=== PATIENT | female | born 1970 | race Caucasian/White ===

== ENCOUNTER 2023-03-24 13:01 | Outpatient (OUT) | payer BC, SELFPAY | END 2023-03-24 13:02 | disposition home or self-care (01) | PROVIDERS: Visit Provider Urology | DX: Z01.818 Encounter for other preprocedural examination (principal); N20.1 Calculus of ureter ==

== ENCOUNTER 2023-04-01 08:38 | Day surgery (SDC) | payer BC, SELFPAY ==
[2023-03-24 13:57] VITALS: BP 121/73; PULSE 84; RESP 20; TEMP 36.3; O2SAT 97; BMI 30.2
[2023-04-01] VITALS (7 sets, daily range): BP systolic 103–168; BP diastolic 74–106; PULSE 77–102; RESP 14–22; TEMP 36.3; O2SAT 96–99; BMI 29.7
[2023-04-01] MEDS: LACTATED RINGER'S SOLUTION 1,000 ML 50 ML IV (09:00)
[2023-04-01] MEDS: CIPROFLOXACIN IN 5 % DEXTROSE 400 MG/200 ML PIGGYBACK 200 MG IV (09:59)
--- NOTE | 2023-04-01 11:38 | P.URON_ITS ---
Urology Surgery Operative Note Operative Note Procedure Date: 04/01/23 Time Out Performed: yes Pre-op Diagnosis: right ureteral calculi, large Post-op Diagnosis: same as pre-op Procedures performed: #1. Cystoscopy. #2. Right rigid ureteral dilation. #3. Right ureteroscopy. #4. holmium laser lithotripsy of very large right ureteral stone burden. #5. Stone basket extraction of ureteral fragments. #6. Right ureteral stent change to 6 Citizen Of [place]. Anesthesia: GETA Primary Surgeon: Basil Caputo Complications: none Estimated blood loss (mL): 5 Findings: extremeely large right ureteral stone burden; greater than 3 cm Specimens: right ureteral stone fragments Drains: 6 Frrench variable length right ureteral stent Indications for Procedures: this lady has 2 large right ureteral stones. One of them is 2 cm and the other is 1.4 cm. She was stented several weeks ago. She now presents for definitive ureteroscopic laser lithotripsy and possible stent change. She has signed an informed consent after all the risks were explained. Detailed description of Procedure: The patient was brought to the operating room and placed on the operating room table in the supine position. SCDs were placed on the lower extremities and turned on and functioning during the entire case. Timeout was done by all parties in the room. We all agreed upon the patient's identification and the planned procedures for this patient. Genn. anesthesia was then administered. The patient was then repositioned into the modified dorsal lithotomy position. All pressure points were satisfactorily padded. Genitalia were sterilely prepped and draped in usual fashion.I started by passing a 22 Citizen Of [place] Olympus cystoscope per urethra and into the bladder. The stent was identified. A flexible grasping forceps was passed and the stent and was grasped and brought out the urethral meatus. I then slid a Glidewire through the stent up into the kidney and remove the old stent. An 04/19 ureteral access sheath was then used to dilate the distal ureter. The stylette and wire were then removed. The tip of the sheath was at the L5. I then passed a flexible ureteroscope through the sheath and into the ureter and got up to the 1st of the 2 large stones. I passed a 272 ? holmium laser fiber through the scope and made contact with the stone. I then did laser lithotripsy at [place] and then 12 W continuously with the dusting mode. I lasered for over a solid our. I went through the 2 large ureteral stones.there was copious amounts of laser dust and sand and gravel. The ureter was extremely dilated in this region. I used a 0 tip nitinol basket and engaged numerous pieces and extracted them out and these were sent for stone analysis. I then did pyeloscopy to tiera a few of the larger pieces up into the kidney and lasered them up there. Once all the stone was dusted the scope was removed. A wire was passed up the sheath into the kidney and the sheath was removed. The cystoscope was backloaded over the wire and passed into the bladder. I then slid a new 6 Citizen Of [place] variable length ureteral stent over the wire up into the kidney. The wire was removed and there were good curls in the kidney and in the bladder. The bladder was drained of its contents. Scope was then removed. The anesthetic was then reversed. She was then transferred to a [facility] bed and wheeled to PACU in stable condition.
[2023-04-01] MEDS: SOLIFENACIN SUCCINATE 10 MG TABLET PO (12:06)
--- NOTE | 2023-04-01 12:24 | PC.NURSE ---
Up to bathroom and voids pink clear urine without difficulty
[2023-04-08 21:08] LABS: CaHPO4 (Brushite) 70 % (.); Calcium Oxalate Monohydrate 20 % (.); Calcium phosphate (hydroxyl) 10 % (.); Size 5x5 mm (.)
== END 2023-04-01 12:40 | disposition home or self-care (01) ==
PROVIDERS: Visit Provider Urology
PROC: (CPT 52356; principal; 2023-04-01 10:00)
DX: N20.1 Calculus of ureter (principal); I10 Essential (primary) hypertension; Z87.442 Personal history of urinary calculi; Z90.710 Acquired absence of both cervix and uterus; F17.210 Nicotine dependence, cigarettes, uncomplicated
CPT/HCPCS: 52356; 76000; 82365; 99999; C1874; J2704

== ENCOUNTER 2023-04-30 08:35 | Outpatient (OUT) | payer BC, SELFPAY ==
[2023-04-30 09:30] LABS: Basophils Percent Auto 0.8 % (0.2-2.0); Eosinophils Absolute Auto 0.1 10^3/uL (0.0-0.7); Eosinophils Percent Auto 2.1 % (0.9-7.0); Hematocrit 33.2 % (36.0-48.0); Hemoglobin 11.5 g/dL (12.0-16.0); Immature Granulocytes Abs Auto 0.01 10^3/uL (0.00-0.03); Immature Granulocytes Pct Auto 0.2 % (0.0-0.5); Lymphocytes Absolute Auto 1.5 10^3/uL (1.2-3.8); Lymphocytes Percent Auto 29.2 % (20.5-60.0); Mean Corpuscular HGB Conc 34.6 g/dL (29.9-35.2); Mean Corpuscular Volume 95.1 fL (81.0-99.0); Mean Platelet Volume 9.5 fL (9.5-13.5); Monocytes Absolute Auto 0.4 10^3/uL (0.3-0.8); Monocytes Percent Auto 7.2 % (1.7-12.0); Neutrophils Absolute Auto 3.2 10^3/uL (1.4-6.5); Neutrophils Percent Auto 60.5 % (43.0-75.0); Platelet Count 298 10^3/uL (150-450); Red Blood Count 3.49 10^6/uL (4.20-5.40); Red Cell Distribution Width 12.7 % (11.0-15.0); White Blood Count 5.3 10^3/uL (4.0-11.0)
[2023-04-30 09:37] LABS: Anion Gap 11.7; BUN Creatinine Ratio 27.5; Calcium 8.7 mg/dL (8.5-10.1); Carbon Dioxide 27.7 mmol/L (21.0-32.0); Chloride 105 mmol/L (98-107); Estimated GFR (African America >60 (>=60); Estimated GFR (Non-African Ame >60 (>=60); Glucose 100 mg/dL (74-106); Potassium 3.4 mmol/L (3.5-5.1); Sodium 141 mmol/L (136-145)
[2023-04-30 09:42] LABS: INR 0.97; Partial Thromboplastin Time 26.5 sec (22.3-36.2); Prothrombin Time 10.3 sec (9.0-11.6)
== END 2023-04-30 08:36 | disposition home or self-care (01) ==
LOC: PST 08:36
PROVIDERS: Visit Provider Urology
DX: Z01.812 Encounter for preprocedural laboratory examination (principal); N20.1 Calculus of ureter; R31.9 Hematuria, unspecified; E78.5 Hyperlipidemia, unspecified
CPT/HCPCS: 80048; 85025; 85610; 85730

== ENCOUNTER 2023-05-03 09:37 | Day surgery (SDC) | payer BC, SELFPAY ==
[2023-04-30 09:20] VITALS: BP 154/98; PULSE 82; RESP 18; TEMP 36.3; O2SAT 98; BMI 28.7
[2023-05-03] VITALS (9 sets, daily range): BP systolic 156–185; BP diastolic 83–102; PULSE 89–112; RESP 12–22; TEMP 36.1–36.2; O2SAT 94–100; BMI 29.4
--- NOTE | 2023-05-03 | FL_ITS ---
[place] [id number] Patient Name: TIFFANIE PETERSEN MRN: [id number] date: 1970 Sex: F Assigned Patient [facility]: [facility] Current Patient Location: Accession/Order Number: [id number] Exam Date: 05/03/2023 13:13 Report Date: 05/04/2023 08:13 At the request of: HASMUKH OVALLE Procedure: FL fluoroscopy <1hr NON-READ EXAM: FL fluoroscopy <1hr NON-READ HISTORY: RIGHT KIDNEY STONE TECHNIQUE: FINDINGS: Please see Operative Report. Electronically authenticated by: RADIOLOGIST NO Date: 05/04/2023 08:13
[2023-05-03] MEDS: LACTATED RINGER'S SOLUTION 1,000 ML 50 ML IV ×2 (10:14→13:54)
[2023-05-03] MEDS: CIPROFLOXACIN IN 5 % DEXTROSE 400 MG/200 ML PIGGYBACK 200 MG IV (12:51)
--- NOTE | 2023-05-03 14:55 | PM.URSON ---
Urology Surgery Operative Note Operative Note Procedure Date: 05/03/23 Time Out Performed: yes Pre-op Diagnosis: right ureteral Steinstrasse Post-op Diagnosis: same as pre-op Procedures performed: #1. Cystoscopy. #2. Right stent change to 6 [place] variable length. #3. Right ureteroscopy. #4. Laser lithotripsy of multiple ureteral stone fragments. #5. Stone basket extraction. Anesthesia: General-LMA Primary Surgeon: Basil Caputo Complications: none Estimated blood loss (mL): 5 Findings: multiple stone fragments within the right ureter; some of these impacted. Specimens: right ureteral calculi fragments Indications for Procedures: this lady had 2 large stones in her right ureter. One was 14 mm the other was 20 mm. She underwent laser lithotripsy and stent placement several weeks agoo. She developed Steinstrasse from the copious fragments. She now presents for repeat ureteroscopic laser lithotripsy and stent change.she has signed an informed consent for these procedures after risks were explained. Some of these include bleeding, infection, anesthesia, ureteral stricture development and stone recurreence to name a few. Detailed description of Procedure: The patient was brought to the operating room and placed on the operating room table in the supine position. SCDs were placed on the lower extremities and turned on and functioning during the entire case. Timeout was done by all parties in the room. We all agreed upon the patient's identification and the planned procedures for this patient. Genn. anesthesia was then administered. The patient was then repositioned into the modified dorsal lithotomy position. All pressure points were satisfactorily padded. Genitalia were sterilely prepped and draped in usual fashion.I started by passing a 22 [place] Olympus cystoscope per urethra and into the bladder. The old stent was identified and grasped with a flexible grasper. The end was brought out the urethral meatus. I then slid a Glidewire through the stent up into the kidney and remove the old stent. I then passed a semirigid ureteroscope adjacent to the wire up the right ureter and got to the 1st stone fragments. I used a 272 ? holmium laser fiber and passed it through the scope and made contact with the stones. I initially began doing laser lithotripsy at 7 W continuous but switched to 9 W with the dusting mode. I slowly steadily went through all of the stone pieces all the way up to the L45 area. Some of these were tightly impacted. I was able to get all of the stone fragmented and removed. After the laser lithotripsy was done I then used a 0 tip nitinol basket and engaged pieces and extracted them down and out. I went up-and-down the ureter numerous times extracting pieces until the ureter was entirely free of stone. I then backloaded the cystoscope over the wire and passed it back into the bladder. I then slid a new 6 [place] variable length stent over the wire up into the kidney. The wire was removed and there were good curls in the kidney and in the bladder. I then used the Freepathick evacuator to get all stone pieces out from the base of the bladder. These were sent for stone analysis. The bladder was drained of its contents and the scope was then removed. She was then [facility] and wheeled to PACU in stable condition.
--- NOTE | 2023-05-03 15:22 | PC.NURSE ---
Has urge to void; placed on bedpan
--- NOTE | 2023-05-03 15:25 | PC.NURSE ---
Removed from bedpan and voided pink clear urine without clots
--- NOTE | 2023-05-03 15:50 | PC.NURSE ---
Feeling slightly nauseated; no emesis; up to bathroom and voids without difficulty
--- NOTE | 2023-05-03 15:57 | PC.NURSE ---
Has pain on top of head; given caffeinated tea
[2023-05-03] MEDS: PROMETHAZINE HCL 25 MG/ML VIAL 12.5 MG IV (16:13)
[2023-05-03] MEDS: ACETAMINOPHEN 325 MG TABLET 650 MG PO (16:30)
--- NOTE | 2023-05-03 16:31 | PC.NURSE ---
PAIN MEDS GIVEN AT THIS TIME FOR HEADACHE
--- NOTE | 2023-05-03 16:35 | PC.NURSE ---
Medicated with Phenergan IV as ordered for c/o nausea; no emesis
--- NOTE | 2023-05-03 16:54 | PC.NURSE ---
PPATIENT STATES SHE FEELS BETTER AFTER HAVING CRACKERS IN HER BELLY WHICH IS WHY SHE HAS HEADACHE. PATIENT REQUESTED TO GO HOME AT THIS TIME.
[2023-05-10 20:07] LABS: CaHPO4 (Brushite) 50 % (.); Calcium Oxalate Monohydrate 40 % (.); Calcium phosphate (hydroxyl) 10 % (.); Size 6x4 mm (.)
== END 2023-05-03 16:40 | disposition home or self-care (01) ==
PROVIDERS: Visit Provider Urology
PROC: (CPT 918; principal; 2023-05-03 11:10)
DX: N20.1 Calculus of ureter (principal); R31.9 Hematuria, unspecified; E78.5 Hyperlipidemia, unspecified; F32.A Depression, unspecified; I10 Essential (primary) hypertension; E11.9 Type 2 diabetes mellitus without complications; Z90.710 Acquired absence of both cervix and uterus; F17.210 Nicotine dependence, cigarettes, uncomplicated
CPT/HCPCS: 52356; 36415; 76000; 82365; 99999; J2704

== ENCOUNTER 2023-09-16 14:03 | Outpatient (OUT) | payer BC, SELFPAY ==
--- NOTE | 2023-09-16 14:31 | ECG_ITS ---
[facility] Test Date: 2023-09-16 Pat Name: TIFFANIE PETERSEN Department: Room: - Gender: Female [employer] Mer[employer]: : 1970 Requested By: HASMUKH OVALLE Order Number: [id number] Reading MD: JAIME HARRISON Measurements Intervals [place] Rate: 81 P: 31 FL: 185 QRS: 28 QRSD: 93 T: 31 QT: 369 QTc: 428 Interpretive Statements SINUS RHYTHM No previous ECG available for comparison Electronically Signed On 09-16-2023 23:09:30 EDT by JAIME HARRISON
--- NOTE | 2023-09-16 15:00 | P.GSHP_ITS ---
History of Present Illness History of Present Illness Chief complaint: left kidney stone Narrative: Patient presents for preadmission testing. Patient reports a long history of kidney stones with multiple procedures in the past. She states she has a known left-sided kidney stone but is not having any symptoms at this time. Review of Systems ROS Narrative REVIEW OF SYSTEMS: Negative except as stated in HPI, ten or more systems reviewed. Constitutional: No fever , chills, weakness ENT: No sore throat or epistaxis Cardiovascular: No edema, chest pain, palpitations, or activity intolerance Respiratory: No shortness of breath, cough, or wheezing Musculoskeletal: No joint pain or swelling Gastrointestinal: No abdominal pain, constipation, diarrhea, or vomiting Genitourinary: No dysuria or hematuria Neurological: No numbness, tingling, weakness, or headache Psychiatric: No mood changes PFSH PFS Medical History (Updated 09/16/23 @ 14:49 by Danii Rowland NP) Postoperative nausea and vomiting ?R11.2 - Nausea with vomiting, unspecified (ICD-10) ?Z98.890 - Other specified postprocedural states (ICD-10) Anemia ?D64.9 - Anemia, unspecified (ICD-10) Depression ?F32.A - Depression, unspecified (ICD-10) Anxiety ?F41.9 - Anxiety disorder, unspecified (ICD-10) Migraine ?G43.909 - Migraine, unspecified, not intractable, without status migrainosus (ICD-10) GERD (gastroesophageal reflux disease) ?K21.9 - Gastro-esophageal reflux disease without esophagitis (ICD-10) High cholesterol ?E78.00 - Pure hypercholesterolemia, unspecified (ICD-10) S/P extracorporeal shock wave therapy (2018) ?Z98.890 - Other specified postprocedural states (ICD-10) Right flank pain ?R10.9 - Unspecified abdominal pain (ICD-10) Kidney stones ?N20.0 - Calculus of kidney (ICD-10) Hypertension ?I10 - Essential (primary) hypertension (ICD-10) Surgical History (Updated 09/16/23 @ 14:36 by Danii Rowland NP) H/O cystoscopy (05/03/23) ?Z98.890 - Other specified postprocedural states (ICD-10) H/O cystoscopy (04/01/23) ?Z98.890 - Other specified postprocedural states (ICD-10) H/O lithotripsy (03/08/23) ?Z98.890 - Other specified postprocedural states (ICD-10) H/O wisdom tooth extraction ?K08.409 - Partial loss of teeth, unspecified cause, unspecified class (ICD- 10) H/O foot surgery ?Z98.890 - Other specified postprocedural states (ICD-10) H/O knee surgery ?Z98.890 - Other specified postprocedural states (ICD-10) H/O: hysterectomy ?Z90.710 - Acquired absence of both cervix and uterus (ICD-10) Family History (Updated 03/24/23 @ 13:52 by Mary Washington RN) Other Family history of cancer Family history of diabetes mellitus Family history of hypertension Social History (Updated 09/16/23 @ 14:46 by Danii Rowland NP) Within the past year, how often did you have a drink containing alcohol: never Within the past year, how often did you have six or more drinks on one occasion: never Score interpretation: A score less than 3 is consistent with normal alcohol consumption. 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 Known occupational exposures/hazards: No Highest level of school completed/degree received: GED or equivalent Are you now , , , , never or living with a partner: In a typical week, how many times do you talk on the telephone with family, friends, or neighbors: 3 or more times per week How often do you get together with friends or relatives: 3 or more times per week How often do you attend zoroastrianism or mandaeism services: never Gender Identity: female Meds Home Medications and Allergies Home Medications ?Medication ?Instructions ?Recorded ?Confirmed ?Type alendronate 35 mg tablet 35 mg PO .weekly 03/24/23 09/16/23 History atenolol 50 mg tablet 50 mg PO QPM 03/24/23 09/16/23 History atorvastatin 20 mg tablet 20 mg PO QDAY 03/24/23 09/16/23 History cyclobenzaprine 10 mg tablet 10 mg PO BID 03/24/23 09/16/23 History losartan 50 mg tablet 50 mg PO DAILY 03/24/23 09/16/23 History meloxicam 7.5 mg tablet 7.5 mg PO DAILY 03/24/23 09/16/23 History sertraline 25 mg tablet 25 mg PO DAILY 03/24/23 09/16/23 History trazodone 50 mg tablet 50 mg PO QPM PRN insomnia 03/24/23 09/16/23 History buspirone 10 mg tablet 10 mg PO TID ANXIETY 05/03/23 09/16/23 History albuterol sulfate 90 mcg/actuation 2 inh inhalation Q4H PRN shortness 09/16/23 09/16/23 History aerosol inhaler of breath or wheezing cholecalciferol (vitamin D3) 25 25 mcg PO DAILY 09/16/23 09/16/23 History mcg (1,000 unit) capsule omeprazole 20 mg capsule,delayed 20 mg PO DAILY 09/16/23 09/16/23 History release vitamins B1 B6 B12 tablet tab 09/16/23 History Allergies Allergy/AdvReac Type Severity Reaction Status Date / Time Penicillins AdvReac Mild Unknown Verified 09/16/23 14:41 vancomycin AdvReac Mild hallucinate Verified 09/16/23 14:41 Exam Narrative Exam Narrative: Constitutional: Awake, alert, comfortable, well-appearing, nontoxic, interactive, vital signs as charted Head: Normocephalic, atraumatic Eyes: Conjunctiva and lids normal to inspection, pupils normal ENT: Tympanic membranes pearly jones, nonerythematous, noninjected, naris patent, posterior oropharynx clear, oral mucosa moist Neck: Supple, normal appearance, normal range of motion, no meningeal signs, no lymphadenopathy Respiratory: No respiratory distress, breath sounds clear Cardiovascular: Regular rate and rhythm, strong and regular heart tones Abdomen: Nontender, normal bowel sounds, soft, no CVA tenderness Musculoskeletal: Normal gait, no swelling or edema Skin: No rashes or induration, no lesions, only visible skin inspected Neuro: No neurological deficits, normal sensation Psychiatric: Oriented ?3, normal affect Assessment and Plan Assessment and Plan (1) Kidney stones: Plan Left ESWL scheduled with Dr. Caputo 09/30/2023.
[2023-09-16 15:16] LABS: Anion Gap 11.6; BUN Creatinine Ratio 30.4; Calcium 9.3 mg/dL (8.5-10.1); Carbon Dioxide 30.1 mmol/L (21.0-32.0); Chloride 105 mmol/L (98-107); Estimated GFR (African America >60 (>=60); Estimated GFR (Non-African Ame >60 (>=60); Glucose 89 mg/dL (74-106); Potassium 3.7 mmol/L (3.5-5.1); Sodium 143 mmol/L (136-145)
[2023-09-16 15:19] LABS: Basophils Percent Auto 0.5 % (0.2-2.0); Eosinophils Absolute Auto 0.1 10^3/uL (0.0-0.7); Eosinophils Percent Auto 1.1 % (0.9-7.0); Hematocrit 35.7 % (36.0-48.0); Hemoglobin 11.9 g/dL (12.0-16.0); Immature Granulocytes Abs Auto 0.04 10^3/uL (0.00-0.03); Immature Granulocytes Pct Auto 0.6 % (0.0-0.5); Lymphocytes Absolute Auto 1.9 10^3/uL (1.2-3.8); Lymphocytes Percent Auto 30.6 % (20.5-60.0); Mean Corpuscular HGB Conc 33.3 g/dL (29.9-35.2); Mean Corpuscular Hemoglobin 31.6 pg (26.7-34.0); Mean Corpuscular Volume 94.9 fL (81.0-99.0); Mean Platelet Volume 9.4 fL (9.5-13.5); Monocytes Absolute Auto 0.5 10^3/uL (0.3-0.8); Monocytes Percent Auto 8.2 % (1.7-12.0); Neutrophils Absolute Auto 3.8 10^3/uL (1.4-6.5); Platelet Count 284 10^3/uL (150-450); Red Blood Count 3.76 10^6/uL (4.20-5.40); Red Cell Distribution Width 13.2 % (11.0-15.0); White Blood Count 6.4 10^3/uL (4.0-11.0)
[2023-09-16 15:29] LABS: INR 0.94; Partial Thromboplastin Time 25.6 sec (22.3-36.2)
== END 2023-09-16 14:04 | disposition home or self-care (01) ==
LOC: PST 14:04
PROVIDERS: Visit Provider Urology
DX: Z01.810 Encounter for preprocedural cardiovascular examination (principal); Z01.812 Encounter for preprocedural laboratory examination; Z01.818 Encounter for other preprocedural examination; N20.0 Calculus of kidney
CPT/HCPCS: 80048; 85025; 85610; 85730; 93005; G0463

== ENCOUNTER 2023-09-30 06:33 | Day surgery (SDC) | payer BC, SELFPAY ==
[2023-09-16 14:57] VITALS: BP 139/91; PULSE 86; TEMP 36.3; O2SAT 96; BMI 29.6
[2023-09-30] VITALS (12 sets, daily range): BP systolic 112–146; BP diastolic 66–90; PULSE 68–84; TEMP 36.2–36.3; O2SAT 96–98; BMI 29.6
--- OUTSIDE RECORDS SUMMARY | 2023-09-30 06:36 | XMS_ITS | CCD ---
Author Organization [facility] Care Team Providers [employer] Professor Name Role Phone AMBURN, PHILLIP Unavailable Unavailable SHALA, ALEJO Huerta Unavailable Unavailable AMBURN, FELICITY PHILLIP Admitting Unavailable AMBURN, FELICITY PHILLIP Attending Unavailable AMBURN, FELICITY PHILLIP Primary Care Unavailable AMBURN, FELICITY PHILLIP Consulting Unavailable PHYSICIAN, DEFAULT Admitting Unavailable PHYSICIAN, DEFAULT Attending Unavailable SAI JARQUIN Primary Care Unavaila ble PHYSICIAN, DEFAULT Admitting Unavailable PHYSICIAN, DEFAULT Attending Unavailable SAI JARQUIN Primary Care Unavaila ble PHYSICIAN, DEFAULT Admitting Unavailable PHYSICIAN, DEFAULT Attending Unavailable SAI JARQUIN Primary Care Unavaila ble Gabriella Rojas Primary Care Physician [phone] Dr. Gabriella Rojas Primary Care Unavailable DO Manny Neff Emergency Provider MD Basil Caputo Other Provider MD Gabriella Rojas Primary Care Provider [phone] CheryDO Nelson Attending Provider VINNY Catalan Emergency Provider MD Basil Caputo Attending Provider [phone] DO Manny Neff Emergency Provider [phone] MD Basil Caputo Other Provider [phone] MD Gabriella Rojas Primary Care Provider [phone] BuchananDO Nelson Attending Provider [phone] VINNY Catalan Emergency Provider MD Basil Caputo Attending Provider [phone] PAYTON NOEL Attending Unavailab MD Gabriella Alex Primary Care Provider [phone] MD Basil Caputo Attending Provider MD Gabriella Rojas Primary Care Provider [phone] MD Basil Caputo Attending Provider [phone] DO Everardo Edwards Emergency Provider Unarii MD Tye Martinez Admit Provider MD Tye Gracia Attending Provider MD Ramon Isaac Attending Provider [phone] MD Adonay Lugo Other Provider Basil Caputo Attending Unavailable Caputo, Basil Admitting Unavailable Orjas, Gabriella Primary Care Unavailable Caputo, Basil Admitting Unavailable Caputo, Basil Attending Unavailable Rojas, Gabriella Primary Care Unavailable Caputo, Basil Admitting Unavailable Caputo, Basil Attending Unavailable Rojas, Gabriella Primary Care Unavailable Tye Gracia Admitting Unavailable Adonay Lugo Consulting Unavailable Ramon Isaac Attending Unavailable Rojas, Gabriella Primary Care Unavailable Rojas, Gabriella Primary Care Unavailable Giancarlo Catalan Admitting Unavailable Giancarlo Catalan Attending Unavailable Rojas, Gabriella Primary Care Unavailable Chery, Nelson T Admitting Unavailable Chery, Nelson T Attending Unavailable Caputo, Basil Consulting Unavailable YAMILE, Basil R Attending Unavailable Adonay LUGO Referring Unavailable Adonay LUGO Attending Unavailable YAMILE, Basil R Attending Unavailable CAPUTO, Basil R Attending Unavailable CAPUTO, Basil R Referring Unavailable CAPUTO, Basil R Attending Unavailable CAPUTO, Basil R Attending Unavailable CAPUTO, Basil R Attending Unavailable Allergies Allergy Classification Reported Allergen(s) Allergy Type Date of Onset Reaction(s) Facility (5 sources) Penicillin; Translations: [penicillin] Drug Allergy Unknown (qualifier value) [facility] (12 sources) Vancomycin; Translations: [vancomycin] Drug Allergy 3 Itching, Hives [facility] (8 sources) Penicillins; Translations: [Penicillins] Allergy to substance 3 Unknown Reaction [facility] (1 source) Vancomycin Drug Allergy 4 [facility] Repository Medications Current Medications Medication Drug Class(es) Dates Sig (Normalized) Sig (Original) acetaminophen 1000 mg oral tablet (4 sources) Start: 04-01-2017 take 1000 mg by mouth every six hours as needed for pain Tylenol 1,000 mg, Oral, q6hr, PRN as needed for pain Start Date: 04/01/17 Status: Ordered acetaminophen 325 mg / HYDROcodone bitartrate 5 mg oral tablet (4 sources) Opioid Agonist Start: 08-29-2020 [place] 325 mg-5 mg oral tablet 1 tab(s), Oral, q6hr as needed for pain, 12 tab(s), Refill(s) 0, [facility]/pharmacy #[id number], 157, cm, 08/28/20 19:59:00 EDT, Height/Length Dosing, 72, kg, 08/28/20 19:59:00 EDT, Weight Dosing Start Date: 08/29/20 Status: Ordered [id number] 200 actuat albuterol 0.09 mg/actuat metered dose inhaler (2 sources) beta2-Adrenergic Agonist Start: 09-21-2023 take 1 puff(s) by inhalation every four hours Albuterol Sulfate Active 2 PUFF INHALATION Every 4 hours September 21, 2023 12:00am 120 actuat albuterol 0.1 mg/actuat / ipratropium bromide 0.02 mg/actuat inhalation spray (4 sources) Anticholinergic, beta2-Adrenergic Agonist Start: 03-25-2017 take 1 puff(s) by inhalation four times daily Combivent Respimat 20 mcg-100 mcg 1 puff(s), Inhalation, QID Shortness of breath or wheezing, 4 gram, Refill(s) 0 Start Date: 03/25/17 Status: Ordered alendronic acid 35 mg oral tablet (7 sources) Bisphosphonate Start: 03-08-2023 take 35 mg by mouth every week Alendronate Active 35 MG PO every week March 08, 2023 12:00am atenolol 50 mg oral tablet (11 sources) beta-Adrenergic Kwame Start: 03-08-2023 take 50 mg by mouth once daily in the evening Atenolol Active 50 MG PO Every evening March 08, 2023 12:00am Start: 04-01-2017 take 100 mg by mouth at bedtim e atenolol 100 mg, Oral, Bedtime, High blood pressure Start Date: 04/01/17 Status: Ordered atorvastatin 20 mg oral tablet (7 sources) HMG-CoA Reductase Inhibitor Start: 03-08-2023 take 20 mg by mouth once daily in the morning Atorvastatin Active 20 MG PO Every morning March 08, 2023 12:00am ciprofloxacin 500 mg oral tablet (1 source) Quinolone Antimicrobial Start: 09-21-2023 take 1 tablet by mouth every two hours Ciprofloxacin Hcl (Cipro) 500 mg tablet Active 500 MG PO Q12H September 21, 2023 12:00am administer dose at least 2 hrs before/6 hrs after dairy products, calcium, zinc, and/or iron-containing products cyclobenzaprine hydrochloride 10 mg oral tablet (11 sources) Muscle Relaxant Start: 03-25-2017 take 10 mg by mouth twice daily Cyclobenzaprine Active 10 MG PO Twice daily March 08, 2023 12:00am losartan potassium 50 mg oral tablet (11 sources) Angiotensin 2 Receptor Kwame Start: 10-19-2013 take 50 mg by mouth once daily Losartan Active 50 MG PO Daily March 08, 2023 12:00am meloxicam 7.5 mg oral tablet (7 sources) Nonsteroidal Anti-inflammatory Drug Start: 03-08-2023 take 7.5 mg by mouth once daily Meloxicam Active 7.5 MG PO Daily March 08, 2023 12:00am Multi Vitamins oral tablet (4 sources) Start: 03-25-2017 Multi Vitamins oral tablet 1 tab(s), Oral, Daily, 30 tab(s), Refill(s) 0, Prophylaxis Start Date: 03/25/17 Status: Ordered naproxen 500 mg oral tablet (4 sources) Nonsteroidal Anti-inflammatory Drug Start: 11-10-2018 take 1 tablet by mouth twice daily at mealtime Naprosyn 500 mg Tab 500 mg = 1 tab(s), Oral, BID, with food, # 60 tab(s), Refills(s) 0 Start Date: 11/10/18 Status: Ordered omeprazole 20 mg oral tablet (4 sources) Proton Pump Inhibitor Start: 03-25-2017 Omeprazole 20 mg Cap - DR 20 mg, Oral, Daily, Refills(s) 0, Control of stomach acid Start Date: 03/25/17 Status: Ordered Start: 03-25-2017 Omeprazole 20 mg Cap - DR 20 mg, Oral, Daily, Refills(s) 0, Control of stomach acid Start Date: 03/25/17 Status: Ordered potassium bicarbonate 25 meq effervescent oral tablet (2 sources) Start: 09-21-2023 Potassium Bicarb-Citric Acid (Effer-K) 25 mEq tablet, effervescent Active 25 MEQ PO Twice daily September 21, 2023 12:00am promethazine hydrochloride 25 mg oral tablet (4 sources) Phenothiazine Start: 11-10-2018 take 1 tablet by mouth every six hours as needed for nausea promethazine 25 mg Tab 25 mg = 1 tab(s), Oral, q6hr, PRN for nausea/vomiting/He adache, No driving or use at work, # 10 tab(s), Refills(s) 0 Start Date: 11/10/18 Status: Ordered sertraline 25 mg oral tablet (7 sources) Serotonin Reuptake Inhibitor Start: 03-08-2023 take 25 mg by mouth once daily Sertraline Active 25 MG PO Daily March 08, 2023 12:00am solifenacin succinate 10 mg oral tablet (7 sources) Cholinergic Muscarinic Antagonist Start: 03-08-2023 take 1 tablet by mouth once daily Solifenacin (Vesicare) 10 mg tablet Active 10 MG PO Daily March 08, 2023 12:00am traZODone hydrochloride 50 mg oral tablet (7 sources) Serotonin Reuptake Inhibitor Start: 03-08-2023 take 50 mg by mouth once daily at bedtime Trazodone Active 50 MG PO Daily at bedtime March 08, 2023 12:00am Completed/Discontinued Medications Medication Drug Class(es) Dates Sig (Normalized) Sig (Original) acetaminophen 325 mg / oxyCODONE hydrochloride 5 mg oral tablet (6 sources) Opioid Agonist Start: 03-29-2023 End: 09-21-2023 take 1 tablet by mouth every six hours Oxycodone-Acetamino phen (Percocet) 5-325 mg tablet Discontinued 1 TAB PO Q6H 10 March 29, 2023 September 21, 2023 2:40am Anxiety (7 sources) Start: 03-08-2023 End: 03-08-2023 Anxiety Discontinued March 07, 2023 11:00pm March 08, 2023 12:39pm Start: 03-08-2023 End: 03-08-2023 Anxiety Discontinued March 08, 2023 12:00am March 08, 2023 1:39pm doxycycline hyclate 100 mg oral capsule (7 sources) Tetracycline-class Drug Start: 03-08-2023 End: 09-21-2023 take 100 mg by mouth once daily Doxycycline Hyclate Discontinued 100 MG PO Daily March 08, 2023 12:00am September 21, 2023 2:40am K-Effervescent 25 mEq oral tablet, effervescent (1 source) Start: 08-25-2023 End: 08-19-2024 take 1 tablet by mouth twice daily K-Effervescent 25 mEq oral tablet, effervescent 25 mEq = 1 tab(s), Oral, BID, X 30 day(s), # 60 tab(s), Refills(s) 11, Pharmacy: [place] [id number] [facility], 158, cm, 08/25/23 15:35:00 EDT, Height/Length Dosing, 73, kg, 08/25/23 15:35:00 EDT, Weight Dosing Start Date: 08/25/23 Stop Date: 08/19/24 Status: Ordered Problems Active Problems Problem Classification Problem Date Documented Date Episodic/Chronic Calculus of urinary tract (20 sources) Kidney stone; Translations: [Calculus of kidney] Onset: 3 09-16-2015 Episodic Chronic obstructive pulmonary disease and bronchiectasis (1 source) Chronic obstructive pulmonary disease, unspecified; Translations: [COPD UNSPECIFIED] Onset: 9 Chronic Deficiency and other anemia (1 source) Anemia, unspecified; Translations: [ANEMIA UNSPECIFIED] Onset: 9 Episodic Diabetes mellitus without complication (9 sources) Type 2 diabetes mellitus without complications; Translations: [Diabetes mellitus] Onset: 9 08-18-2013 Chronic Disorders of lipid metabolism (3 sources) Hyperlipidemia, unspecified; Translations: [Hyperlipidemia] Onset: 9 03-30-2023 Chronic Esophageal disorders (1 source) Gastro-esophageal reflux disease without esophagitis; Translations: [GERD WITHOUT ESOPHAGITIS] Onset: 9 Chronic Essential hypertension (9 sources) Essential (primary) hypertension; Translations: [Hypertensive disorder] Onset: 9 11-16-2013 Chronic Genitourinary symptoms and ill-defined conditions (3 sources) Proteinuria, unspecified; Translations: [Abnormal urinary product] Onset: 9 Episodic Headache; including migraine (5 sources) Migraine, unspecified, not intractable, without status migrainosus; Translations: [Migraine] Onset: 9 11-10-2018 Chronic Mood disorders (2 sources) Depressive disorder 03-30-2023 Chronic Nonspecific chest pain (4 sources) Chest pain, unspecified; Translations: [CHEST PAIN UNSPECIFIED] Onset: 9 Episodic Nutritional deficiencies (5 sources) Vitamin D deficiency, unspecified; Translations: [Vitamin D deficiency] Onset: 9 11-10-2018 Chronic Osteoarthritis (4 sources) Arthritis 04-01-2017 Chronic Other diseases of kidney and ureters (1 source) Urinary tract obstruction; Translations: [Hydronephrosis with renal and ureteral calculous obstruction] Onset: 3 Episodic Other diseases of kidney and ureters (2 sources) Hydroureteronephrosis ; Translations: [Unspecified hydronephrosis] 09-21-2023 Episodic Other diseases of kidney and ureters (3 sources) Unspecified hydronephrosis; Translations: [Hydronephrosis] Onset: 4 09-21-2023 Episodic Other diseases of kidney and ureters (3 sources) Hydronephrosis with renal and ureteral calculous obstruction; Translations: [Hydronephrosis with urinary obstruction due to ureteral calculus] Onset: 4 09-21-2023 Episodic Other injuries and conditions due to external causes (3 sources) Foreign body in bladder; Translations: [Foreign body in bladder, initial encounter] Onset: 3 Episodic Other nutritional; endocrine; and metabolic disorders (4 sources) Body mass index 30+ - obesity 07-31-2020 Chronic Other nutritional; endocrine; and metabolic disorders (1 source) Body mass index (BMI) 27.0-27.9, adult; Translations: [BODY MASS INDEX BMI 27.0-27.9 ADULT] Onset: 9 Episodic Screening and history of mental health and substance abuse codes (4 sources) Tobacco use and exposure - finding 07-31-2020 Chronic Substance-related disorders (5 sources) Nicotine dependence, cigarettes, uncomplicated; Translations: [Smoker] Onset: 9 09-16-2015 Chronic Comment on above: Added secondary to d ocumentation in Social History. Unclassified (4 sources) Emphysema 08-18-2013 Unclassified (2 sources) Obstructive hydronephrosis 05-18-2023 Unclassified (1 source) Asymptomatic microscopic hematuria 08-25-2023 Unclassified (1 source) Urine finding 08-25-2023 Past or Other Problems Problem Classification Problem Date Documented Da te Episodic/Chronic Abdominal pain (12 sources) Flank pain; Translations: [Unspecified abdominal pain] Onset: 03-29-2023 03-08-2023 Episodic Other ear and sense organ disorders (1 source) Unspecified acute noninfective otitis externa, left ear; Translations: [Unspecified acute noninfective otitis externa, left ear] Onset: 01-13-2017 Episodic Results Test Name Value Interpretation Reference Range Facility Consultation Noteon 09-27-19 24 Consultation Note [id number]#[id number] Normal [facility] Operative Reporton Operative Report [id number]#[id number] Normal [facility] Formson 09-23-2023 Forms [id number]#[id number] Normal [facility] Insurance Correspondence Off iceon 09-23-2023 Insurance Correspondence Office [id number]#[id number] Normal [facility] Automated basophil %Ordered By: Tye Gracia on 09-22-2023 Basophils/100 WBC (Bld) 0.4 % Normal . [facility] Comment on above: Performed By: #### A ROXANE ERAZO #### [address] Automated basophil countOrde red By: Tye Gracia on 09-22-2023 Basophils (Bld) [#/Vol] 0.0 10*3/uL Normal 0.0-0.2 [facility] Comment on above: Result Comment: PERF ORMED BY: [place] [address] PATHOLOGIST REACH TRUCK OPERATOR NICHOLAS FLETCHER M.D. Performed By: #### A KACEY, CUU #### [address] Automated blood monocyte cou ntOrdered By: Tye Gracia on 09-22-2023 Monocytes (Bld) [#/Vol] 0.6 10*3/uL Normal 0.0-0.8 [facility] Comment on above: Performed By: #### A KACEY, CUU #### [address] Automated eosinophil %Ordere d By: Tye Gracia on 09-22-2023 Eosinophils/100 WBC (Bld) 0.9 % Normal . [facility] Comment on above: Performed By: #### A KACEY, CUU #### [address] Automated eosinophil countOr dered By: Tye Gracia on 09-22-2023 Eosinophils (Bld) [#/Vol] 0.1 10*3/uL Normal 0.0-0.45 [facility] Comment on above: Performed By: #### A KACEY, CUU #### [address] Automated monocyte %Ordered By: Tye Gracia on 09-22-2023 Monocytes/100 WBC (Bld) 8.9 % Normal . [facility] Comment on above: Performed By: #### A KACEY, CUU #### [address] Automated neutrophil %Ordere d By: Tye Gracia on 09-22-2023 Neutrophils/100 WBC (Bld) 66.8 % Normal . [facility] Comment on above: Performed By: #### A KACEY, CUU #### [address] Basic Metabolic Panelon 09-05 Creatinine Clr Calc Pharmacy 65.28 Normal [facility] Comment on above: Result Comment: PERF ORMED BY: [place] [address] PATHOLOGIST REACH TRUCK OPERATOR NICHOLAS FLETCHER M.D. Performed By: #### A KACEY, CUU #### [place] [address] [place] GFR/1.73 sq M.predicted MDRD (S/P/Bld) [Vol rate/Area] mL/min/{1.73_m2} Normal [facility] Comment on above: Performed By: #### A KACEY CUU #### [address] Calcium [Mass/volume] in Ser um or PlasmaOrdered By: Tye Gracia on 09-22-2023 Calcium [Mass/Vol] 9.3 mg/dL Normal 8.6-10.3 [facility] Comment on above: Performed By: #### A KACEY, CUU #### [address] Carbon dioxide, total [Moles /volume] in Serum or PlasmaOrdered By: Tye Gracia on 09-22-2023 CO2 [Moles/Vol] 25.2 mmol/L Normal 21.0-31.0 [facility] Comment on above: Performed By: #### A KACEY, CUU #### [place] [address] [place] Chloride [Moles/volume] in S amteo or PlasmaOrdered By: Tye Gracia on 09-22-2023 Chloride [Moles/Vol] 109 mmol/L High 98-107 [facility] Comment on above: Performed By: #### A KACEY, CUU #### [address] Complete Blood Count Auto Di ffon 09-22-2023 Mean Corpuscular HGB Conc 34.9 g/dL Normal 32.0-35.0 [facility] Comment on above: Performed By: #### A DDONUAPLUS, CUU #### [facility] [address] NRBC% 0.1 /100{WBC} Normal 0-0.5 [facility] Comment on above: Performed By: #### A JESSICAONUAKALA, CUU #### [facility] [address] [place] [address] [place] Creatinine [Mass/volume] in Serum or PlasmaOrdered By: Tye Gracia on 09-22-2023 Creatinine [Mass/Vol] 0.95 mg/dL Normal 0.60-1.20 [facility] Comment on above: Performed By: #### A KACEY, CUU #### [address] Erythrocyte distribution wid th [Ratio] by Automated countOrdered By: Tye Gracia on 09-22-2023 Erythrocyte distribution width (RBC) [Ratio] 13.9 % Normal 11.9-15.3 [facility] Comment on above: Performed By: #### A KACEY, CUU #### [place] [address] [place] Erythrocytes [#/volume] in B lood by Automated countOrdered By: Tye Gracia on 09-22-2023 RBC (Bld) [#/Vol] 3.46 10*6/uL Low 3.60-5.00 [facility] Comment on above: Performed By: #### A KACEY, CUU #### [place] [address] [place] Glucose [Mass/volume] in Ser um or PlasmaOrdered By: Tye Gracia on 09-22-2023 Glucose [Mass/Vol] 79 mg/dL Normal 70-100 [facility] Comment on above: ADA recommended refe rence rangeRandom Glucose Reference Range is dependent on time and content of last meal. Glucose of more than 200 mg/dL in a nonstressed, ambulatory subject supports the diagnosis of Diabetes Mellitus. Result Comment: [place] om Glucose Reference Range is dependent on time and content of last meal. Glucose of more than 200 mg/dL in a nonstressed, ambulatory subject supports the diagnosis of Diabetes Mellitus. ADA recommended reference range Performed By: #### A KACEY, CUU #### [address] Hematocrit [Volume Fraction] of Blood by Automated countOrdered By: Tye Gracia on 09-22-2023 Hematocrit (Bld) [Volume fraction] 32.2 % Low 34.0-46.4 [facility] Comment on above: Performed By: #### A KACEY, CUU #### [address] Hemoglobin [Mass/volume] in BloodOrdered By: Tye Gracia on 09-22-2023 Hemoglobin (Bld) [Mass/Vol] 11.2 g/dL Low 11.8-15.4 [facility] Comment on above: Performed By: #### A KACEY, CUU #### [address] Leukocytes [#/volume] correc janet for nucleated erythrocytes in Blood by Automated counOrdered By: Tye Gracia on 09-22-2023 WBC corrected for nucl RBC Auto (Bld) [#/Vol] 6.2 10*3/uL 3.8-11.6 [facility] Leukocytes [#/volume] in Blo od by Automated countOrdered By: Tye Gracia on 09-22-2023 WBC (Bld) [#/Vol] 6.2 10*3/uL Normal 3.8-11.6 [facility] Comment on above: Performed By: #### A KACEY, CUU #### [place] [address] [place] Lymphocytes [#/volume] in Bl ood by Automated countOrdered By: Tye Gracia on 09-22-2023 Lymphocytes (Bld) [#/Vol] 1.4 10*3/uL Normal 1.00-4.8 [facility] Comment on above: Performed By: #### A KACEY, CUU #### [address] Lymphocytes/100 leukocytes i n Blood by Automated countOrdered By: Tye Gracia on 09-22-2023 Lymphocytes/100 WBC (Bld) 23.0 % Normal . [facility] Comment on above: Performed By: #### A KACEY, CUU #### [address] MCH [Entitic mass] by Automa janet countOrdered By: Tye Gracia on 09-22-2023 MCH (RBC) [Entitic mass] 32.4 pg Normal 24.7-34.3 [facility] Comment on above: Performed By: #### A KACEY, CUU #### [address] MCHC Auto (RBC) [Mass/Vol]Or dered By: Tye Gracia on 09-22-2023 MCHC (RBC) [Mass/Vol] 34.9 g/dL 32.0-35.0 [facility] MCV [Entitic volume] by Auto mated countOrdered By: Tye Gracia on 09-22-2023 MCV (RBC) [Entitic vol] 93.1 fL Normal 80-100 [facility] Comment on above: Performed By: #### A KACEY, CUU #### [address] Neutrophils [#/volume] in Bl ood by Automated countOrdered By: Tye Gracia on 09-22-2023 Neutrophils (Bld) [#/Vol] 4.1 10*3/uL Normal 1.8-7.7 [facility] Comment on above: Performed By: #### A KACEY, CUU #### [address] No Panel InformationOrdered By: Tye Gracia on 09-22-2023 Estimated GFR (CKD-EPI) > 60.0 mL/Min [facility] Creatinine Clearance (Chem 65.28 [facility] Nucleated erythrocytes [Pres ence] in Blood by Automated countOrdered By: Tye Gracia on 09-22-2023 Nucleated RBC Auto Ql (Bld) 0.1 /100{WBC} 0-0.5 [facility] Platelet mean volume [Entiti c volume] in Blood by Automated countOrdered By: Tye Gracia on 09-22-2023 Platelet mean volume (Bld) [Entitic vol] 7.8 fL Normal 6.3-10.7 [facility] Comment on above: Performed By: #### A KACEY, CUU #### [facility] [address] [place] [address] [place] Platelets [#/volume] in Bloo d by Automated countOrdered By: Tye Gracia on 09-22-2023 Platelets (Bld) [#/Vol] 247 10*3/uL Normal 150-450 [facility] Comment on above: Performed By: #### A KACEY, CUU #### [facility] [address] [place] [address] [place] Potassium [Moles/volume] in Serum or PlasmaOrdered By: Tye Gracia on 09-22-2023 Potassium [Moles/Vol] 4.0 mmol/L Normal 3.5-5.1 [facility] Comment on above: Performed By: #### A KACEY, CUU #### [facility] [address] [place] [address] [place] RAD - MISCon 09-22-2023 RAD - MISC [id number] Normal [facility] Serum or plasma anion gap de terminationOrdered By: Tye Gracia on 09-22-2023 Anion gap [Moles/Vol] 10.8 mmol/L Normal 6.0-15.0 [facility] Comment on above: Performed By: #### A KACEY, CUU #### [facility] [address] [place] [address] [place] Sodium [Moles/volume] in Ser um or PlasmaOrdered By: Tye Gracia on 09-22-2023 Sodium [Moles/Vol] 141 mmol/L Normal 136-145 [facility] Comment on above: Performed By: #### A DDONUAPLUS, CUU #### [facility] [address] Urea nitrogen [Mass/volume] in Serum or PlasmaOrdered By: Tye Samia on 09-22-2023 Urea nitrogen [Mass/Vol] 26 mg/dL High 7-25 [facility] Comment on above: Performed By: #### A DDONUAPLUS, CUU #### [facility] [address] abdomen pelvis wo conon 0 09-21-2023 CT abdomen pelvis wo con [facility] Main [place] [address] [place] [address] CT Scan Report Signed Patient: Tiffanie Petersen MR#: [id number] 30 : 1970 Acct:[id number] Age/Sex: 53 / F ADM Date: 09/21/23 Loc: Room: 4Y9486-0 Type: ADM IN Attending Dr: Ramon Isaac MD Copies to: DO Ramon Rivera MD Ordering Provider: Everardo Edwards DO Date of Service: 09/21/23 CT/CT abdomen pelvis wo con: R side kidney stone CT ABDOMEN AND PELVIS WITHOUT CONTRAST COMPARISON: 03/29/2023 CLINICAL DATA: Right flank pain with nausea. History of kidney stones. Spiral images were obtained through the abdomen and pelvis without contrast. This CT exam was performed using one or more following dose reduction techniques: Automated exposure control, adjustment of the mA and/or kV according to patient size, or use of iterative reconstruction technique. Limited cuts through the lung bases still show a tiny pericardial effusion as well as scarring and/or atelectasis. Assessment the intra-abdominal organs is slightly limited by the absence of contrast. There is fatty infiltration of the liver with focal sparing near the gallbladder fossa. The gallbladder is not well-distended and no obvious calcified gallstones are noted. The spleen, pancreas and adrenal glands show no acute findings. There is right perinephric fibrofatty stranding. There are tiny stones at the lower pole of the right kidney. There are larger stones on the left measuring up to approximately a centimeter in size. There is no left hydronephrosis, hydroureter or ureteral stones. On the right, there is severe right hydronephrosis and hydroureter secondary to a mid to distal ureteral stone measuring 7 mm in size. There is mild atherosclerotic plaque involving the aorta and iliac arteries. There are small retrocrural, retroperitoneal and mesenteric lymph nodes. No ascites is identified. The small bowel loops at the left upper quadrant are mildly distended. No point of obstruction is identified. The remaining small bowel loops are normal caliber. There is stool within the right colon. The left colon is not as well distended with some segments of apparent wall thickening. Minor degenerative changes are seen at the spine. Images through the pelvis show normal caliber small bowel loops. No appendiceal inflammation is seen. There is minimal distal colonic stool. No diverticular disease is noted. The uterus is surgically absent. No urinary bladder abnormalities are seen. There is no ascites. There are benign inguinal lymph nodes with fatty fay. CT/CT abdomen pelvis wo con IMPRESSION: CONTINUED TINY PERICARDIAL EFFUSION. FATTY LIVER WITH FOCAL SPARING. BILATERAL NEPHROLITHIASIS. SEVERE RIGHT HYDRONEPHROSIS SECONDARY TO A MID TO DISTAL URETERAL STONE. NONSPECIFIC, MILDLY DISTENDED LEFT UPPER QUADRANT SMALL BOWEL. Impression dictated by: Maritza Peter M.D.09/21/2023 9:25 AM Dictation Location: [place] [address] Transcribed By: [facility] 09/21/23924 Dictated By: Maritza Peter MD 09/21/23 0915 Signed By: 09/21/23924 Normal [facility] Dipstick and Microscopicon 0 09-21-2023 Appearance (U) Clear Normal Clear [facility] Comment on above: Order Comment: Name Collection Type:: Clean-Voided Midstream Performed By: #### A ROXANE ERAZO #### [facility] [address] Bacteria,Urine None Seen Normal None Seen [facility] Comment on above: Order Comment: Name Collection Type:: Clean-Voided Midstream Performed By: #### A NANCY ERAZOU #### [place] [address] [place] Bilirubin,Urine Negative Normal Negative [facility] Comment on above: Order Comment: Name Collection Type:: Clean-Voided Midstream Performed By: #### A DDONUAPLUS, CUU #### [address] Color (U) Yellow Normal Yellow [facility] Comment on above: Order Comment: Name Collection Type:: Clean-Voided Midstream Performed By: #### A DDONUAPLUS, CUU #### [place] [address] [place] Glucose Ql (U) Normal Normal Normal [facility] Comment on above: Order Comment: Name Collection Type:: Clean-Voided Midstream Performed By: #### A DDONUAPLUS, CUU #### [place] [address] [place] Hyaline Casts,Urine 0-8 Normal 0-8 [facility] Comment on above: Order Comment: Name Collection Type:: Clean-Voided Midstream Result Comment: PERF ORMED BY: [place] [address] PATHOLOGIST REACH TRUCK OPERATOR NICHOLAS FLETCHER M.D. Performed By: #### A DDONUAPLUS, CUU #### [address] Ketones Ql (U) Negative Normal Negative [facility] Comment on above: Order Comment: Name Collection Type:: Clean-Voided Midstream Performed By: #### A DDONUAPLUS, CUU #### [place] [address] [place] Leukocyte esterase Test strip Ql (U) Negative Normal Negative [facility] Comment on above: Order Comment: Name Collection Type:: Clean-Voided Midstream Performed By: #### A DDONUAPLUS, CUU #### [place] [address] [place] Nitrite,Urine Negative Normal Negative [facility] Comment on above: Order Comment: Name Collection Type:: Clean-Voided Midstream Performed By: #### A DDONUAPLUS, CUU #### [address] Occult Blood,Urine 3+ High Negative [facility] Comment on above: Order Comment: Name Collection Type:: Clean-Voided Midstream Result Comment: PERF ORMED BY: [place] [address] PATHOLOGIST REACH TRUCK OPERATOR NICHOLAS FLETCHER M.D. Performed By: #### A DDONUAPLUS, CUU #### [address] pH (U) 7.0 [pH] Normal 5.0-9.0 [facility] Comment on above: Order Comment: Name Collection Type:: Clean-Voided Midstream Performed By: #### A DDONUAPLUS, CUU #### [address] Protein,Urine Trace High Negative [facility] Comment on above: Order Comment: Name Collection Type:: Clean-Voided Midstream Performed By: #### A DDONUAPLUS, CUU #### [address] RBC,Urine 50-100 High 0-4 [facility] Comment on above: Order Comment: Name Collection Type:: Clean-Voided Midstream Performed By: #### A DDONUAPLUS, CUU #### [address] Specificy [place],Urine 1.015 Normal 1.001-1.03 0 [facility] Comment on above: Order Comment: Name Collection Type:: Clean-Voided Midstream Performed By: #### A DDONUAPLUS, CUU #### [address] Squamous Epithelial Cell,Urine None Seen Normal 0-2 [facility] Comment on above: Order Comment: Name Collection Type:: Clean-Voided Midstream Performed By: #### A DDONUAPLUS, CUU #### [address] [place] [address] [place] Urobilinogen,Urine Normal Normal Normal [facility] Comment on above: Order Comment: Name Collection Type:: Clean-Voided Midstream Performed By: #### A DDONUAPLUS, CUU #### [facility] [address] [place] [address] [place] WBC LM.HPF (Urine sed) [#/Area] 0 /[HPF] Normal 0-4 [facility] Comment on above: Order Comment: Name Collection Type:: Clean-Voided Midstream Performed By: #### A DDONUAPLUS, CUU #### [facility] [address] [place] [address] ECG 12 lead ECGon 09-21-2023 ECG 12 [place] [address] Electrocardiograph Report Signed Patient: Tiffanie Petersen MR#: [id number] 30 : 1970 Acct:[id number] Age/Sex: 53 / F ADM Date: 09/21/23 Loc: Room: [address] [place] [address] Type: ADM IN Attending Dr: Ramon Isaac MD Ordering Provider: GAMAL ZULUAGA DO Date of Service: 09/21/23 ECG/ECG 12 lead ECG: pre-op Copies to: Test Reason : Blood Pressure : / mmHG Vent. Rate : 086 BPM Atrial Rate : 086 BPM P-R Int : 182 ms QRS Dur : 082 ms QT Int : 392 ms P-R-T Axes : 047 056 054 degrees QTc Int : 469 ms Normal sinus rhythm Normal ECG When compared with ECG of 08-MAR-2023 12:59, QT has lengthened Confirmed by Jorge Bingham ([id number]) on 09/21/2023 1:50:05 PM Referred By: Electronically Signed By:Jorge Bingham Transcribed By: MUS Signed By Jorge Bingham MD 09/21/23 1350 Normal [facility] [place] urethrocystogram retroon 09-21-2023 [place] urethrocystogram retro [facility] [address] Fluoroscopy Report Signed Patient: Tiffanie Petersen MR#: [id number] 30 : 1970 Acct:[id number] Age/Sex: 53 / F ADM Date: 09/21/23 Loc: 4N Room: 4U9810-0 Type: ADM IN Attending Dr: Ramon Isaac MD Copies to: MD Ramon Gordon MD Ordering Provider: Adonay Lugo MD Date of Service: 09/21/23 FL/FL urethrocystogram retro: RETROGRADE Intraoperative study. Reason for exam: Right-sided stent Findings: 9 images were obtained intraoperatively. Cumulative Air Kerma in mGy: 3 mGy FL/FL urethrocystogram retro Impression: Intraoperative study. Impression dictated by: Lázaro Murry Jr., D.OEthan09/21/2023 7:30 PM Dictation Location: [place] [address] Transcribed By: [facility] 09/21/231929 Dictated By: Lázaro Murry Jr, DO 09/21/231929 Signed By: 09/21/231929 Normal [facility] Automated erythrocytes count in urine sediment (number/area)Ordered By: PROVIDER TEMP on 09-20-2023 RBC Auto (Urine sed) [#/Area] 50-100 [HPF] 0-4 [facility] Automated leukocytes count i n urine sediment (number/area)Ordered By: PROVIDER TEMP on 09-20-2023 WBC Auto (Urine sed) [#/Area] 0-1 [HPF] 0-4 [facility] Basic Metabolic Panelon 09-05 Anion gap [Moles/Vol] 9.6 mmol/L Normal 6.0-15.0 [facility] Comment on above: Performed By: #### B MP, CBC ####[facility] [id number] Calcium [Mass/Vol] 9.6 mg/dL Normal 8.6-10.3 [facility] Comment on above: Performed By: #### B MP, CBC ####[facility] Jfc[address] Chloride [Moles/Vol] 106 mmol/L Normal 98-107 [facility] Comment on above: Performed By: #### B MP, CBC ####[address] CO2 [Moles/Vol] 26.1 mmol/L Normal 21.0-31.0 [facility] Comment on above: Performed By: #### B MP, CBC ####[address] Creatinine [Mass/Vol] 0.99 mg/dL Normal 0.60-1.20 [facility] Comment on above: Performed By: #### B MP, CBC ####[address] Creatinine Clr Calc Pharmacy 64.32 Normal [facility] Comment on above: Result Comment: PERF ORMED BY: [place] [address] PATHOLOGIST REACH TRUCK OPERATOR NICHOLAS FLETCHER M.D. Performed By: #### B MP, CBC ####[address] GFR/1.73 sq M.predicted MDRD (S/P/Bld) [Vol rate/Area] mL/min/{1.73_m2} Normal [facility] Comment on above: Performed By: #### B MP, CBC ####[address] Glucose [Mass/Vol] 134 mg/dL High 70-100 [facility] Comment on above: Result Comment: [place] Glucose Reference Range is dependent on time and content of last meal. Glucose of more than 200 mg/dL in a nonstressed, ambulatory subject supports the diagnosis of Diabetes Mellitus. ADA recommended reference range Performed By: #### B MP, CBC ####[address] Potassium [Moles/Vol] 3.7 mmol/L Normal 3.5-5.1 [facility] Comment on above: Performed By: #### B MP, CBC ####[facility] [id number] [place] [id number] [facility] Sodium [Moles/Vol] 138 mmol/L Normal 136-145 [facility] Comment on above: Performed By: #### B MP, CBC ####[facility] [id number] [place] [id number] [facility] Urea nitrogen [Mass/Vol] 25 mg/dL Normal 7-25 [facility] Comment on above: Performed By: #### B MP, CBC ####[facility] [id number] [place] [id number] [facility] Basophils Auto (Bld) [#/Vol] Ordered By: PROVIDER TEMP on 09-20-2023 Basophils (Bld) [#/Vol] 0.0 10*3/uL 0.0-0.2 [facility] Basophils/100 WBC Auto (Bld) Ordered By: PROVIDER TEMP on 09-20-2023 Basophils/100 WBC (Bld) 0.3 % . [facility] Bilirubin Test strip Ql (U)O rdered By: PROVIDER TEMP on 09-20-2023 Bilirubin Ql (U) Negative Negative [facility] Calcium [Mass/volume] in Ser um or PlasmaOrdered By: PROVIDER TEMP on 09-20-2023 Calcium [Mass/Vol] 9.6 mg/dL 8.6-10.3 [facility] Carbon dioxide, total [Moles /volume] in Serum or PlasmaOrdered By: PROVIDER TEMP on 09-20-2023 CO2 [Moles/Vol] 26.1 mmol/L 21.0-31.0 [facility] Chloride [Moles/volume] in S mateo or PlasmaOrdered By: PROVIDER TEMP on 09-20-2023 Chloride [Moles/Vol] 106 mmol/L 98-107 [facility] Color Auto (U)Ordered By: [place] OVIDER TEMP on 09-20-2023 Color (U) Yellow Yellow [facility] Complete Blood Count Auto Di ffon 09-20-2023 Basophils (Bld) [#/Vol] 0.0 10*3/uL Normal 0.0-0.2 [facility] Comment on above: Result Comment: PERF ORMED BY: [facility] [address] [address] PATHOLOGIST REACH TRUCK OPERATOR NICHOLAS FLETCHER M.D. Performed By: #### B MP, CBC ####[address] Basophils/100 WBC (Bld) 0.3 % Normal . [facility] Comment on above: Performed By: #### B MP, CBC ####[address] Eosinophils (Bld) [#/Vol] 0.1 10*3/uL Normal 0.0-0.45 [facility] Comment on above: Performed By: #### B MP, CBC ####[address] Eosinophils/100 WBC (Bld) 1.2 % Normal . [facility] Comment on above: Performed By: #### B MP, CBC ####[address] Erythrocyte distribution width (RBC) [Ratio] 13.8 % Normal 11.9-15.3 [facility] Comment on above: Performed By: #### B MP, CBC ####[address] Hematocrit (Bld) [Volume fraction] 37.2 % Normal 34.0-46.4 [facility] Comment on above: Performed By: #### B MP, CBC ####[address] Hemoglobin (Bld) [Mass/Vol] 12.5 g/dL Normal 11.8-15.4 [facility] Comment on above: Performed By: #### B MP, CBC ####[address] Lymphocytes (Bld) [#/Vol] 1.6 10*3/uL Normal 1.00-4.8 [facility] Comment on above: Performed By: #### B MP, CBC ####[address] Lymphocytes/100 WBC (Bld) 20.7 % Normal . [facility] Comment on above: Performed By: #### B MP, CBC ####[address] MCH (RBC) [Entitic mass] 31.4 pg Normal 24.7-34.3 [facility] Comment on above: Performed By: #### B MP, CBC ####[address] MCV (RBC) [Entitic vol] 93.7 fL Normal 80-100 [facility] Comment on above: Performed By: #### B MP, CBC ####[address] Mean Corpuscular HGB Conc 33.6 g/dL Normal 32.0-35.0 [facility] Comment on above: Performed By: #### B MP, CBC ####[address] Monocytes (Bld) [#/Vol] 0.8 10*3/uL Normal 0.0-0.8 [facility] Comment on above: Performed By: #### B MP, CBC ####[address] Monocytes/100 WBC (Bld) 16.80 % Normal 0.00-20.00 [facility] Comment on above: Performed By: #### B MP, CBC ####[address] Monocytes/100 WBC (Bld) 10.1 % Normal . [facility] Comment on above: Performed By: #### B MP, CBC ####[address] Neutrophils (Bld) [#/Vol] 5.2 10*3/uL Normal 1.8-7.7 [facility] Comment on above: Performed By: #### B MP, CBC ####[address] Neutrophils/100 WBC (Bld) 67.7 % Normal . [facility] Comment on above: Performed By: #### B MP, CBC ####[address] NRBC% 0.0 /100{WBC} Normal 0-0.5 [facility] Comment on above: Performed By: #### B MP, CBC ####[address] Platelet mean volume (Bld) [Entitic vol] 7.4 fL Normal 6.3-10.7 [facility] Comment on above: Performed By: #### B MP, CBC ####[address] Platelets (Bld) [#/Vol] 297 10*3/uL Normal 150-450 [facility] Comment on above: Performed By: #### B MP, CBC ####[address] RBC (Bld) [#/Vol] 3.97 10*6/uL Normal 3.60-5.00 [facility] Comment on above: Performed By: #### B MP, CBC ####[address] WBC (Bld) [#/Vol] 7.6 10*3/uL Normal 3.8-11.6 [facility] Comment on above: Performed By: #### B MP, CBC ####[address] Creatinine [Mass/volume] in Serum or PlasmaOrdered By: PROVIDER TEMP on 09-20-2023 Creatinine [Mass/Vol] 0.99 mg/dL 0.60-1.20 [facility] ECG 12-Leadon 09-20-2023 ECG 12-Lead [id number] Normal [facility] Eosinophils Auto (Bld) [#/Vo l]Ordered By: PROVIDER TEMP on 09-20-2023 Eosinophils (Bld) [#/Vol] 0.1 10*3/uL 0.0-0.45 [facility] Eosinophils/100 WBC Auto (Bl d)Ordered By: PROVIDER TEMP on 09-20-2023 Eosinophils/100 WBC (Bld) 1.2 % . [facility] Erythrocyte distribution wid th Auto (RBC) [Ratio]Ordered By: PROVIDER TEMP on 09-20-2023 Erythrocyte distribution width (RBC) [Ratio] 13.8 % 11.9-15.3 [facility] Glucose [Mass/volume] in Ser um or PlasmaOrdered By: PROVIDER TEMP on 09-20-2023 Glucose [Mass/Vol] 134 mg/dL 70-100 [facility] Comment on above: ADA recommended refe rence rangeRandom Glucose Reference Range is dependent on time and content of last meal. Glucose of more than 200 mg/dL in a nonstressed, ambulatory subject supports the diagnosis of Diabetes Mellitus. Hematocrit Auto (Bld) [Volum e fraction]Ordered By: PROVIDER TEMP on 09-20-2023 Hematocrit (Bld) [Volume fraction] 37.2 % 34.0-46.4 [facility] Hemoglobin [Mass/volume] in BloodOrdered By: PROVIDER TEMP on 09-20-2023 Hemoglobin (Bld) [Mass/Vol] 12.5 g/dL 11.8-15.4 [facility] Ketones Auto test strip (U) [Mass/Vol]Ordered By: PROVIDER TEMP on 09-20-2023 Ketones (U) [Mass/Vol] Negative Negative [facility] Lab Reportson 09-20-2023 Lab Reports [id number] Normal [facility] Lab Reports [id number]#[id number] Normal [facility] Laboratory - UrinalysisOrder ed By: PROVIDER TEMP on 09-20-2023 Hyaline casts LM Ql (Urine sed) 0-8 [LPF] 0-8 [facility] Leukocytes [#/volume] correc janet for nucleated erythrocytes in Blood by Automated counOrdered By: PROVIDER TEMP on 09-20-2023 WBC corrected for nucl RBC Auto (Bld) [#/Vol] 7.6 10*3/uL 3.8-11.6 [facility] Lymphocytes Auto (Bld) [#/Vo l]Ordered By: PROVIDER TEMP on 09-20-2023 Lymphocytes (Bld) [#/Vol] 1.6 10*3/uL 1.00-4.8 [facility] Lymphocytes/100 WBC Auto (Bl d)Ordered By: PROVIDER TEMP on 09-20-2023 Lymphocytes/100 WBC (Bld) 20.7 % . [facility] MCH Auto (RBC) [Entitic mass ]Ordered By: PROVIDER TEMP on 09-20-2023 MCH (RBC) [Entitic mass] 31.4 pg 24.7-34.3 [facility] MCHC Auto (RBC) [Mass/Vol]Or dered By: PROVIDER TEMP on 09-20-2023 MCHC (RBC) [Mass/Vol] 33.6 g/dL 32.0-35.0 [facility] MCV Auto (RBC) [Entitic vol] Ordered By: PROVIDER TEMP on 09-20-2023 MCV (RBC) [Entitic vol] 93.7 fL 80-100 [facility] Monocyte distribution width [Entitic volume] in Blood by AutomatedOrdered By: PROVIDER TEMP on 09-20-2023 Monocyte distribution width Auto (Bld) [Entitic vol] 16.80 % 0.00-20.00 [facility] Monocytes Auto (Bld) [#/Vol] Ordered By: PROVIDER TEMP on 09-20-2023 Monocytes (Bld) [#/Vol] 0.8 10*3/uL 0.0-0.8 [facility] Monocytes/100 WBC Auto (Bld) Ordered By: PROVIDER TEMP on 09-20-2023 Monocytes/100 WBC (Bld) 10.1 % . [facility] Neutrophils Auto (Bld) [#/Vo l]Ordered By: PROVIDER TEMP on 09-20-2023 Neutrophils (Bld) [#/Vol] 5.2 10*3/uL 1.8-7.7 [facility] Neutrophils/100 WBC Auto (Bl d)Ordered By: PROVIDER TEMP on 09-20-2023 Neutrophils/100 WBC (Bld) 67.7 % . [facility] Nitrite Test strip Ql (U)Ord ered By: PROVIDER TEMP on 09-20-2023 Nitrite Ql (U) Negative Negative [facility] No Panel InformationOrdered By: PROVIDER TEMP on 09-20-2023 Estimated GFR (CKD-EPI) > 60.0 mL/Min [facility] Creatinine Clearance (Chem 64.32 [facility] Nucleated erythrocytes [Pres ence] in Blood by Automated countOrdered By: PROVIDER TEMP on 09-20-2023 Nucleated RBC Auto Ql (Bld) 0.0 /100{WBC} 0-0.5 [facility] Platelet mean volume Auto (B ld) [Entitic vol]Ordered By: PROVIDER TEMP on 09-20-2023 Platelet mean volume (Bld) [Entitic vol] 7.4 fL 6.3-10.7 [facility] Platelets Auto (Bld) [#/Vol] Ordered By: PROVIDER TEMP on 09-20-2023 Platelets (Bld) [#/Vol] 297 10*3/uL 150-450 [facility] Potassium [Moles/volume] in Serum or PlasmaOrdered By: PROVIDER TEMP on 09-20-2023 Potassium [Moles/Vol] 3.7 mmol/L 3.5-5.1 [facility] Protein Auto test strip (U) [Mass/Vol]Ordered By: PROVIDER TEMP on 09-20-2023 Protein (U) [Mass/Vol] Trace mg/dL Negative [facility] RBC Auto (Bld) [#/Vol]Ordere d By: PROVIDER TEMP on 09-20-2023 RBC (Bld) [#/Vol] 3.97 10*6/uL 3.60-5.00 [facility] Serum or plasma anion gap de terminationOrdered By: PROVIDER TEMP on 09-20-2023 Anion gap [Moles/Vol] 9.6 mmol/L 6.0-15.0 [facility] Sodium [Moles/volume] in Ser um or PlasmaOrdered By: PROVIDER TEMP on 09-20-2023 Sodium [Moles/Vol] 138 mmol/L 136-145 [facility] Specific gravity Auto test s trip (U) [Rel density]Ordered By: PROVIDER TEMP on 09-20-2023 Specific gravity (U) [Rel density] 1.015 1.001-1.03 0 [facility] Squamous epithelial cells de tection in urine sediment by light microscopyOrdered By: PROVIDER TEMP on 09-20-2023 Epithelial cells.squamous LM Ql (Urine sed) None seen [HPF] 0-2 [facility] Urea nitrogen [Mass/volume] in Serum or PlasmaOrdered By: PROVIDER TEMP on 09-20-2023 Urea nitrogen [Mass/Vol] 25 mg/dL 7-25 [facility] Urine bacteria detection by automated methodOrdered By: PROVIDER TEMP on 09-20-2023 Bacteria Auto Ql (U) None seen None Seen [facility] Urine clarity by refractomet ry automatedOrdered By: PROVIDER TEM on 09-20-2023 Clarity Refractometry automated (U) Clear Clear [facility] Urine glucose measurement by automated test strip (mass/volume)Ordered By: PROVIDER TEM on 09-20-2023 Glucose Auto test strip (U) [Mass/Vol] Normal mg/dL Normal [facility] Urine hemoglobin detection b y automated test stripOrdered By: PROVIDER TEMP on 09-20-2023 Hemoglobin Auto test strip Ql (U) 3+ Negative [facility] Urine leukocyte esterase det ection by automated test stripOrdered By: PROVIDER TEM on 09-20-2023 Leukocyte esterase Auto test strip Ql (U) Negative Negative [facility] Urobilinogen Auto test strip (U) [Mass/Vol]Ordered By: PROVIDER TEMP on 09-20-2023 Urobilinogen (U) [Mass/Vol] Normal mg/dL Normal [facility] WBC Auto (Bld) [#/Vol]Ordere d By: PROVIDER TEMP on 09-20-2023 WBC (Bld) [#/Vol] 7.6 10*3/uL 3.8-11.6 [facility] pH Auto test strip (U)Ordere d By: PROVIDER TEMP on 09-20-2023 pH (U) 7.0 [pH] 5.0-9.0 [facility] Insurance Correspondenceon 0 09-15-2023 Insurance Correspondence [id number] [facility] Consent for Procedure/Surger yon 09-01-2023 Consent for Procedure/Surgery [id number] Normal [facility] Provider Letteron 08-31-2023 Provider Letter (Inserted Image. Janeth ble to display) August 31, 2023 TIFFANIE TRINITY [address] [place] [address] : 1970 To Whom It May Concern, Please excuse above patient from work. Date of Illness: From: 09/30/23 To: 09/30/23 May Return to Work On: 10/01/23 Restrictions: None Comments: Patient is having a surgical procedure on 09/30/23 and presurgery testing on 09/16/23 @ 2:30pm at [facility]. Sincerely, [facility] [address] [place] [address] phone fax [facility] RAD - MISCon 08-27-2023 RAD - MIS [id number] [facility] Lab Reportson 08-26-2023 Lab Reports [id number] [facility] RAD - MISCon 08-26-2023 RAD - MISC [id number] [facility] Patient Educationon 08-25-19 Patient Education Nephrology Lithotripsy, Care After This sheet gives you information about how to care for yourself after your procedure. Your health care provider may also give you more specific instructions. If you have problems or questions, contact your health care provider. What can I expect after the procedure? After the procedure, it is common to have: ? Some blood in your urine. This should only last for a few days. ? Soreness in your back, sides, or upper abdomen for a few days. ? Blotches or bruises on the area where the shock wave entered the skin. ? Pain, discomfort, or nausea when pieces (fragments) of the kidney stone move through the tube that carries urine from the kidney to the bladder (ureter). Stone fragments may pass soon after the procedure, but they may continue to pass for up to 4?8 weeks. ? If you have severe pain or nausea, contact your health care provider. This may be caused by a large stone that was not broken up, and this may mean that you need more treatment. ? Some pain or discomfort during urination. ? Some pain or discomfort in the lower abdomen or (in men) at the base of the penis. Follow these instructions at home: Medicines ? Take lbsl-opy-vwnlpym and prescription medicines only as told by your health care provider. ? If you were prescribed an antibiotic medicine, take it as told by your health care provider. Do not stop taking the antibiotic even if you start to feel better. ? Ask your health care provider if the medicine prescribed to you requires you to avoid driving or using machinery. Eating and drinking ? Drink enough fluid to keep your urine pale yellow. This helps any remaining pieces of the stone to pass. It can also help prevent new stones from forming. ? Eat plenty of fresh fruits and vegetables. ? Follow instructions from your health care provider about eating or drinking restrictions. You may be instructed to: ? Reduce how much salt (sodium) you eat or drink. Check ingredients and nutrition facts on packaged foods and beverages to see how much sodium they contain. ? Reduce how much meat you eat. ? Eat the recommended amount of calcium for your age and gender. Ask your health care provider how much calcium you should have. General instructions ? Get plenty of rest. ? Return to your normal activities as told by your health care provider. Ask your health care provider what activities are safe for you. Most people can resume normal activities 1?2 days after the procedure. ? If you were given a sedative during the procedure, it can affect you for several hours. Do not drive or operate machinery until your health care provider says that it is safe. ? Your health care provider may direct you to lie in a certain position (postural drainage) and tap firmly (percuss) over your kidney area to help stone fragments pass. Follow instructions as told by your health care provider. ? If directed, strain all urine through the strainer that was provided by your health care provider. ? Keep all fragments for your health care provider to see. Any stones that are found may be sent to a medical lab for examination. The stone may be as small as a grain of salt. ? Keep all follow-up visits as told by your health care provider. This is important. Contact a health care provider if: ? You have a fever or chills. ? You have nausea that is severe or does not go away. ? You have any of these urinary symptoms: ? Blood in your urine for longer than your health care provider told you to expect. ? Urine that smells bad or unusual. ? Feeling a strong urge to urinate after emptying your bladder. ? Pain or burning with urination that does not go away. ? Urinating more often than usual and this does not go away. ? You have a stent and it comes out. Get help right away if: ? You have severe pain in your back, sides, or upper abdomen. ? You have any of these urinary symptoms: ? Severe pain while urinating. ? More blood in your urine or having blood in your urine when you did not before. ? Passing blood clots in your urine. ? Passing only a small amount of urine or being unable to pass any urine at all. ? You have severe nausea that leads to persistent vomiting. ? You faint. Summary ? After this procedure, it is common to have some pain, discomfort, or nausea when pieces (fragments) of the kidney stone move through the tube that carries urine from the kidney to the bladder (ureter). If this pain or nausea is severe, however, you should contact your health care provider. ? Return to your normal activities as told by your health care provider. Ask your health care provider what activities are safe for you. ? Drink enough fluid to keep your urine pale yellow. This helps any remaining pieces of the stone to pass, and it can help prevent new stones from forming. ? If directed, strain your urine and keep all fragments for your health care p (more content not included)... Normal [facility] Urology Office/Clinic Noteon 08-25-2023 Urology Office/Clinic Note Chief Complaint 3 month follow up HPI Staff 3 month follow up w/metabolic work up 06/03/23. KUB 08/23/23 Previous DX: kidney stone, urethral stone w/hydronephrosis Dysuria: denies pain or burning Incomplete bladder emptying: denies Hematuria: denies visible blood, UA shows LARGE Frequency: denies Urgency: denies Nocturia: sometimes maybe once a night Stream: denies hesitancy, denies weak stream Leaking: denies Post void dripping: denies Wearing pads/ Depends: denies Urge incontinence: denies Stress incontinence: denies Incontinence without Sensory Awareness: denies Abdominal pain: denies Flank pain: denies Sexual complaints: denies History of Present Illness Tests reviewed: reviewed UA, metabolic workup, KUB I have reviewed the previous health record information and history for this patient from Dr. Caputo. I have reviewed and verified the staff HPI to be accurate for this encounter. There have been no associated fever, chills, flank pain, or blood in the urine. Denies any urinary infections since last encounter. Review of Systems PHQ Score Initial Depression Screen Score: 0 SCORE ROS - Provider Constitutional: denies weight loss, denies hot flashes. Eyes: denies eye problems. Gastrointestinal: denies nausea, denies vomiting. Cardiovascular: denies chest pain or angina. Integumentary: no dryness Musculoskeletal: denies musculoskeletal symptoms. ENMT: denies otolaryngeal symptoms. Respiratory: no shortness of breath. Heme/Lymph: denies easy bleeding tendency, denies easy bruising tendency. Psychiatric: no confusion, no anxiety. Genitourinary: See HPI. Physical Exam Vitals & Measurements T: 36.2 ?C(Temporal Artery) HR: 94(Peripheral) RR: 18 BP: 140/80 HT: 62 in HT: 158 cm WT: 73 kg WT: 160.6 lb BMI: 29.24 General Appearance: alert , no acute distress, well nourished, well developed female. Genitourinary: bladder nonpalpable, no flank pain. Assessment/Plan 1. Kidney stones (N20.0: Calculus of kidney) S/p R ESWL by Dr. Lugo 03/25/17. S/p cysto, R UD, R URS, laser litho of very large R ureteral stone burden, basket extraction, R ureteral stent change by Dr. Caputo 04/01/23. Stone analysis - 70% CaHPO4, 20% CaOx mono, 10% CaOx di. S/p cysto, R stent change, R URS, laser litho of multiple ureteral stone fragments, basket extraction by Dr. Caputo 05/03/23. Stone analysis - 50% CaHPO4, 40% CaOx mono, 10% Ca Phos Hydroxyl. KUB 08/23/23 - Redemonstration of bilateral stones. L side measuring 6 mm and 8 mm. R side up to 5 mm. Reviewed KUB with pt. Discussed surgical intervention options including ESWL if visible on x-ray (less invasive, lower stone free rate) and ureteroscopy/laser litho with possible stent placement (more invasive, higher stone free rate). Risks and benefits of each discussed. Pt prefers ESWL option. Recommended pt to increase fluid intake to ten to twelve 16 oz bottles a day, preferably water, clear pop, and sugar free lemonade. -Increase fluid intake. -Will schedule L ESWL. The procedure risks, benefits, details and treatment alternatives have been discussed with the patient. These include blood in the urine, infection, bleeding around the kidney, kidney bruising, inability to break up the stone, need for blood transfusion, blockage from stone fragments, and need for additional procedures, among others. Full informed consent has been obtained. Will order General anesthesia. 2. Asymptomatic microscopic hematuria (R31.21: Asymptomatic microscopic hematuria) UA shows large blood, neg for infection. No gross hematuria. 3. Hypocitraturia (R82.991: Hypocitraturia) Metabolic workup 06/02/23 - Volume 850 cc L. U24 citric acid 162 L. Reviewed metabolic workup with pt. -Start Effer-K 25 mEq bid. SEs discussed. Rx sent to [facility] in [place]. -Electrolyte panel in three months after starting Effer-K. Follow-up With When Contact Information YAMILE CLARKE, Basil Claros, URL [facility] [address], [place] [address]- Additional Instructions: schedule L ESWL Patient Education Lithotripsy, Care After Lithotripsy I, Cecilia Ambriz, personally scribed for Dr. Caputo on 08/25/2023 16:36:09. . Documentation recorded by the scribe, Cecilia Ambriz, accurately reflects the services(s) I performed and decisions made by me. Authenticated by Dr. Caputo on 08/25/2023 16:40:05. Problem List/Past Medical History Ongoing Asymptomatic microscopic hematuria BMI 30.0-30.9,adult Depression Diabetes mellitus Emphysema Foreign body in bladder Hyperlipidemia Hypertension Hypocitraturia Kidney stones Smoker Tobacco use Ureteral stone with hydronephrosis Historical HTN (hypertension) Kidney stones Migraine NIDDM Vitamin D deficiency Procedure/Surgical History Cystoscopic removal of ureteric stent (05/18/2023), Cystoscopic insertion of ureteric stent (03/08/2023), Cystoscopic urete (more content not included)... Normal [facility] Comment on above: Result Comment: Elec tronically Signed By: Basil CAPUTO MD\.br\Date and Time Signed: 08/25/23 16:40 EDT\.br\Electronically Co-Signed By: Cecilia Ambriz\.br\Date and Time Co-Signed: 08/25/23 16:36 EDT XR KUBon 08-23-2023 XR KUB [facility] [address] XRay Report Signed Patient: Tiffanie Petersen MR#: [id number] 30 : 1970 Acct:[id number] Age/Sex: 53 / F ADM Date: 08/23/23 Loc: XD Room: Type: [facility] Attending Dr: Basil Caputo MD Copies to: Basil Caputo MD Ordering Provider: Basil Caputo MD Date of Service: 08/23/23 XR/XR KUB: KIDNEY STONES XR KUB 08/23/2023 3:55 PM SIGNS AND SYMPTOMS: Follow-up right renal stone PROTOCOL: Frontal radiographs of the abdomen and pelvis COMPARISON: 04/06/2023 FINDINGS: The bony ring of the pelvis is intact. There are left-sided renal stones measuring 6 and 8 mm respectively. There has been interval removal of the right-sided ureteral stent. Stones and stone fragments in the mid right ureter have resolved there are additional right-sided renal stones measuring up to 5 mm in greatest dimension. Vascular calcifications are present in the pelvis. XR/XR KUB IMPRESSION: Redemonstration of bilateral renal stones, as above. Interval removal of the right ureteral stent with resolution of right ureteral stones. Impression dictated by: Gomez Alarcon M.D.08/23/2023 4:52 PM Dictation Location: [place] [address] Transcribed By: [facility] 08/23/231651 Dictated By: Gomez Alarcon II, MD 08/23/23 1649 Signed By: 08/23/23 165 Normal [facility] Lab Reportson 06-25-2023 Lab Reports [id number] Normal [facility] Lab Reportson 06-04-2023 Lab Reports [id number] Normal [facility] Lab Reports [id number] Normal [facility] Blood Urea Nitrogenon 2022 Urea nitrogen [Mass/Vol] 24 mg/dL Normal 7-25 [facility] Comment on above: Performed By: #### L YTES, CA, PTH, BUN, CREAT, URIC ####[facility] [address] [place] [address] [facility] Calciumon 06-03-2023 Calcium [Mass/Vol] 9.9 mg/dL Normal 8.6-10.3 [facility] Comment on above: Performed By: #### L YTES, CA, PTH, BUN, CREAT, URIC ####[facility] [place] [address] [facility] Calcium [Mass/volume] in Ser um or PlasmaOrdered By: Basil Caputo on 06-03-2023 Calcium [Mass/Vol] 9.9 mg/dL 8.6-10.3 [facility] Carbon dioxide, total [Moles /volume] in Serum or PlasmaOrdered By: Basil Caputo on 06-03-2023 CO2 [Moles/Vol] 30.2 mmol/L 21.0-31.0 [facility] Chloride [Moles/volume] in S mateo or PlasmaOrdered By: Basil Caputo on 06-03-2023 Chloride [Moles/Vol] 107 mmol/L 98-107 [facility] Creatinineon 06-03-2023 Creatinine [Mass/Vol] 0.84 mg/dL Normal 0.60-1.20 [facility] Comment on above: Performed By: #### L YTES, CA, PTH, BUN, CREAT, URIC ####[place] [id number] [facility] GFR/1.73 sq M.predicted MDRD (S/P/Bld) [Vol rate/Area] mL/min/{1.73_m2} Normal [facility] Comment on above: Performed By: #### L YTES, CA, PTH, BUN, CREAT, URIC ####[place] [id number] [facility] Creatinine [Mass/volume] in Serum or PlasmaOrdered By: Basil Caputo on 06-03-2023 Creatinine [Mass/Vol] 0.84 mg/dL 0.60-1.20 [facility] Electrolyteson 06-03-2023 Anion gap [Moles/Vol] 9.1 mmol/L Normal 6.0-15.0 [facility] Comment on above: Performed By: #### L YTES, CA, PTH, BUN, CREAT, URIC ####[place] [id number] [facility] Chloride [Moles/Vol] 107 mmol/L Normal 98-107 [facility] Comment on above: Performed By: #### L YTES, CA, PTH, BUN, CREAT, URIC ####[place] [id number] [facility] CO2 [Moles/Vol] 30.2 mmol/L Normal 21.0-31.0 [facility] Comment on above: Performed By: #### L YTES, CA, PTH, BUN, CREAT, URIC ####[place] [id number] [place] Potassium [Moles/Vol] 4.3 mmol/L Normal 3.5-5.1 [facility] Comment on above: Performed By: #### L YTES, CA, PTH, BUN, CREAT, URIC ####[place] [address] [place] [id number] [facility] Sodium [Moles/Vol] 142 mmol/L Normal 136-145 [facility] Comment on above: Performed By: #### L YTES, CA, PTH, BUN, CREAT, URIC ####[place] [address] [place] [id number] [facility] No Panel InformationOrdered By: Basil Caputo on 06-03-2023 Estimated GFR (CKD-EPI) > 60.0 mL/Min [facility] Creatinine Clearance (Chem N/A [facility] Parathyrin.intact [Mass/volu me] in Serum or PlasmaOrdered By: Basil Caputo on 06-03-2023 Parathyrin.intact [Mass/Vol] 54.5 pg/mL [facility] Parathyroid Hormone Intacton 06-03-2023 Parathyroid Hormone Intact 54.5 pg/mL Normal [facility] Comment on above: Result Comment: PERF ORMED BY: [facility] [address] [place] [id number] PATHOLOGIST REACH TRUCK OPERATOR NICHOLAS FLETCHER M.D. Performed By: #### L YTES, CA, PTH, BUN, CREAT, URIC ####[place] [id number] [facility] Potassium [Moles/volume] in Serum or PlasmaOrdered By: Basil Caputo on 06-03-2023 Potassium [Moles/Vol] 4.3 mmol/L 3.5-5.1 [facility] Serum or plasma anion gap de terminationOrdered By: Basil Caputo on 06-03-2023 Anion gap [Moles/Vol] 9.1 mmol/L 6.0-15.0 [facility] Sodium [Moles/volume] in Ser um or PlasmaOrdered By: Basil Caputo on 06-03-2023 Sodium [Moles/Vol] 142 mmol/L 136-145 [facility] Urate [Mass/volume] in Serum or PlasmaOrdered By: Basil Caputo on 06-03-2023 Urate [Mass/Vol] 5.6 mg/dL 2.3-6.6 [facility] Urea nitrogen [Mass/volume] in Serum or PlasmaOrdered By: Basil Caputo on 06-03-2023 Urea nitrogen [Mass/Vol] 24 mg/dL 7-25 [facility] Uric Acidon 06-03-2023 Urate [Mass/Vol] 5.6 mg/dL Normal 2.3-6.6 [facility] Comment on above: Result Comment: PERF ORMED BY: [facility] [address] [place] [address] PATHOLOGIST REACH TRUCK OPERATOR NICHOLAS FLETCHER M.D. Performed By: #### L YTES, CA, PTH, BUN, CREAT, URIC ####[facility] 24 Hr Urine Uric Acidon 05-08 Uric Acid, 24 Hr Urine 251.6 Normal 173.7 -902. 1 [facility] Comment on above: Order Comment: URINE VOLUME (MILLILTERS): 850 Result Comment: Perf ormed at: - [facility] [id number] Blade Aligner: Hoang Jasso PhD, Phone: [phone] Performed By: #### A DDONUAPLUS, CUU #### [address] Urine Uric Acid 29.6 mg/dL Normal Not Estab. [facility] Comment on above: Order Comment: URINE VOLUME (MILLILTERS): 850 Performed By: #### A DDONUAPLUS, CUU #### [address] 24 hour urine sodium measure ment (moles/time)Ordered By: Basil Caputo on 06-02-2023 Sodium (24H U) [Moles/Time] 148 mmol/24 40-220 [facility] 24 hour urine uric acid sharath urement (mass/time)Ordered By: Basil Caputo on 06-02-2023 Urate (24H U) [Mass/Time] 251.6 mg/24 hr 173.7-902. 1 [facility] Comment on above: Performed at: [facility] [address] [id number] Director: Hoang Jasso PhD, Phone: [phone] CT biopsyOrdered By: Basil Caputo on 06-02-2023 CT biopsy 24 Hours [facility] Calcium [Mass/time] in 24 ho ur UrineOrdered By: Basil Caputo on 06-02-2023 Calcium (24H U) [Mass/Time] 166 mg/24 hr 0-320 [facility] Calcium [Mass/volume] in 24 hour UrineOrdered By: Basil Caputo on 06-02-2023 Calcium (24H U) [Mass/Vol] 19.5 mg/dL Not Estab. [facility] Calcium, 24Hr Urineon 2022 Calcium, Urine 19.5 mg/dL Normal Not Estab. [facility] Comment on above: Order Comment: URINE VOLUME (MILLILTERS): 850 Performed By: #### A DDONUAPLUS, CUU #### [facility] [address] [place] [id number] [place] Calcium, Urine 24 Hr 166 Normal 0-320 [facility] Comment on above: Order Comment: URINE VOLUME (MILLILTERS): 850 Performed By: #### A DDONUAPLUS, CUU #### [facility] [address] [place] [id number] [place] Citric Acid, Urine, 24 Houro n 06-02-2023 Citric Acid, Urine 190 mg/L Normal Undefined [facility] Comment on above: Order Comment: URINE VOLUME (MILLILTERS): 850 Result Comment: This test was developed and its performance characteristics determined by [facility]. It has not been cleared or approved by the Food and Drug Administration. Performed By: #### A DDONUAPLUS, CUU #### [facility] [address] [place] [id number] [place] Citric Acid, Urine, 24HR 162 Low 320-1240 [facility] Comment on above: Order Comment: URINE VOLUME (MILLILTERS): 850 Result Comment: Perf ormed at: - [facility] [address] [id number] Blade Aligner: Snow Angelo MD, Phone: [phone] PERFORMED BY: [place] [id number] PATHOLOGIST REACH TRUCK OPERATOR NICHOLAS FLETCHER M.D. Performed By: #### A DDONUAPLUS, CUU #### [place] [id number] [facility] Kellen Time and Vol 24 hr uron 06-02-2023 Total Volume, Urine 850 Normal [facility] Comment on above: Order Comment: 06/02 0600 06/03/23 06 URINE COLLECTION TIME (HRS): 24 URINE VOLUME (MILLILTERS): 850 Result Comment: PERF ORMED BY: [place] [address] PATHOLOGIST REACH TRUCK OPERATOR NICHOLAS FLETCHER M.D. Performed By: #### A DDLULÚUAPLUS, CUU #### [place] [id number] [facility] Urine Collection Time 24 Normal [facility] Comment on above: Order Comment: 06/02 0600 06/03/23 06 URINE COLLECTION TIME (HRS): 24 URINE VOLUME (MILLILTERS): 850 Performed By: #### A DDONUAPLUS, CUU #### [place] [id number] [facility] Creatinine [Mass/volume] in UrineOrdered By: Basil Caputo on 06-02-2023 Creatinine (U) [Mass/Vol] 87.00 mg/dL 11.00-20.0 0 [facility] Creatinine, 24 Hr Urineon Creatinine 24 Hour, Urine 0.73 g/24_hr Low 0.80-1.89 [facility] Comment on above: Order Comment: Name Collection Type:: Clean-Voided Midstream Performed By: #### A DDONUAPLUS, CUU #### [place] [id number] [facility] Creatinine, Urine 87.00 mg/dL High 11.00-20.0 0 [facility] Comment on above: Order Comment: Name Collection Type:: Clean-Voided Midstream Performed By: #### A KACEY, CUU #### [facility] [address] Magnesium [Mass/time] in 24 hour UrineOrdered By: Basil Caputo on 06-02-2023 Magnesium (24H U) [Mass/Time] 45.9 mg/24 hr 12.0-293.0 [facility] Magnesium [Mass/volume] in U rineOrdered By: Basil Caputo on 06-02-2023 Magnesium (U) [Mass/Vol] 5.4 mg/dL Not Estab. [facility] Magnesium, Urine 24Hron 05-08 Magnesium, 24Hr Urine 45.9 Normal 12.0-293.0 [facility] Comment on above: Order Comment: URINE VOLUME (MILLILTERS): 850 Performed By: #### A KACEY, CUU #### [facility] [address] Magnesium, Urine 5.4 mg/dL Normal Not Estab. [facility] Comment on above: Order Comment: URINE VOLUME (MILLILTERS): 850 Performed By: #### A KACEY, CUU #### [facility] [address] No Panel InformationOrdered By: Basil Caputo on 06-02-2023 Urine Citric Acid 190 mg/L Undefined [facility] Comment on above: This test was develo ped and its performance characteristicsdetermined by [facility]. It has not been cleared orapproved by the Food and Drug Administration. Urine Citric Acid 24 Hour 162 mg/24 hr 320-1240 [facility] Comment on above: Performed at: [address] [id number] Director: Snow Angelo MD, Phone: [phone] Urine Creatinine 24 Hour 0.73 g/24 hr 0.80-1.89 [facility] Oxalate [Mass/time] in 24 ho ur UrineOrdered By: Basil Caputo on 06-02-2023 Oxalate (24H U) [Mass/Time] See comment . [facility] Comment on above: Test not performed Oxalate [Mass/volume] in Uri neOrdered By: Basil Caputo on 06-02-2023 Oxalate (U) [Mass/Vol] See comment . [facility] Comment on above: Test not performed. Unable to perform test due to currentunavailability of reagents or discontinuation of test.Contacted Yuko Moore on 06/24/23. Oxalate, Quant, 24Hr Urineon 06-02-2023 Oxalates, Urine Normal . [facility] Comment on above: Order Comment: URINE VOLUME (MILLILTERS): 850 Result Comment: Test not performed. Unable to perform test due to current unavailability of reagents or discontinuation of test. Contacted Yuko Moore on 06/24/23. Performed By: #### A DDONUAPLUS, CUU #### [facility] [address] [id number] [place] Oxalates, Urine 24Hr Normal . [facility] Comment on above: Order Comment: URINE VOLUME (MILLILTERS): 850 Result Comment: Test not performed Performed By: #### A DDONUAPLUS, CUU #### [facility] [address] [place] [address] [place] Phosphate [Mass/time] in 24 hour UrineOrdered By: Basil Caputo on 06-02-2023 Phosphate (24H U) [Mass/Time] 593 mg/24 hr [id number] [facility] Phosphate [Mass/volume] in U rineOrdered By: Basil Caputo on 06-02-2023 Phosphate (U) [Mass/Vol] 69.8 mg/dL Not Estab. [facility] Phosphorus, 24Hr Urineon Phosphorous, Urine 69.8 mg/dL Normal Not Estab. [facility] Comment on above: Order Comment: URINE VOLUME (MILLILTERS): 850 Performed By: #### A DDONUAPLUS, CUU #### [facility] [address] [place] [address] [place] Phosphorus, Urine 24Hr 593 Normal [phone] [facility] Comment on above: Order Comment: URINE VOLUME (MILLILTERS): 850 Performed By: #### A DDONUAPLUS, CUU #### [facility] [id number] [facility] Sodium [Moles/volume] in Uri neOrdered By: Basil Caputo on 06-02-2023 Sodium (U) [Moles/Vol] 174.0 mmol/L Normal [facility] Comment on above: No reference range e stablished Order Comment: 06/02 0600 06/03/23 0600 URINE COLLECTION TIME (HRS): 24 URINE VOLUME (MILLILTERS): 850 Result Comment: No r eference range established Performed By: #### A DDONUAPLUS, CUU #### [facility] [address] [id number] [place] Sodium, 24 Hr Urineon 2022 Sodium 24 Hour Urine 148 Normal 40-220 [facility] Comment on above: Order Comment: 06/02 0600 06/03/23 0600 URINE COLLECTION TIME (HRS): 24 URINE VOLUME (MILLILTERS): 850 Performed By: #### A JESSICAONFLORESITAPLUS, CUU #### [facility] [id number] [facility] Urine uric acid measurement (mass/volume)Ordered By: Basil Caputo on 06-02-2023 Urate (U) [Mass/Vol] 29.6 mg/dL Not Estab. [facility] Urine volume measurementOrde red By: Basil Caputo on 06-02-2023 Specimen volume (U) 850 ml [facility] Consent for Procedure/Surger yon 05-19-2023 Consent for Procedure/Surgery [id number] Normal [facility] Ambulatory Visit Summaryon 1 07-19-2022 Ambulatory Visit Summary TRINITYTIFFANIE :1970 Visit Date:05/18/2023 Ambulatory Visit Instructions Your Diagnosis Ureteral stone with hydronephrosis Kidney stone Foreign body in bladder Your Care Team Attending Physician - YAMILE CLARKE, Basil Claros Primary Care Physician - Bob CLARKE, Gabriella Crawford This Is Your Medications List Contact prescribing physician if questions or concerns acetaminophen (Tylenol) acetaminophen-hydrocodone ([place] 325 mg-5 mg oral tablet) albuterol-ipratropium (Combivent Respimat 20 mcg-100 mcg) atenolol cyclobenzaprine losartan (Cozaar 50 mg Tab) multivitamin (Multi Vitamins oral tablet) naproxen (Naprosyn 500 mg Tab) omeprazole (Omeprazole 20 mg Cap - DR) promethazine (promethazine 25 mg Tab) Procedures Performed Cystoscopic removal of ureteric stent (05/18/2023), Cystoscopic insertion of ureteric stent (03/08/2023), Cystoscopic ureteric stent procedure (04/02/2017), ESWL of kidney (03/25/2017), Cysto, right RGP, right JJ ureteral stent placement under fluoroscopic guidance. (09/18/2015), Hysterectomy, left knee surgery. Discharge Vitals Heart Rate (Peripheral) 90 Blood Pressure 152/97 Height 158 cm Height 62 in Weight 73 kg Weight 160.6 lb BMI 29.24 What to do next Scheduled Follow-Up Appointments Wednesday 3:30 PM EDT With: YAMILE CLARKE, Basil Claros Where: [facility] Lab Reportson 05-18-2023 Lab Reports [id number] [facility] Patient Educationon 05-18-20 23 Patient Education Nephrology Dietary Guidelines to Help Prevent Kidney Stones Kidney stones are deposits of minerals and salts that form inside your kidneys. Your risk of developing kidney stones may be greater depending on your diet, your lifestyle, the medicines you take, and whether you have certain medical conditions. Most people can lower their risks of developing kidney stones by following these dietary guidelines. Your dietitian may give you more specific instructions depending on your overall health and the type of kidney stones you tend to develop. What are tips for following this plan? Reading food labels ? Choose foods with no salt added or low-salt labels. Limit your salt (sodium) intake to less than 1,500 mg a day. ? Choose foods with calcium for each meal and snack. Try to eat about 300 mg of calcium at each meal. Foods that contain 200?500 mg of calcium a serving include: ? 8 oz (237 mL) of milk, kjganvu-abkyvjtshwlt-zmpwe milk, and calcium-fortifiedfruit juice. Calcium-fortified means that calcium has been added to these drinks. ? 8 oz (237 mL) of kefir, yogurt, and soy yogurt. ? 4 oz (114 g) of tofu. ? 1 oz (28 g) of cheese. ? 1 cup (150 g) of dried figs. ? 1 cup (91 g) of cooked broccoli. ? One 3 oz (85 g) can of sardines or mackerel. Most people need 1,000?1,500 mg of calcium a day. Talk to your dietitian about how much calcium is recommended for you. Shopping ? Buy plenty of fresh fruits and vegetables. Most people do not need to avoid fruits and vegetables, even if these foods contain nutrients that may contribute to kidney stones. ? When shopping for convenience foods, choose: ? Whole pieces of fruit. ? Pre-made salads with dressing on the side. ? Low-fat fruit and yogurt smoothies. ? Avoid buying frozen meals or prepared deli foods. These can be high in sodium. ? Look for foods with live cultures, such as yogurt and kefir. ? Choose high-fiber grains, such as whole-wheat breads, oat bran, and wheat cereals. Cooking ? Do not add salt to food when cooking. Place a salt shaker on the table and allow each person to add their own salt to taste. ? Use vegetable protein, such as beans, textured vegetable protein (TVP), or tofu, instead of meat in pasta, casseroles, and soups. Meal planning ? Eat less salt, if told by your dietitian. To do this: ? Avoid eating processed or pre-made food. ? Avoid eating fast food. ? Eat less animal protein, including cheese, meat, poultry, or fish, if told by your dietitian. To do this: ? Limit the number of times you have meat, poultry, fish, or cheese each week. Eat a diet free of meat at least 2 days a week. ? Eat only one serving each day of meat, poultry, fish, or seafood. ? When you prepare animal proteins, cut pieces into small portion sizes. For most meat and fish, one serving is about the size of the palm of your hand. ? Eat at least five servings of fresh fruits and vegetables each day. To do this: ? Keep fruits and vegetables on hand for snacks. ? Eat one piece of fruit or a handful of berries with breakfast. ? Have a salad and fruit at lunch. ? Have two kinds of vegetables at dinner. ? You may be told to limit foods that are high in a substance called oxalate. These include: ? Spinach (cooked), rhubarb, beets, sweet potatoes, and Bah[place]ian chard. ? Peanuts. ? Potato chips, australian fries, and baked potatoes with skin on. ? Nuts and nut products. ? Chocolate. ? If you regularly take a diuretic medicine, make sure to eat at least 1 or 2 servings of fruits or vegetables that are high in potassium each day. These include: ? Avocado. ? Banana. ? [place], prune, carrot, or tomato juice. ? Baked potato. ? Cabbage. ? Beans and split peas. Lifestyle ? Drink enough fluid to keep your urine pale yellow. This is the most important thing you can do. Spread your fluid intake throughout the day. ? If you drink alcohol: ? Limit how much you have to: ? 0?1 drink a day for women who are not . ? 0?2 drinks a day for men. ? Know how much alcohol is in your drink. In the [place] one drink equals one 12 oz bottle of beer (355 mL), one 5 oz glass of wine (148 mL), or one 1? oz glass of hard liquor (44 mL). ? Lose weight if told by your health care provider. Work with your dietitian to find an eating plan and weight loss strategies that work best for you. General information ? Talk to your health care provider and dietitian about taking daily supplements. Depending on your health and the cause of your kidney stones, you may be told: ? Do not take high-dose supplements of vitamin C (1,000 mg a day or more). ? To take a calcium supplement. ? To take a daily probiotic supplement. ? To take other supplements such as magnesium, fish oil, or vitamin B6. ? Take dhmb-ein-lxuomjo and prescription medicines only as told by your health care provider. These include supplements. What foods sh (more content not included)... Normal [facility] Urology Office/Clinic Noteon 05-18-2023 Urology Office/Clinic Note HPI Staff Cysto Rt stent removal ABX TAKEN History of Present Illness Tests reviewed: none. I have reviewed the previous health record information and history for this patient from . I have reviewed and verified the staff HPI to be accurate for this encounter. There have been no associated fever, chills, flank pain, or blood in the urine. Denies any urinary infections since last encounter. Review of Systems PHQ Score Initial Depression Screen Score: 0 SCORE ROS - Provider Constitutional: denies weight loss, denies hot flashes. Eyes: denies eye problems. Gastrointestinal: denies nausea, denies vomiting. Cardiovascular: denies chest pain or angina. Integumentary: no dryness Musculoskeletal: denies musculoskeletal symptoms. ENMT: denies otolaryngeal symptoms. Respiratory: no shortness of breath. Heme/Lymph: denies easy bleeding tendency, denies easy bruising tendency. Psychiatric: no confusion, no anxiety. Genitourinary: See HPI. Physical Exam Vitals & Measurements HR: 90(Peripheral) BP: 152/97 HT: 62 in HT: 158 cm WT: 73 kg WT: 160.6 lb BMI: 29.24 General Appearance: alert , no acute distress, well nourished, well developed female. Procedure Operative Information Anesthesia Type: Local Procedure: Local Cystoscopy with Stent Removal Complications: None Surgical risks, benefits, details of the procedure have been explained to the patient. Full informed consent has been obtained. Intraoperative Information Prepped: Patient is placed in supine/frogleg position. The patient was prepped with the Betadine solution. Anesthesia: 2% Xylocaine Jelly per urethra. Procedure: Cystoscopy and right stent removal. The flexible Cystoscope was passed in retrograde fashion into the bladder without difficulty. The bladder was viewed in entirety and found to be without tumors or stones. Mild inflammation was seen surrounding the orifice with the stent seen protruding from it. The stent was then grasped and removed in its entirety. Specimens Removed: None Postoperative Information The patient tolerated the procedure well and was subsequently discharged home. Assessment/Plan 1. Ureteral stone with hydronephrosis (N13.2: Hydronephrosis with renal and ureteral calculous obstruction) [facility] ER 03/29/23 - c/o Rt flank pain and hematuria, CT 03/29/23 - Rt JJ stent in place, 2 large ureteral stones involving the mid Rt ureter, largest measuring 13mm associated with hydro and proximal hydroureter, some degree of migration of the calculi since prior study S/p Cysto/Rt Rigid Ureteral Dilation.Rt Ureteroscopy/Laser Litho/Stone Basket of Ureteral Fragments/Rt Ureteral Stent Exchange 04/01/23 S/p Cysto/Rt Stent Exchange/Rt Ureteroscopy/Laser Litho/Stone Basket Extraction 05/03/23 Pt had IO cysto/Rt stent removal today without complications. Follow up in 3 mos w/Metabolic Workup. All questions/concerns were discussed. Pt to call the office if she encounters any issues prior. Pt acknowledges understanding. -Will order Metabolic Workup 2. Kidney stone (N20.0: Calculus of kidney) CT 03/29/23 - Bilateral nephrolithiasis 3. Foreign body in bladder (T19.1XXA: Foreign body in bladder, initial encounter) -See #1 Follow-up With When Contact Information YAMILE CLARKE, TANNER Galloway In 3 months [facility] [address], [place] [address]- Additional Instructions: w/Metabolic Workup Patient Education Dietary Guidelines to Help Prevent Kidney Stones I, Amna Main , personally scribed for Dr. Caputo on 05/18/2023 16:33:39. . Documentation recorded by the scribe, Amna Main, accurately reflects the services(s) I performed and decisions made by me. Problem List/Past Medical History Ongoing BMI 30.0-30.9,adult Depression Diabetes mellitus Emphysema Foreign body in bladder Hyperlipidemia Hypertension Kidney stone Smoker Tobacco use Ureteral stone with hydronephrosis Historical HTN (hypertension) Kidney stones Migraine NIDDM Vitamin D deficiency Procedure/Surgical History Cystoscopic removal of ureteric stent (05/18/2023), Cystoscopic insertion of ureteric stent (03/08/2023), Cystoscopic ureteric stent procedure (04/02/2017), ESWL of kidney (03/25/2017), Cysto, right RGP, right JJ ureteral stent placement under fluoroscopic guidance. (09/18/2015), Hysterectomy, left knee surgery. Medications atenolol, 100 mg, Oral, Bedtime Combivent Respimat 20 mcg-100 mcg, 1 puff(s), Inhalation, QID, PRN Cozaar 50 mg Tab, 50 mg= 1 tab(s), Oral, Daily cyclobenzaprine, 10 mg, Oral, BID, PRN Multi Vitamins oral tablet, 1 tab(s), Oral, Daily Naprosyn 500 mg Tab, 500 mg= 1 tab(s), Oral, BID [place] 325 mg-5 mg oral tablet, 1 tab(s), Oral, q6hr, PRN Omeprazole 20 mg Cap - DR, 20 mg, Oral, Daily promethazine 25 mg Tab, 25 mg= 1 tab(s), Oral, q6hr, PRN Tylenol, 1000 mg, Oral, q6hr, PRN Allergies Vancocin (more content not included)... [facility] Comment on above: Result Comment: Elec tronically Signed By: YAMILE CLARKE, Basil Claros\.br\Date and Time Signed: 05/18/23 16:35 EST\.br\Electronically Co-Signed By: Amna Main\.br\Date and Time Co-Signed: 05/18/23 16:33 EST RAD - MISCon 05-14-2023 [facility] [place] [id number]#1.00TIFF [facility] Insurance Correspondenceon 1 07-14-2022 Insurance Correspondence [id number]#1.00TIFF [facility] Operative Reporton Operative Report [id number]#1.00TIFF [facility] Lab Reportson 05-03-2023 Lab Reports [id number]#1.00TIFF [facility] Consent for Procedure/Surger yon 04-23-2023 Consent for Procedure/Surgery [id number]#1.00TIFF [facility] Lab Reportson 04-13-2023 Lab Reports [id number]#1.00TIFF Normal [facility] RAD - MISCon 04-13-2023 RAD - MISC [id number]#1.00TIFF Normal [facility] XR KUBon 04-06-2023 XR KUB [facility] [address] XRay Report Signed Patient: Tiffanie Petersen MR#: [id number] [birth year] : 1970 Acct:[id number] Age/Sex: 52 / F ADM Date: 04/06/23 Loc: XD Room: Type: [facility] Attending Dr: Basil Caputo MD Copies to: Basil Caputo MD Ordering Provider: Basil Caputo MD Date of Service: 04/06/23 XR/XR KUB: KIDNEY STONES, S/P STENT PLACEMENT KUB: CLINICAL INFORMATION: Status post stent placement 04/01/2023 COMPARISON: CT abdomen and pelvis 03/29/2023 FINDINGS: Right-sided double-J ureteral stent is in place. The positioning of the ureteral calculi are grossly similar to the prior study at the level of the L4 vertebral body. Additional bilateral renal stones are seen. No bowel obstruction or free air. A phlebolith is seen within the pelvis. Osseous structures appear grossly intact. XR/XR KUB IMPRESSION: NO SIGNIFICANT CHANGE IN URETERAL STONE POSITION WHEN COMPARED TO THE PRIOR STUDY. Impression dictated by: Lázaro Murry Jr., D.OEthan04/06/2023 3:33 PM Dictation Location: [facility]14 Transcribed By: [facility] 04/06/231532 Dictated By: Lázaro Murry Jr, DO 04/06/231529 Signed By: 04/06/231532 Lliiya [facility] ED Note-Physicianon 04-02-20 ED Note-Physician [id number]#1.00TIFF Normal [facility] Operative Reporton 10-26-202 3 Operative Report [id number]#1.00TIFF Normal [facility] Activated partial thrombopla stin time (aPTT) in platelet poor plasma by coagulation aOrdered By: Giancarlo Catalan on 03-29-2023 aPTT Coag (PPP) [Time] 27.6 s 25.1-36.5 [facility] Comment on above: A hematocrit value g reater than 55% may lead to inaccurate results in coagulation testing. Patients having hematocrit values >55% require a special collection tube for coagulation studies. Please contact the laboratory at [phone] for redraw instructions. Alanine aminotransferase [En zymatic activity/volume] in Serum or PlasmaOrdered By: Giancarlo Catalan on 03-29-2023 ALT [Catalytic activity/Vol] 32 U/L 7-52 [facility] Albumin [Mass/volume] in Ser um or Plasma by Bromocresol green (BCG) dye binding methoOrdered By: Giancarlo Catalan on 03-29-2023 Albumin BCG dye [Mass/Vol] 4.1 g/dL 3.5-5.7 [facility] Alkaline phosphatase [Enzyma tic activity/volume] in Serum or PlasmaOrdered By: Giancarlo Catalan on 03-29-2023 ALP [Catalytic activity/Vol] 66 U/L 34-104 [facility] Aspartate aminotransferase [ Enzymatic activity/volume] in Serum or PlasmaOrdered By: Giancarlo Catalan on 03-29-2023 AST [Catalytic activity/Vol] 19 U/L 13-39 [facility] Automated epithelial cells c ount in urine sediment (number/area)Ordered By: Giancarlo Catalan on 03-29-2023 Epithelial cells Auto (Urine sed) [#/Area] 0-1 [HPF] 0-2 [facility] Automated erythrocytes count in urine sediment (number/area)Ordered By: Giancarlo Catalan on 03-29-2023 RBC Auto (Urine sed) [#/Area] Innumerable [HPF] 0-4 [facility] Automated leukocytes count i n urine sediment (number/area)Ordered By: Giancarlo Catalan on 03-29-2023 WBC Auto (Urine sed) [#/Area] 5-9 [HPF] 0-4 [facility] Basic Metabolic Panelon 10-2 Anion gap [Moles/Vol] 10.7 mmol/L Normal 6.0-15.0 Th e [facility] Comment on above: Performed By: #### A DDONUAPLUS, CUU #### [facility] [address] [id number] [place] Calcium [Mass/Vol] 9.4 mg/dL Normal 8.6-10.3 [facility] Comment on above: Performed By: #### A DDONUAPLUS, CUU #### [facility] [address] [id number] [place] Chloride [Moles/Vol] 106 mmol/L Normal 98-107 [facility] Comment on above: Performed By: #### A DDONUAPLUS, CUU #### [facility] [address] [id number] [place] CO2 [Moles/Vol] 27.0 mmol/L Normal 21.0-31.0 [facility] Comment on above: Performed By: #### A DDONUAPLUS, CUU #### [facility] [address] [id number] [place] Creatinine [Mass/Vol] 1.07 mg/dL Normal 0.60-1.20 [facility] Comment on above: Performed By: #### A DDONUAPLUS, CUU #### [facility] [address] [id number] [place] Creatinine Clr Calc Pharmacy 58.24 Normal [facility] Comment on above: Performed By: #### A DDONUAPLUS, CUU #### [facility] [address] [id number] [place] GFR/1.73 sq M.predicted MDRD (S/P/Bld) [Vol rate/Area] mL/min/{1.73_m2} Normal [facility] Comment on above: Performed By: #### A DDONUAPLUS, CUU #### [facility] [address] [id number] [place] Glucose [Mass/Vol] 88 mg/dL Normal 70-100 [facility] Comment on above: Result Comment: [facility] Glucose Reference Range is dependent on time and content of last meal. Glucose of more than 200 mg/dL in a nonstressed, ambulatory subject supports the diagnosis of Diabetes Mellitus. ADA recommended reference range Performed By: #### A DDONUAPLUS, CUU #### [facility] [address] Potassium [Moles/Vol] 3.7 mmol/L Normal 3.5-5.1 [facility] Comment on above: Performed By: #### A DDONUAPLUS, CUU #### [facility] [address] Sodium [Moles/Vol] 140 mmol/L Normal 136-145 [facility] Comment on above: Performed By: #### A DDONUAPLUS, CUU #### [facility] [address] Urea nitrogen [Mass/Vol] 28 mg/dL High 7-25 [facility] Comment on above: Performed By: #### A DDONUAPLUS, CUU #### [facility] [address] Basophils Auto (Bld) [#/Vol] Ordered By: Giancarlo Catalan on 03-29-2023 Basophils (Bld) [#/Vol] 0.0 10*3/uL 0.0-0.2 [facility] Basophils/100 WBC Auto (Bld) Ordered By: Giancarlo Catalan on 03-29-2023 Basophils/100 WBC (Bld) 0.5 % . [facility] Bilirubin Test strip Ql (U)O rdered By: Giancarlo Catalan on 03-29-2023 Bilirubin Ql (U) See comment Negative [facility] Comment on above: Unable to obtain acc urate result due to color interference. Bilirubin.direct [Mass/volum e] in Serum or PlasmaOrdered By: Giancarlo Catalan on 03-29-2023 Bilirubin.direct [Mass/Vol] 0.10 mg/dL 0.03-0.18 [facility] Bilirubin.total [Mass/volume ] in Serum or PlasmaOrdered By: Giancarlo Catalan on 10-23-2023 Bilirubin [Mass/Vol] 0.4 mg/dL 0.3-1.0 [facility] CT abdomen pelvis wo conon 1 CT abdomen pelvis wo con [facility] Main [place] [address] [place] [address] [address] Scan Report Signed Patient: Tiffanie Petersen MR#: [id number] [birth year] : 1970 Acct:[id number] Age/Sex: 52 / F ADM Date: 03/29/23 Loc: ER Room: Type: [facility] ER Attending Dr: Copies to: Giancarlo Catalan PA-C Ordering Provider: Giancarlo Catalan PA-C Date of Service: 03/29/23 CT/CT abdomen pelvis wo con: Right flank pain, recent stent placement, hematuri CT ABDOMEN AND PELVIS WITHOUT INTRAVENOUS CONTRAST: CLINICAL HISTORY: Right flank pain with recent stent placement. COMPARISON: CT abdomen and pelvis 03/08/2023 TECHNIQUE: Spiral images were obtained through the abdomen and pelvis without intravenous contrast. This CT exam was performed using one or more following dose reduction techniques: Automated exposure control, adjustment of the mA and/or kV according to patient size, or use of iterative reconstruction technique. FINDINGS: Lung Bases: [Dependent atelectatic changes.] Organs:Suboptimal evaluation due to lack of IV contrast. Hepatic steatosis. Gallbladder spleen pancreas and adrenal glands all appear unremarkable. Nonobstructing calculi are seen within the left kidney, largest measuring 5 mm. No hydronephrosis. No left ureteral calculus. Right-sided double-J ureteral stent is in place. There appears to be two large ureteral calculi seen involving the mid right ureter, largest measuring approximately 13 mm in greatest axial dimension with associated hydronephrosis and proximal hydroureter. Additional smaller nonobstructing calculi are seen involving the right kidney. Abdominal aorta appears normal in caliber.[ GI: Stomach is grossly unremarkable. Small bowel appears nondilated. Appendix is normal. No acute colonic abnormality.[ Pelvis:[Urinary bladder is grossly unremarkable. Uterus has been removed. No adnexal mass.] Peritoneum/Retroperitoneum: No free air, free fluid or lymphadenopathy.[ Abd wall/Bones:Abdominal wall demonstrates no acute findings. Osseous structures demonstrate degenerative change.[ CT/CT abdomen pelvis wo con IMPRESSION: Right-sided double-J ureteral stent is in place. There appears to be two large ureteral calculi seen involving the mid right ureter, largest measuring approximately 13 mm in greatest axial dimension with associated hydronephrosis and proximal hydroureter. There has been some degree of migration of the calculi since the prior study. Bilateral nephrolithiasis. Impression dictated by: Lázaro Murry Jr., D.O.03/29/2023 8:15 PM Dictation Location: [facility] Transcribed By: EVI 03/29/232014 Dictated By: Lázaro Murry Jr, DO 03/29/232006 Signed By: 03/29/232014 Normal [facility] Calcium [Mass/volume] in Ser um or PlasmaOrdered By: Giancarlo Catalan on 03-29-2023 Calcium [Mass/Vol] 9.4 mg/dL 8.6-10.3 [facility] Carbon dioxide, total [Moles /volume] in Serum or PlasmaOrdered By: Giancarlo Catalan on 03-29-2023 CO2 [Moles/Vol] 27.0 mmol/L 21.0-31.0 [facility] Chloride [Moles/volume] in S mateo or PlasmaOrdered By: Giancarlo Catalan on 03-29-2023 Chloride [Moles/Vol] 106 mmol/L 98-107 [facility] Color Auto (U)Ordered By: Merritt Catalan on 03-29-2023 Color (U) Red Yellow [facility] Complete Blood Count Auto Di ffon 03-29-2023 Basophils (Bld) [#/Vol] 0.0 10*3/uL Normal 0.0-0.2 [facility] Comment on above: Result Comment: PERF ORMED BY: [facility] [address] [place] [address] PATHOLOGIST REACH TRUCK OPERATOR NICHOLAS FLETCHER M.D. Performed By: #### P T, BMP, HEPATIC, LIPASE, CBC, PTT ####[facility] [id number] [place] [address] [facility] Basophils/100 WBC (Bld) 0.5 % Normal . [facility] Comment on above: Performed By: #### P T, BMP, HEPATIC, LIPASE, CBC, PTT ####[address] Eosinophils (Bld) [#/Vol] 0.2 10*3/uL Normal 0.0-0.45 [facility] Comment on above: Performed By: #### P T, BMP, HEPATIC, LIPASE, CBC, PTT ####[address] Eosinophils/100 WBC (Bld) 1.8 % Normal . [facility] Comment on above: Performed By: #### P T, BMP, HEPATIC, LIPASE, CBC, PTT ####[address] Erythrocyte distribution width (RBC) [Ratio] 13.4 % Normal 11.9-15.3 [facility] Comment on above: Performed By: #### P T, BMP, HEPATIC, LIPASE, CBC, PTT ####[address] Hematocrit (Bld) [Volume fraction] 34.4 % Normal 34.0-46.4 [facility] Comment on above: Performed By: #### P T, BMP, HEPATIC, LIPASE, CBC, PTT ####[address] Hemoglobin (Bld) [Mass/Vol] 11.9 g/dL Normal 11.8-15.4 [facility] Comment on above: Performed By: #### P T, BMP, HEPATIC, LIPASE, CBC, PTT ####[address] Lymphocytes (Bld) [#/Vol] 2.1 10*3/uL Normal 1.00-4.8 [facility] Comment on above: Performed By: #### P T, BMP, HEPATIC, LIPASE, CBC, PTT ####[address] Lymphocytes/100 WBC (Bld) 24.5 % Normal . [facility] Comment on above: Performed By: #### P T, BMP, HEPATIC, LIPASE, CBC, PTT ####[address] MCH (RBC) [Entitic mass] 32.4 pg Normal 24.7-34.3 [facility] Comment on above: Performed By: #### P T, BMP, HEPATIC, LIPASE, CBC, PTT ####[address] MCV (RBC) [Entitic vol] 93.9 fL Normal 80-100 [facility] Comment on above: Performed By: #### P T, BMP, HEPATIC, LIPASE, CBC, PTT ####[address] Mean Corpuscular HGB Conc 34.5 g/dL Normal 32.0-35.0 [facility] Comment on above: Performed By: #### P T, BMP, HEPATIC, LIPASE, CBC, PTT ####[address] Monocytes (Bld) [#/Vol] 0.8 10*3/uL Normal 0.0-0.8 [facility] Comment on above: Performed By: #### P T, BMP, HEPATIC, LIPASE, CBC, PTT ####[address] Monocytes/100 WBC (Bld) 18.12 % Normal 0.00-20.00 [facility] Comment on above: Performed By: #### P T, BMP, HEPATIC, LIPASE, CBC, PTT ####[address] Monocytes/100 WBC (Bld) 9.0 % Normal . [facility] Comment on above: Performed By: #### P T, BMP, HEPATIC, LIPASE, CBC, PTT ####[address] Neutrophils (Bld) [#/Vol] 5.6 10*3/uL Normal 1.8-7.7 [facility] Comment on above: Performed By: #### P T, BMP, HEPATIC, LIPASE, CBC, PTT ####[address] Neutrophils/100 WBC (Bld) 64.2 % Normal . [facility] Comment on above: Performed By: #### P T, BMP, HEPATIC, LIPASE, CBC, PTT ####[address] NRBC% 0.0 /100{WBC} Normal 0-0.5 [facility] Comment on above: Performed By: #### P T, BMP, HEPATIC, LIPASE, CBC, PTT ####[address] Platelet mean volume (Bld) [Entitic vol] 7.7 fL Normal 6.3-10.7 [facility] Comment on above: Performed By: #### P T, BMP, HEPATIC, LIPASE, CBC, PTT ####[address] Platelets (Bld) [#/Vol] 266 10*3/uL Normal 150-450 [facility] Comment on above: Performed By: #### P T, BMP, HEPATIC, LIPASE, CBC, PTT ####[address] RBC (Bld) [#/Vol] 3.66 10*6/uL Normal 3.60-5.00 [facility] Comment on above: Performed By: #### P T, BMP, HEPATIC, LIPASE, CBC, PTT ####[address] WBC (Bld) [#/Vol] 8.7 10*3/uL Normal 3.8-11.6 [facility] Comment on above: Performed By: #### P T, BMP, HEPATIC, LIPASE, CBC, PTT ####[address] Creatinine [Mass/volume] in Serum or PlasmaOrdered By: Giancarlo Catalan on 03-29-2023 Creatinine [Mass/Vol] 1.07 mg/dL 0.60-1.20 [facility] Dipstick and Microscopicon 1 0-23-2023 Appearance (U) Slightly Cloudy Critically abnormal Clear [facility] Comment on above: Order Comment: Name Collection Type:: Clean-Voided Midstream Performed By: #### A DDONUAPLUS, CUU #### [facility] [address] [place] [address] [place] Bacteria,Urine 1+ High None Seen [facility] Comment on above: Order Comment: Name Collection Type:: Clean-Voided Midstream Performed By: #### A DDONUAPLUS, CUU #### [place] [address] [place] Bilirubin,Urine Normal Negative [facility] Comment on above: Order Comment: Name Collection Type:: Clean-Voided Midstream Result Comment: Unab le to obtain accurate result due to color interference. Performed By: #### A DDONUAPLUS, CUU #### [place] [address] [place] Color (U) Red Critically abnormal Yellow [facility] Comment on above: Order Comment: Name Collection Type:: Clean-Voided Midstream Performed By: #### A DDONUAPLUS, CUU #### [place] [id number] [place] Glucose Ql (U) Normal Normal [facility] Comment on above: Order Comment: Name Collection Type:: Clean-Voided Midstream Result Comment: Unab le to obtain accurate result due to color interference. Performed By: #### A DDONUAPLUS, CUU #### [place] [id number] [place] Ketones Ql (U) Normal Negative [facility] Comment on above: Order Comment: Name Collection Type:: Clean-Voided Midstream Result Comment: Unab le to obtain accurate result due to color interference. Performed By: #### A DDONUAPLUS, CUU #### [place] [id number] [place] Leukocyte esterase Test strip Ql (U) Normal Negative [facility] Comment on above: Order Comment: Name Collection Type:: Clean-Voided Midstream Result Comment: Unab le to obtain accurate result due to color interference. Performed By: #### A DDONUAPLUS, CUU #### [place] [address] [place] Nitrite,Urine Normal Negative [facility] Comment on above: Order Comment: Name Collection Type:: Clean-Voided Midstream Result Comment: Unab le to obtain accurate result due to color interference. Performed By: #### A DDONUAPLUS, CUU #### [place] [address] [place] Occult Blood,Urine Normal Negative [facility] Comment on above: Order Comment: Name Collection Type:: Clean-Voided Midstream Result Comment: Unab le to obtain accurate result due to color interference. Performed By: #### A DDONUAPLUS, CUU #### [address] Othe Crystals,Urine Sulfa Critically abnormal [facility] Comment on above: Order Comment: Name Collection Type:: Clean-Voided Midstream Result Comment: RARE Performed By: #### A DDONUAPLUS, CUU #### [place] [address] [place] pH,Urine Normal 5.0-9.0 [facility] Comment on above: Order Comment: Name Collection Type:: Clean-Voided Midstream Result Comment: Unab le to obtain accurate result due to color interference. Performed By: #### A DDONUAPLUS, CUU #### [place] [address] [place] Protein,Urine Normal Negative [facility] Comment on above: Order Comment: Name Collection Type:: Clean-Voided Midstream Result Comment: Unab le to obtain accurate result due to color interference. Performed By: #### A DDONUAPLUS, CUU #### [place] [address] [place] RBC,Urine Innumerable High 0-4 [facility] Comment on above: Order Comment: Name Collection Type:: Clean-Voided Midstream Performed By: #### A DDONUAPLUS, CUU #### [address] Specificy [place],Urine 1.021 Normal 1.001-1.03 0 [facility] Comment on above: Order Comment: Name Collection Type:: Clean-Voided Midstream Result Comment: Rech ecked by refractometer Performed By: #### A DDONUAPLUS, CUU #### [address] Squamous Epithelial Cell,Urine 0-1 Normal 0-2 [facility] Comment on above: Order Comment: Name Collection Type:: Clean-Voided Midstream Performed By: #### A DDONUAPLUS, CUU #### [address] Urobilinogen,Urine Normal Normal [facility] Comment on above: Order Comment: Name Collection Type:: Clean-Voided Midstream Result Comment: Unab le to obtain accurate result due to color interference. Performed By: #### A DDONUAPLUS, CUU #### [address] WBC,Urine 5-9 High 0-4 [facility] Comment on above: Order Comment: Name Collection Type:: Clean-Voided Midstream Performed By: #### A DDONUAPLUS, CUU #### [address] Yeast,Urine 1+ Critically abnormal None Seen [facility] Comment on above: Order Comment: Name Collection Type:: Clean-Voided Midstream Result Comment: PERF ORMED BY: [place] [address] PATHOLOGIST REACH TRUCK OPERATOR NICHOLAS FLETCHER M.D. Performed By: #### A DDONUAPLUS, CUU #### [place] [address] [place] Eosinophils Auto (Bld) [#/Vo l]Ordered By: Giancarlo Catalan on 03-29-2023 Eosinophils (Bld) [#/Vol] 0.2 10*3/uL 0.0-0.45 [facility] Eosinophils/100 WBC Auto (Bl d)Ordered By: Giancarlo Catalan on 03-29-2023 Eosinophils/100 WBC (Bld) 1.8 % . [facility] Erythrocyte distribution wid th Auto (RBC) [Ratio]Ordered By: Giancarlo Catalan on 03-29-2023 Erythrocyte distribution width (RBC) [Ratio] 13.4 % 11.9-15.3 [facility] Globulin Calc (S) [Mass/Vol] Ordered By: Giancarlo Catalan on 03-29-2023 Globulin (S) [Mass/Vol] 2.9 g/dL [facility] Glucose [Mass/volume] in Ser um or PlasmaOrdered By: Giancarlo Catalan on 03-29-2023 Glucose [Mass/Vol] 88 mg/dL 70-100 [facility] Comment on above: ADA recommended refe rence rangeRandom Glucose Reference Range is dependent on time and content of last meal. Glucose of more than 200 mg/dL in a nonstressed, ambulatory subject supports the diagnosis of Diabetes Mellitus. Hematocrit Auto (Bld) [Volum e fraction]Ordered By: Giancarlo Catalan on 03-29-2023 Hematocrit (Bld) [Volume fraction] 34.4 % 34.0-46.4 [facility] Hemoglobin [Mass/volume] in BloodOrdered By: Giancarlo Catalan on 03-29-2023 Hemoglobin (Bld) [Mass/Vol] 11.9 g/dL 11.8-15.4 [facility] Hepatic Panelon 03-29-2023 Albumin [Mass/Vol] 4.1 g/dL Normal 3.5-5.7 [facility] Comment on above: Performed By: #### P T, BMP, HEPATIC, LIPASE, CBC, PTT ####[facility] Albumin/Globulin [Mass ratio] 1.4 {ratio} Normal [facility] Comment on above: Performed By: #### P T, BMP, HEPATIC, LIPASE, CBC, PTT ####[facility] [place] [id number] [facility] ALP [Catalytic activity/Vol] 66 U/L Normal 34-104 [facility] Comment on above: Performed By: #### P T, BMP, HEPATIC, LIPASE, CBC, PTT ####[place] [address] ALT [Catalytic activity/Vol] 32 U/L Normal 7-52 [facility] Comment on above: Performed By: #### P T, BMP, HEPATIC, LIPASE, CBC, PTT ####[address] AST [Catalytic activity/Vol] 19 U/L Normal 13-39 [facility] Comment on above: Performed By: #### P T, BMP, HEPATIC, LIPASE, CBC, PTT ####[address] Bilirubin [Mass/Vol] 0.4 mg/dL Normal 0.3-1.0 [facility] Comment on above: Performed By: #### P T, BMP, HEPATIC, LIPASE, CBC, PTT ####[address] Bilirubin,Indirect 0.3 mg/dL Normal [facility] Comment on above: Performed By: #### P T, BMP, HEPATIC, LIPASE, CBC, PTT ####[address] Bilirubin.indirect [Mass/Vol] 0.10 mg/dL Normal 0.03-0.18 [facility] Comment on above: Performed By: #### P T, BMP, HEPATIC, LIPASE, CBC, PTT ####[address] Globulin (S) [Mass/Vol] 2.9 g/dL Normal [facility] Comment on above: Performed By: #### P T, BMP, HEPATIC, LIPASE, CBC, PTT ####[address] Protein [Mass/Vol] 7.0 g/dL Normal 6.4-8.9 [facility] Comment on above: Performed By: #### P T, BMP, HEPATIC, LIPASE, CBC, PTT ####[place] [id number] [facility] INR in Platelet poor plasma by Coagulation assayOrdered By: Giancarlo Catalan on 03-29-2023 INR Coag (PPP) [Relative time] 1.1 {INR} [facility] Comment on above: INR Therapeutic Rang e A) Pre- and Peroperative OAT started two weeks before surgery. NOT HIP SURGERY: 1.5 - 2.5 HIP SURGERY: 2 - 3B) Primary and secondary prevention of venous THROMBOSIS: 2 - 3C) Active venous thrombosis, pulmonary embolismand prevention of recurrent venous thrombosis: 2 - 3D) Prevention of arterial thromboembolismincluding patients with mechanical heart valves: 3 - 4.5 Ketones Auto test strip (U) [Mass/Vol]Ordered By: Giancarlo Catalan on 03-29-2023 Ketones (U) [Mass/Vol] See comment Negative [facility] Comment on above: Unable to obtain acc urate result due to color interference. Leukocytes [#/volume] correc janet for nucleated erythrocytes in Blood by Automated counOrdered By: Giancarlo Catalan on 03-29-2023 WBC corrected for nucl RBC Auto (Bld) [#/Vol] 8.7 10*3/uL 3.8-11.6 [facility] Lipaseon 03-29-2023 Lipase [Catalytic activity/Vol] 15.0 U/L Normal 11.0-82.0 [facility] Comment on above: Result Comment: PERF ORMED BY: [place] [address] PATHOLOGIST REACH TRUCK OPERATOR NICHOLAS FLETCHER M.D. Performed By: #### A DDONUAKALA, CUU #### [address] Lipase [Enzymatic activity/v olume] in Serum or PlasmaOrdered By: Giancarlo Catalan on 03-29-2023 Lipase [Catalytic activity/Vol] 15.0 U/L 11.0-82.0 [facility] Lymphocytes Auto (Bld) [#/Vo l]Ordered By: Giancarlo Catalan on 03-29-2023 Lymphocytes (Bld) [#/Vol] 2.1 10*3/uL 1.00-4.8 [facility] Lymphocytes/100 WBC Auto (Bl d)Ordered By: Giancarlo Catalan on 03-29-2023 Lymphocytes/100 WBC (Bld) 24.5 % . [facility] MCH Auto (RBC) [Entitic mass ]Ordered By: Giancarlo Catalan on 03-29-2023 MCH (RBC) [Entitic mass] 32.4 pg 24.7-34.3 [facility] MCHC Auto (RBC) [Mass/Vol]Or dered By: Giancarlo Catalan on 03-29-2023 MCHC (RBC) [Mass/Vol] 34.5 g/dL 32.0-35.0 [facility] MCV Auto (RBC) [Entitic vol] Ordered By: Giancarlo Catalan on 03-29-2023 MCV (RBC) [Entitic vol] 93.9 fL 80-100 [facility] Monocyte distribution width [Entitic volume] in Blood by AutomatedOrdered By: Giancarlo Catalan on 03-29-2023 Monocyte distribution width Auto (Bld) [Entitic vol] 18.12 % 0.00-20.00 [facility] Monocytes Auto (Bld) [#/Vol] Ordered By: Giancarlo Catalan on 03-29-2023 Monocytes (Bld) [#/Vol] 0.8 10*3/uL 0.0-0.8 [facility] Monocytes/100 WBC Auto (Bld) Ordered By: Giancarlo Catalan on 03-29-2023 Monocytes/100 WBC (Bld) 9.0 % . [facility] Neutrophils Auto (Bld) [#/Vo l]Ordered By: Giancarlo Catalan on 03-29-2023 Neutrophils (Bld) [#/Vol] 5.6 10*3/uL 1.8-7.7 [facility] Neutrophils/100 WBC Auto (Bl d)Ordered By: Giancarlo Catalan on 03-29-2023 Neutrophils/100 WBC (Bld) 64.2 % . [facility] Nitrite Test strip Ql (U)Ord ered By: Giancarlo Catalan on 03-29-2023 Nitrite Ql (U) See comment Negative [facility] Comment on above: Unable to obtain acc urate result due to color interference. No Panel InformationOrdered By: Giancarlo Catalan on 03-29-2023 Estimated GFR (CKD-EPI) > 60.0 mL/Min [facility] Creatinine Clearance (Chem 58.24 [facility] Nucleated erythrocytes [Pres ence] in Blood by Automated countOrdered By: Giancarlo Catalan on 03-29-2023 Nucleated RBC Auto Ql (Bld) 0.0 /100{WBC} 0-0.5 [facility] Partial Thromboplastin Timeo n 03-29-2023 aPTT Coag (Bld) [Time] 27.6 s Normal 25.1-36.5 Th e [facility] Comment on above: Result Comment: A he matocrit value greater than 55% may lead to inaccurate results in coagulation testing. Patients having hematocrit values >55% require a special collection tube for coagulation studies. Please contact the laboratory at [phone] for redraw instructions. PERFORMED BY: [place] [address] PATHOLOGIST REACH TRUCK OPERATOR NICHOLAS FLETCHER M.D. Performed By: #### A DDJUAN, NANCYU #### [address] Platelet mean volume Auto (B ld) [Entitic vol]Ordered By: Giancarlo Catalan on 03-29-2023 Platelet mean volume (Bld) [Entitic vol] 7.7 fL 6.3-10.7 [facility] Platelets Auto (Bld) [#/Vol] Ordered By: Giancarlo Catalan on 03-29-2023 Platelets (Bld) [#/Vol] 266 10*3/uL 150-450 [facility] Potassium [Moles/volume] in Serum or PlasmaOrdered By: Giancarlo Catalan on 03-29-2023 Potassium [Moles/Vol] 3.7 mmol/L 3.5-5.1 [facility] Protein Auto test strip (U) [Mass/Vol]Ordered By: Giancarlo Catalan on 03-29-2023 Protein (U) [Mass/Vol] See comment Negative [facility] Comment on above: Unable to obtain acc urate result due to color interference. Protein [Mass/volume] in Ser um or PlasmaOrdered By: Giancarlo Catalan on 03-29-2023 Protein [Mass/Vol] 7.0 g/dL 6.4-8.9 [facility] Prothrombin Time INRon 03-29 INR Coag (PPP) [Relative time] 1.1 {INR} Normal [facility] Comment on above: Result Comment: INR Therapeutic Range A) Pre- and Peroperative OAT started two weeks before surgery. NOT HIP SURGERY: 1.5 - 2.5 HIP SURGERY: 2 - 3 B) Primary and secondary prevention of venous THROMBOSIS: 2 - 3 C) Active venous thrombosis, pulmonary embolism and prevention of recurrent venous thrombosis: 2 - 3 D) Prevention of arterial thromboembolism including patients with mechanical heart valves: 3 - 4.5 Performed By: #### A DDONUAPLUS, CUU #### [facility] [address] PT Coag (PPP) [Time] 12.9 s Normal 9.0-12.9 [facility] Comment on above: Result Comment: A he matocrit value greater than 55% may lead to inaccurate results in coagulation testing. Patients having hematocrit values >55% require a special collection tube for coagulation studies. Please contact the laboratory at [phone] for redraw instructions. Performed By: #### A DDONUAKALA, CUU #### [facility] [address] [place] [id number] [facility] Prothrombin time (PT)Ordered By: Giancarlo Catalan on 03-29-2023 PT Coag (PPP) [Time] 12.9 s 9.0-12.9 [facility] Comment on above: A hematocrit value g reater than 55% may lead to inaccurate results in coagulation testing. Patients having hematocrit values >55% require a special collection tube for coagulation studies. Please contact the laboratory at [phone] for redraw instructions. RBC Auto (Bld) [#/Vol]Ordere d By: Giancarlo Catalan on 03-29-2023 RBC (Bld) [#/Vol] 3.66 10*6/uL 3.60-5.00 [facility] Serum or plasma albumin/glob ulin mass ratioOrdered By: Giancarlo Catalan on 03-29-2023 Albumin/Globulin [Mass ratio] 1.4 {ratio} [facility] Serum or plasma anion gap de terminationOrdered By: Giancarlo Catalan on 03-29-2023 Anion gap [Moles/Vol] 10.7 mmol/L 6.0-15.0 [facility] Serum or plasma non-glucuron idated bilirubin measurement (mass/volume)Ordered By: Giancarlo Catalan on 03-29-2023 Bilirubin.indirect [Mass/Vol] 0.3 mg/dL [facility] Sodium [Moles/volume] in Ser um or PlasmaOrdered By: Giancarlo Catalan on 03-29-2023 Sodium [Moles/Vol] 140 mmol/L 136-145 [facility] Specific gravity Auto test s trip (U) [Rel density]Ordered By: Giancarlo Catalan on 03-29-2023 Specific gravity (U) [Rel density] 1.021 1.001-1.03 0 [facility] Comment on above: Rechecked by refract ometer Urea nitrogen [Mass/volume] in Serum or PlasmaOrdered By: Giancarlo Catalan on 03-29-2023 Urea nitrogen [Mass/Vol] 28 mg/dL 7-25 [facility] Urine Cultureon 03-29-2023 Bacteria identified Cx Nom (U) <9,000 colonies/ml mixed bacterial skin contaminants 2 Days PERFORMED BY: [place] [address] PATHOLOGIST REACH TRUCK OPERATOR NICHOLAS FLECTHER M.D. Normal [facility] Comment on above: Performed By: #### A DDJUAN, NANCYU #### [address] Urine bacteria detection by automated methodOrdered By: Giancarlo Catalan on 03-29-2023 Bacteria Auto Ql (U) 1+ None Seen [facility] Urine clarity by refractomet ry automatedOrdered By: Giancarlo Catalan on 03-29-2023 Clarity Refractometry automated (U) Slightly cloudy Clear [facility] Urine culture routineOrdered By: Giancarlo Catalan on 03-29-2023 Bacteria identified Cx Nom (U) 2 Days [facility] Bacteria identified Cx Nom (U) 2 Days [facility] Urine glucose measurement by automated test strip (mass/volume)Ordered By: Giancarlo Catalan on 03-29-2023 Glucose Auto test strip (U) [Mass/Vol] See comment Normal [facility] Comment on above: Unable to obtain acc urate result due to color interference. Urine hemoglobin detection b y automated test stripOrdered By: Giancarlo Catalan on 03-29-2023 Hemoglobin Auto test strip Ql (U) See comment Negative [facility] Comment on above: Unable to obtain acc urate result due to color interference. Urine leukocyte esterase det ection by automated test stripOrdered By: Giancarlo Catalan on 03-29-2023 Leukocyte esterase Auto test strip Ql (U) See comment Negative [facility] Comment on above: Unable to obtain acc urate result due to color interference. Urine sediment crystal ident ification by light microscopyOrdered By: Giancarlo Catalan on 03-29-2023 Crystals LM Nom (Urine sed) Sulfa [HPF] [facility] Comment on above: RARE Urobilinogen Auto test strip (U) [Mass/Vol]Ordered By: Giancarlo Catalan on 03-29-2023 Urobilinogen (U) [Mass/Vol] See comment Normal [facility] Comment on above: Unable to obtain acc urate result due to color interference. WBC Auto (Bld) [#/Vol]Ordere d By: Giancarlo Catalan on 03-29-2023 WBC (Bld) [#/Vol] 8.7 10*3/uL 3.8-11.6 [facility] Yeast detection in urine sed iment by light microscopyOrdered By: Giancarlo Catalan on 03-29-2023 Yeast LM Ql (Urine sed) 1+ [HPF] None Seen [facility] pH Auto test strip (U)Ordere d By: Giancarlo Catalan on 03-29-2023 pH (U) See comment 5.0-9.0 [facility] Comment on above: Unable to obtain acc urate result due to color interference. Insurance Correspondenceon Insurance Correspondence [id number]#[id number] Normal [facility] Lab Reportson 03-15-2023 Lab Reports [id number]#1.00TIFF Normal [facility] Operative Reporton Operative Report [id number]#[id number] Normal [facility] Physician Orderon 03-15-2023 Physician Order [id number]#[id number] Normal [facility] Consultation Noteon 03-09-20 Consultation Note [id number]#[id number]:127 Normal [facility] Insurance Correspondence Off iceon 03-09-2023 Insurance Correspondence Office [id number]#[id number]:127 Normal [facility] Alanine aminotransferase [En zymatic activity/volume] in Serum or PlasmaOrdered By: Basil Boudreaux on 03-08-2023 ALT [Catalytic activity/Vol] 35 U/L 7-52 [facility] Albumin [Mass/volume] in Ser um or Plasma by Bromocresol green (BCG) dye binding methoOrdered By: Basil Boudreaux on 03-08-2023 Albumin BCG dye [Mass/Vol] 4.6 g/dL 3.5-5.7 [facility] Alkaline phosphatase [Enzyma tic activity/volume] in Serum or PlasmaOrdered By: Basil Boudreaux on 03-08-2023 ALP [Catalytic activity/Vol] 82 U/L 34-104 [facility] Aspartate aminotransferase [ Enzymatic activity/volume] in Serum or PlasmaOrdered By: Basil Boudreaux on 03-08-2023 AST [Catalytic activity/Vol] 21 U/L 13-39 [facility] Automated erythrocytes count in urine sediment (number/area)Ordered By: Basil Boudreaux on 03-08-2023 RBC Auto (Urine sed) [#/Area] 10-19 [HPF] 0-4 [facility] Automated leukocytes count i n urine sediment (number/area)Ordered By: Basil Boudreaux on 03-08-2023 WBC Auto (Urine sed) [#/Area] 3-4 [HPF] 0-4 [facility] Basic Metabolic Panelon Anion gap [Moles/Vol] 10.9 mmol/L Normal 6.0-15.0 [facility] Comment on above: Performed By: #### H EPATIC, BMP, CBC, LIPASE #### [facility] [address] [place] [address] [place] Calcium [Mass/Vol] 9.7 mg/dL Normal 8.6-10.3 [facility] Comment on above: Performed By: #### H EPATIC, BMP, CBC, LIPASE #### [facility] [address] [place] [address] [place] Chloride [Moles/Vol] 105 mmol/L Normal 98-107 [facility] Comment on above: Performed By: #### H EPATIC, BMP, CBC, LIPASE #### [facility] [address] CO2 [Moles/Vol] 28.1 mmol/L Normal 21.0-31.0 [facility] Comment on above: Performed By: #### H EPATIC, BMP, CBC, LIPASE #### [facility] [address] [place] [address] [place] Creatinine [Mass/Vol] 1.09 mg/dL Normal 0.60-1.20 [facility] Comment on above: Performed By: #### H EPATIC, BMP, CBC, LIPASE #### [facility] [address] [place] [address] [place] Creatinine Clr Calc Pharmacy 59.36 Normal [facility] Comment on above: Performed By: #### H EPATIC, BMP, CBC, LIPASE #### [facility] [address] [place] [address] [place] GFR/1.73 sq M.predicted MDRD (S/P/Bld) [Vol rate/Area] mL/min/{1.73_m2} Normal [facility] Comment on above: Performed By: #### H EPATIC, BMP, CBC, LIPASE #### [facility] [address] [place] [address] [place] Glucose [Mass/Vol] 91 mg/dL Normal 70-100 [facility] Comment on above: Result Comment: [place] Glucose Reference Range is dependent on time and content of last meal. Glucose of more than 200 mg/dL in a nonstressed, ambulatory subject supports the diagnosis of Diabetes Mellitus. ADA recommended reference range Performed By: #### H EPATIC, BMP, CBC, LIPASE #### [facility] [address] Potassium [Moles/Vol] 4.0 mmol/L Normal 3.5-5.1 [facility] Comment on above: Performed By: #### H EPATIC, BMP, CBC, LIPASE #### [facility] [address] Sodium [Moles/Vol] 140 mmol/L Normal 136-145 [facility] Comment on above: Performed By: #### H EPATIC, BMP, CBC, LIPASE #### [facility] [address] Urea nitrogen [Mass/Vol] 23 mg/dL Normal 7-25 [facility] Comment on above: Performed By: #### H EPATIC, BMP, CBC, LIPASE #### [facility] [address] Basophils Auto (Bld) [#/Vol] Ordered By: Basil Boudreaux on 03-08-2023 Basophils (Bld) [#/Vol] 0.0 10*3/uL 0.0-0.2 [facility] Basophils/100 WBC Auto (Bld) Ordered By: Basil Boudreaux on 03-08-2023 Basophils/100 WBC (Bld) 0.3 % . [facility] Bilirubin Test strip Ql (U)O rdered By: Basil Boudreaux on 03-08-2023 Bilirubin Ql (U) Negative Negative [facility] Bilirubin.direct [Mass/volum e] in Serum or PlasmaOrdered By: Basil Boudreaux on 03-08-2023 Bilirubin.direct [Mass/Vol] 0.00 mg/dL 0.03-0.18 [facility] Comment on above: If the DBIL is less than 0.1, IBIL is not able to becalculated. Bilirubin.total [Mass/volume ] in Serum or PlasmaOrdered By: Basil Boudreaux on 03-08-2023 Bilirubin [Mass/Vol] 0.5 mg/dL 0.3-1.0 [facility] CT abdomen pelvis wo conon 1 CT abdomen pelvis wo con [facility] Main [place] [address] [place] [address] CT Scan Report Signed Patient: Tiffanie Petersen MR#: [id number] 30 : 1970 Acct:[id number] Age/Sex: 52 / F ADM Date: 03/08/23 Loc: ER Room: Type: PRE ER Attending Dr: Copies to: Manny Neff DO Ordering Provider: Manny Neff DO Date of Service: 03/08/23 CT/CT abdomen pelvis wo con: flank pain CT Abdomen and Pelvis withoutcontrast TECHNIQUE: Axial imaging with 2-D reconstruction. . The CT exam was performed using one or more the following dose reduction techniques: Automated exposure control, adjustment of the MA and/or Kv according to patient size, or use of the iterative reconstruction technique. COMPARISON: None History: RIGHT flank pain for 2 days. Nausea. History of kidney stones. LIMITATIONS: None LOWER THORAX small pericardial effusion. The basilar atelectasis. No pleural effusion. LIVER: Hepatic steatosis. Focal fatty sparing near the gallbladder fossa. GALLBLADDER: No gallbladder abnormality identified. BILE DUCTS: No dilatation SPLEEN: Unremarkable PANCREAS: Unremarkable ADRENAL GLANDS: Unremarkable KIDNEYS:Marked RIGHT hydronephrosis. 14 x 13 mm obstructing RIGHT mid renal calculus identified. 2.0 x 1.2 cm proximal RIGHT ureteral stone identified. Bilateral nephrolithiasis measures up to 4 mm. No LEFT obstructive uropathy. AORTA: No abdominal aortic aneurysm identified. RETROPERITONEUM: No significant retroperitoneal abnormalities identified. MESENTERY:Unremarkable SMALL BOWEL: The small bowel loops are nondistended. APPENDIX: The appendix is normal. COLON: Unremarkable URINARY BLADDER: Urinary bladder is unremarkable. REPRODUCTIVE SYSTEM: The uterus is absent. PNEUMOPERITONEUM: None PERITONEAL FLUID:None BONY STRUCTURES: Unremarkable ABDOMINAL WALL: Unremarkable CT/CT abdomen pelvis wo con IMPRESSION: A 14 x 13 mm obstructing RIGHT mid ureteral calculus with marked hydronephrosis. Additional proximal RIGHT ureteral stone measuring up to 2 cm. Bilateral nephrolithiasis measuring up to 4 mm. Impression dictated by: Alejo Cantor M.D.03/08/2023 8:00 AM Dictation Location: [place] [address] Transcribed By: [facility] 03/08/23 0800 Dictated By: Alejo Cantor S DO 03/08/23 0755 Signed By: 03/08/23 0800 Normal [facility] Calcium [Mass/volume] in Ser um or PlasmaOrdered By: Basil Boudreaux on 03-08-2023 Calcium [Mass/Vol] 9.7 mg/dL 8.6-10.3 [facility] Carbon dioxide, total [Moles /volume] in Serum or PlasmaOrdered By: Basil Boudreaux on 03-08-2023 CO2 [Moles/Vol] 28.1 mmol/L 21.0-31.0 [facility] Chloride [Moles/volume] in S mateo or PlasmaOrdered By: Basil Boudreaux on 03-08-2023 Chloride [Moles/Vol] 105 mmol/L 98-107 [facility] Color Auto (U)Ordered By: Jorge A Boudreaux on 03-08-2023 Color (U) Yellow Yellow [facility] Complete Blood Count Auto Di ffon 03-08-2023 Basophils (Bld) [#/Vol] 0.0 10*3/uL Normal 0.0-0.2 [facility] Comment on above: Result Comment: PERF ORMED BY: [place] [address] PATHOLOGIST REACH TRUCK OPERATOR NICHOLAS FLETCHER M.D. Performed By: #### H EPATIC, BMP, CBC, LIPASE #### [facility] [address] [place] [address] [place] Basophils/100 WBC (Bld) 0.3 % Normal . [facility] Comment on above: Performed By: #### H EPATIC, BMP, CBC, LIPASE #### [facility] [address] [place] [address] [place] Eosinophils (Bld) [#/Vol] 0.1 10*3/uL Normal 0.0-0.45 [facility] Comment on above: Performed By: #### H EPATIC, BMP, CBC, LIPASE #### [facility] [address] [place] [address] [place] Eosinophils/100 WBC (Bld) 0.8 % Normal . [facility] Comment on above: Performed By: #### H EPATIC, BMP, CBC, LIPASE #### [address] Erythrocyte distribution width (RBC) [Ratio] 13.3 % Normal 11.9-15.3 [facility] Comment on above: Performed By: #### H EPATIC, BMP, CBC, LIPASE #### [address] Hematocrit (Bld) [Volume fraction] 38.6 % Normal 34.0-46.4 [facility] Comment on above: Performed By: #### H EPATIC, BMP, CBC, LIPASE #### [address] Hemoglobin (Bld) [Mass/Vol] 13.4 g/dL Normal 11.8-15.4 [facility] Comment on above: Performed By: #### H EPATIC, BMP, CBC, LIPASE #### [address] Lymphocytes (Bld) [#/Vol] 1.3 10*3/uL Normal 1.00-4.8 [facility] Comment on above: Performed By: #### H EPATIC, BMP, CBC, LIPASE #### [address] Lymphocytes/100 WBC (Bld) 15.3 % Normal . [facility] Comment on above: Performed By: #### H EPATIC, BMP, CBC, LIPASE #### [address] MCH (RBC) [Entitic mass] 32.4 pg Normal 24.7-34.3 [facility] Comment on above: Performed By: #### H EPATIC, BMP, CBC, LIPASE #### [address] MCV (RBC) [Entitic vol] 93.4 fL Normal 80-100 [facility] Comment on above: Performed By: #### H EPATIC, BMP, CBC, LIPASE #### [address] Mean Corpuscular HGB Conc 34.7 g/dL Normal 32.0-35.0 [facility] Comment on above: Performed By: #### H EPATIC, BMP, CBC, LIPASE #### [address] Monocytes (Bld) [#/Vol] 0.7 10*3/uL Normal 0.0-0.8 [facility] Comment on above: Performed By: #### H EPATIC, BMP, CBC, LIPASE #### [address] Monocytes/100 WBC (Bld) 16.55 % Normal 0.00-20.00 [facility] Comment on above: Performed By: #### H EPATIC, BMP, CBC, LIPASE #### [address] Monocytes/100 WBC (Bld) 8.2 % Normal . [facility] Comment on above: Performed By: #### H EPATIC, BMP, CBC, LIPASE #### [address] Neutrophils (Bld) [#/Vol] 6.4 10*3/uL Normal 1.8-7.7 [facility] Comment on above: Performed By: #### H EPATIC, BMP, CBC, LIPASE #### [address] Neutrophils/100 WBC (Bld) 75.4 % Normal . [facility] Comment on above: Performed By: #### H EPATIC, BMP, CBC, LIPASE #### [address] NRBC% 0.0 /100{WBC} Normal 0-0.5 [facility] Comment on above: Performed By: #### H EPATIC, BMP, CBC, LIPASE #### [address] Platelet mean volume (Bld) [Entitic vol] 8.0 fL Normal 6.3-10.7 [facility] Comment on above: Performed By: #### H EPATIC, BMP, CBC, LIPASE #### [address] Platelets (Bld) [#/Vol] 285 10*3/uL Normal 150-450 [facility] Comment on above: Performed By: #### H EPATIC, BMP, CBC, LIPASE #### [address] RBC (Bld) [#/Vol] 4.13 10*6/uL Normal 3.60-5.00 [facility] Comment on above: Performed By: #### H EPATIC, BMP, CBC, LIPASE #### [address] WBC (Bld) [#/Vol] 8.4 10*3/uL Normal 3.8-11.6 [facility] Comment on above: Performed By: #### H EPATIC, BMP, CBC, LIPASE #### [address] Creatinine [Mass/volume] in Serum or PlasmaOrdered By: Basil Boudreaux on 03-08-2023 Creatinine [Mass/Vol] 1.09 mg/dL 0.60-1.20 [facility] Dipstick and Microscopicon 1 Appearance (U) Clear Normal Clear [facility] Comment on above: Order Comment: Name Collection Type:: Clean-Voided Midstream Performed By: #### A DDONUAPLUS UHCG #### [address] Bacteria,Urine None Seen Normal None Seen [facility] Comment on above: Order Comment: Name Collection Type:: Clean-Voided Midstream Performed By: #### A DDONUAPLUS UHCG #### [address] Bilirubin,Urine Negative Normal Negative [facility] Comment on above: Order Comment: Name Collection Type:: Clean-Voided Midstream Performed By: #### A DDONUAPLUS UHCG #### [place] [id number] [place] Color (U) Yellow Normal Yellow [facility] Comment on above: Order Comment: Name Collection Type:: Clean-Voided Midstream Performed By: #### A DDONUAPLUS, UHCG #### [address] Glucose Ql (U) Normal Normal Normal [facility] Comment on above: Order Comment: Name Collection Type:: Clean-Voided Midstream Performed By: #### A DDONUAPLUS, UHCG #### [place] [address] [place] Hyaline Casts,Urine 0-8 Normal 0-8 [facility] Comment on above: Order Comment: Name Collection Type:: Clean-Voided Midstream Performed By: #### A DDONUAPLUS, UHCG #### [address] Ketones Ql (U) Negative Normal Negative [facility] Comment on above: Order Comment: Name Collection Type:: Clean-Voided Midstream Performed By: #### A DDONUAPLUS, UHCG #### [address] Leukocyte esterase Test strip Ql (U) 1+ High Negative [facility] Comment on above: Order Comment: Name Collection Type:: Clean-Voided Midstream Performed By: #### A DDONUAPLUS, UHCG #### [place] [address] [place] Nitrite,Urine Negative Normal Negative [facility] Comment on above: Order Comment: Name Collection Type:: Clean-Voided Midstream Performed By: #### A DDONUAPLUS, UHCG #### [place] [address] [place] Occult Blood,Urine 2+ High Negative [facility] Comment on above: Order Comment: Name Collection Type:: Clean-Voided Midstream Performed By: #### A DDONUAPLUS, UHCG #### [place] [address] [place] pH (U) 7.5 [pH] Normal 5.0-9.0 [facility] Comment on above: Order Comment: Name Collection Type:: Clean-Voided Midstream Performed By: #### A DDONUAPLUS, UHCG #### [address] Protein,Urine Negative Normal Negative [facility] Comment on above: Order Comment: Name Collection Type:: Clean-Voided Midstream Performed By: #### A DDONUAPLUS, UHCG #### [address] RBC,Urine 10-19 High 0-4 [facility] Comment on above: Order Comment: Name Collection Type:: Clean-Voided Midstream Performed By: #### A DDONUAPLUS, UHCG #### [address] Specificy [place],Urine 1.011 Normal 1.001-1.03 0 [facility] Comment on above: Order Comment: Name Collection Type:: Clean-Voided Midstream Performed By: #### A DDONUAPLUS, UHCG #### [address] Squamous Epithelial Cell,Urine 0-1 Normal 0-2 [facility] Comment on above: Order Comment: Name Collection Type:: Clean-Voided Midstream Performed By: #### A DDONUAPLUS, UHCG #### [address] Urobilinogen,Urine Normal Normal Normal [facility] Comment on above: Order Comment: Name Collection Type:: Clean-Voided Midstream Performed By: #### A DDONUAPLUS, UHCG #### [address] WBC,Urine 3-4 Normal 0-4 [facility] Comment on above: Order Comment: Name Collection Type:: Clean-Voided Midstream Performed By: #### A DDONUAPLUS, UHCG #### [address] ECG 12 lead ECGon 03-08-2023 ECG 12 lead ECG [facility] [address] Electrocardiograph Report Signed Patient: Tiffanie Petersen MR#: [id number] 30 : 1970 Acct:[id number] Age/Sex: 52 / F ADM Date: 03/08/23 Loc: [place] Room: Type: [facility] Attending Dr: Basil Caputo MD Ordering Provider: Manny Neff DO Date of Service: 03/08/2307/30/1258 ECG/ECG 12 lead ECG: pain Copies to: Test Reason : Blood Pressure : 139/085 mmHG Vent. Rate : 079 BPM Atrial Rate : 079 BPM P-R Int : 182 ms QRS Dur : 086 ms QT Int : 346 ms P-R-T Axes : 051 046 068 degrees QTc Int : 396 ms Normal sinus rhythm Nonspecific ST abnormality Abnormal ECG When compared with ECG of 30-SEP-2015 12:30, No significant change was found Confirmed by Manny Neff DO ([id number]) on 03/08/2023 2:29:17 PM Referred By: Electronically Signed By:Manny Neff DO Transcribed By: MUS Signed By Manny Neff DO 3 1429 Normal [facility] Eosinophils Auto (Bld) [#/Vo l]Ordered By: Basil Boudreaux on 03-08-2023 Eosinophils (Bld) [#/Vol] 0.1 10*3/uL 0.0-0.45 [facility] Eosinophils/100 WBC Auto (Bl d)Ordered By: Basil Boudreaux on 03-08-2023 Eosinophils/100 WBC (Bld) 0.8 % . [facility] Erythrocyte distribution wid th Auto (RBC) [Ratio]Ordered By: Basil Boudreaux on 03-08-2023 Erythrocyte distribution width (RBC) [Ratio] 13.3 % 11.9-15.3 [facility] Globulin Calc (S) [Mass/Vol] Ordered By: Basil Boudreaux on 03-08-2023 Globulin (S) [Mass/Vol] 3.5 g/dL [facility] Glucose [Mass/volume] in Ser um or PlasmaOrdered By: Basil Boudreaux on 03-08-2023 Glucose [Mass/Vol] 91 mg/dL 70-100 [facility] Comment on above: ADA recommended refe renmoustapha rangeRandom Glucose Reference Range is dependent on time and content of last meal. Glucose of more than 200 mg/dL in a nonstressed, ambulatory subject supports the diagnosis of Diabetes Mellitus. HCG ( test) IA.rapi d Ql (U)Ordered By: Basil Boudreaux on 03-08-2023 HCG ( test) Ql (U) Negative [facility] HCG,Urineon 03-08-2023 Beta HCG ( test) Ql (U) Negative Normal [facility] Comment on above: Order Comment: Name Collection Type:: Clean-Voided Midstream Result Comment: PERF ORMED BY: [place] [address] PATHOLOGIST REACH TRUCK OPERATOR NICHOLAS FLETCHER M.D. Performed By: #### A DDONUAKALA, [facility] #### [address] Hematocrit Auto (Bld) [Volum e fraction]Ordered By: Basil Boudreaux on 03-08-2023 Hematocrit (Bld) [Volume fraction] 38.6 % 34.0-46.4 [facility] Hemoglobin [Mass/volume] in BloodOrdered By: Basil Boudreaux on 03-08-2023 Hemoglobin (Bld) [Mass/Vol] 13.4 g/dL 11.8-15.4 [facility] Hepatic Panelon 03-08-2023 Albumin [Mass/Vol] 4.6 g/dL Normal 3.5-5.7 [facility] Comment on above: Performed By: #### H EPATIC, BMP, CBC, LIPASE #### [facility] [address] Albumin/Globulin [Mass ratio] 1.3 {ratio} Normal [facility] Comment on above: Performed By: #### H EPATIC, BMP, CBC, LIPASE #### [facility] [address] ALP [Catalytic activity/Vol] 82 U/L Normal 34-104 [facility] Comment on above: Performed By: #### H EPATIC, BMP, CBC, LIPASE #### [address] ALT [Catalytic activity/Vol] 35 U/L Normal 7-52 [facility] Comment on above: Performed By: #### H EPATIC, BMP, CBC, LIPASE #### [address] AST [Catalytic activity/Vol] 21 U/L Normal 13-39 [facility] Comment on above: Performed By: #### H EPATIC, BMP, CBC, LIPASE #### [address] Bilirubin [Mass/Vol] 0.5 mg/dL Normal 0.3-1.0 [facility] Comment on above: Performed By: #### H EPATIC, BMP, CBC, LIPASE #### [address] Bilirubin,Indirect 0.5 mg/dL Normal [facility] Comment on above: Performed By: #### H EPATIC, BMP, CBC, LIPASE #### [address] Bilirubin.indirect [Mass/Vol] 0.00 mg/dL Low 0.03-0.18 [facility] Comment on above: Result Comment: If t he DBIL is less than 0.1, IBIL is not able to be calculated. Performed By: #### H EPATIC, BMP, CBC, LIPASE #### [address] Globulin (S) [Mass/Vol] 3.5 g/dL Normal [facility] Comment on above: Performed By: #### H EPATIC, BMP, CBC, LIPASE #### [address] Protein [Mass/Vol] 8.1 g/dL Normal 6.4-8.9 [facility] Comment on above: Performed By: #### H EPATIC, BMP, CBC, LIPASE #### [address] [place] [address] [facility] Ketones Auto test strip (U) [Mass/Vol]Ordered By: Basil Boudreaux on 03-08-2023 Ketones (U) [Mass/Vol] Negative Negative [facility] - UrinalysisOrder ed By: Basil Boudreaux on 03-08-2023 Hyaline casts LM Ql (Urine sed) 0-8 [LPF] 0-8 [facility] Leukocytes [#/volume] correc janet for nucleated erythrocytes in Blood by Automated counOrdered By: Basil Boudreaux on 03-08-2023 WBC corrected for nucl RBC Auto (Bld) [#/Vol] 8.4 10*3/uL 3.8-11.6 [facility] Lipaseon 03-08-2023 Lipase [Catalytic activity/Vol] 23.0 U/L Normal 11.0-82.0 [facility] Comment on above: Result Comment: PERF ORMED BY: [address] [place] [address] PATHOLOGIST REACH TRUCK OPERATOR NICHOLAS FLETCHER M.D. Performed By: #### H EPATIC, BMP, CBC, LIPASE #### [facility] [address] [place] [address] Lipase [Enzymatic activity/v olume] in Serum or PlasmaOrdered By: Basil Boudreaux on 03-08-2023 Lipase [Catalytic activity/Vol] 23.0 U/L 11.0-82.0 [facility] Lymphocytes Auto (Bld) [#/Vo l]Ordered By: Basil Boudreaux on 03-08-2023 Lymphocytes (Bld) [#/Vol] 1.3 10*3/uL 1.00-4.8 [facility] Lymphocytes/100 WBC Auto (Bl d)Ordered By: Basil Boudreaux on 03-08-2023 Lymphocytes/100 WBC (Bld) 15.3 % . [facility] MCH Auto (RBC) [Entitic mass ]Ordered By: Basil Boudreaux on 03-08-2023 MCH (RBC) [Entitic mass] 32.4 pg 24.7-34.3 [facility] MCHC Auto (RBC) [Mass/Vol]Or dered By: Basil Boudreaux on 03-08-2023 MCHC (RBC) [Mass/Vol] 34.7 g/dL 32.0-35.0 [facility] MCV Auto (RBC) [Entitic vol] Ordered By: Basil Boudreaux on 03-08-2023 MCV (RBC) [Entitic vol] 93.4 fL 80-100 [facility] Monocyte distribution width [Entitic volume] in Blood by AutomatedOrdered By: Basil Boudreaux on 03-08-2023 Monocyte distribution width Auto (Bld) [Entitic vol] 16.55 % 0.00-20.00 [facility] Monocytes Auto (Bld) [#/Vol] Ordered By: Basil Boudreaux on 03-08-2023 Monocytes (Bld) [#/Vol] 0.7 10*3/uL 0.0-0.8 [facility] Monocytes/100 WBC Auto (Bld) Ordered By: Basil Boudreaux on 03-08-2023 Monocytes/100 WBC (Bld) 8.2 % . [facility] Neutrophils Auto (Bld) [#/Vo l]Ordered By: Basil Boudreaux on 03-08-2023 Neutrophils (Bld) [#/Vol] 6.4 10*3/uL 1.8-7.7 [facility] Neutrophils/100 WBC Auto (Bl d)Ordered By: Basil Boudreaux on 03-08-2023 Neutrophils/100 WBC (Bld) 75.4 % . [facility] Nitrite Test strip Ql (U)Ord ered By: Basil Boudreaux on 03-08-2023 Nitrite Ql (U) Negative Negative [facility] No Panel InformationOrdered By: Basil Boudreaux on 03-08-2023 Estimated GFR (CKD-EPI) > 60.0 mL/Min [facility] Creatinine Clearance (Chem 59.36 [facility] Nucleated erythrocytes [Pres ence] in Blood by Automated countOrdered By: Basil Boudreaux on 03-08-2023 Nucleated RBC Auto Ql (Bld) 0.0 /100{WBC} 0-0.5 [facility] Platelet mean volume Auto (B ld) [Entitic vol]Ordered By: Basil Boudreaux on 03-08-2023 Platelet mean volume (Bld) [Entitic vol] 8.0 fL 6.3-10.7 [facility] Platelets Auto (Bld) [#/Vol] Ordered By: Basil Boudreaux on 03-08-2023 Platelets (Bld) [#/Vol] 285 10*3/uL 150-450 [facility] Potassium [Moles/volume] in Serum or PlasmaOrdered By: Basil Boudreaux on 03-08-2023 Potassium [Moles/Vol] 4.0 mmol/L 3.5-5.1 [facility] Protein Auto test strip (U) [Mass/Vol]Ordered By: Basil Boudreaux on 03-08-2023 Protein (U) [Mass/Vol] Negative Negative [facility] Protein [Mass/volume] in Ser um or PlasmaOrdered By: Basil Boudreaux on 03-08-2023 Protein [Mass/Vol] 8.1 g/dL 6.4-8.9 [facility] RBC Auto (Bld) [#/Vol]Ordere d By: Basil Boudreaux on 03-08-2023 RBC (Bld) [#/Vol] 4.13 10*6/uL 3.60-5.00 [facility] Serum or plasma albumin/glob ulin mass ratioOrdered By: Basil Boudreaux on 03-08-2023 Albumin/Globulin [Mass ratio] 1.3 {ratio} [facility] Serum or plasma anion gap de terminationOrdered By: Basil Boudreaux on 03-08-2023 Anion gap [Moles/Vol] 10.9 mmol/L 6.0-15.0 [facility] Serum or plasma non-glucuron idated bilirubin measurement (mass/volume)Ordered By: Basil Boudreaux on 03-08-2023 Bilirubin.indirect [Mass/Vol] 0.5 mg/dL [facility] Sodium [Moles/volume] in Ser um or PlasmaOrdered By: Basil Boudreaux on 03-08-2023 Sodium [Moles/Vol] 140 mmol/L 136-145 [facility] Specific gravity Auto test s trip (U) [Rel density]Ordered By: Basil Boudreaux on 03-08-2023 Specific gravity (U) [Rel density] 1.011 1.001-1.03 0 [facility] Squamous epithelial cells de tection in urine sediment by light microscopyOrdered By: Basil Boudreaux on 03-08-2023 Epithelial cells.squamous LM Ql (Urine sed) 0-1 [HPF] 0-2 [facility] Urea nitrogen [Mass/volume] in Serum or PlasmaOrdered By: Basil Boudreaux on 03-08-2023 Urea nitrogen [Mass/Vol] 23 mg/dL 7-25 [facility] Urine bacteria detection by automated methodOrdered By: Basil Boudreaux on 03-08-2023 Bacteria Auto Ql (U) None seen None Seen [facility] Urine clarity by refractomet ry automatedOrdered By: Basil Boudreaux on 03-08-2023 Clarity Refractometry automated (U) Clear Clear [facility] Urine glucose measurement by automated test strip (mass/volume)Ordered By: Basil Boudreaux on 03-08-2023 Glucose Auto test strip (U) [Mass/Vol] Normal mg/dL Normal [facility] Urine hemoglobin detection b y automated test stripOrdered By: Basil Boudreaux on 03-08-2023 Hemoglobin Auto test strip Ql (U) 2+ Negative [facility] Urine leukocyte esterase det ection by automated test stripOrdered By: Basil Boudreaux on 03-08-2023 Leukocyte esterase Auto test strip Ql (U) 1+ Negative [facility] Urobilinogen Auto test strip (U) [Mass/Vol]Ordered By: Basil Boudreaux on 03-08-2023 Urobilinogen (U) [Mass/Vol] Normal mg/dL Normal [facility] WBC Auto (Bld) [#/Vol]Ordere d By: Basil Boudreaux on 03-08-2023 WBC (Bld) [#/Vol] 8.4 10*3/uL 3.8-11.6 [facility] pH Auto test strip (U)Ordere d By: Basil Boudreaux on 03-08-2023 pH (U) 7.5 [pH] 5.0-9.0 [facility] CHEMISTRYOrdered By: SYSTEM SYSTEM on 03-26-2022 Anion gap [Moles/Vol] 12 mmol/L Normal 6 - 16 mEq/L [facility] Calcium [Mass/Vol] 9.3 mg/dL Normal 8.9 - 11. 1 mg/dL [facility] Chloride [Moles/Vol] 101 mmol/L Normal 101 - 1 11 mmol/L [facility] CO2 [Moles/Vol] 27 mmol/L Normal 21 - 31 mmol/L [facility] Creatinine [Mass/Vol] 0.7 mg/dL Normal 0.5 - 1.3 mg/dL [facility] GFR/1.73 sq M.predicted among blacks MDRD (S/P/Bld) [Vol rate/Area] mL/min/1.73 m2 Normal >=59mL/min /1.73 m2 [facility] Chem S GFR/1.73 sq M.predicted among non-blacks MDRD (S/P/Bld) [Vol rate/Area] mL/min/1.73 m2 Normal >=59mL/min /1.73 m2 [facility] Chem S Glucose [Mass/Vol] 108 mg/dL Normal 55 - 199 mg/dL [facility] Potassium [Moles/Vol] 3.7 mmol/L Normal 3.5 - 5.3 mmol/L [facility] Sodium [Moles/Vol] 136 mmol/L Normal 135 - 145 mmol/L [facility] Urea nitrogen [Mass/Vol] 19 mg/dL Normal 5 - 21 mg/dL [facility] Urea nitrogen/Creatinine [Mass ratio] 27 mg/mg High - [facility] HEMATOLOGYOrdered By: Paul Nash on 03-26-2022 Erythrocyte distribution width (RBC) [Ratio] 13.3 % Normal 10.9 - 14.2 % [facility] Hematocrit (Bld) [Volume fraction] 38.9 % Normal 34.0 - 46.0 % [facility] Hemoglobin (Bld) [Mass/Vol] 13.4 g/dL Normal 12.0 - 16.0 gm/dL [facility] MCH (RBC) [Entitic mass] 32.3 pg Normal 27.0 - 34.0 pg [facility] MCHC (RBC) [Mass/Vol] 34.4 g/dL Normal 31.4 - 36.0 gm/dL [facility] MCV (RBC) [Entitic vol] 94.0 fL Normal 80.0 - 100.0 fL [facility] Platelet mean volume (Bld) [Entitic vol] 8.2 fL Normal 6.4 - 10.8 fL [facility] Platelets (Bld) [#/Vol] 263.0 E9/L Normal 150.0 - 500.0 E9/L [facility] RBC (Bld) [#/Vol] 4.1 E12/L Low 4.3 - 5.9 E12/L [facility] WBC corrected for nucl RBC Auto (Bld) [#/Vol] 4.3 E9/L Normal 4.0 - 11.0 E9/L [facility] CNPNon 08-04-2021 CNPN Telephone (ZULLY) TIFFANIE PETERSEN ([id number]) 1970 F Date Time Provider Department 08/04/21 ZAHIDA MCGOVERN During your visit today, we recorded the following information about you: DARREL Coburn 08/04/2021 1:37 PM Signed Left a voicemail for patient due to issues our internet consultant was having in mailing a copy of genetic test results to patient. I requested she provide an email address that results can be sent to as she does not have a [employer] account. Contact information was provided. Will await her contact. Zahida Mcgovern MS, CGC Licensed, Certified Genetic Counselor DARREL Coburn 08/05/2021 12:10 PM Signed Patient called back and provided her email. Results and clinic note sent. Zahida Mcgovern MS, CGC Licensed, Certified Genetic Counselor Allergies As of Date: 08/04/2021 (Not on File) Date Reviewed: Never Reviewed Reason for Visit: Patient Update [1234] Problem List As Of Date: 08/04/2021 (None) Encounter Status:Closed by ZAHIDA MCGOVERN on 08/04/21 Normal [facility] CNPNichol 06-12-2021 CNPN Telephone (GMWHITLEY) TIFFANIE PETERSEN ([id number]) 1970 F Date Time Provider Department 06/12/21 ZAHIDA MCGOVERN During your visit today, we recorded the following information about you: DARREL Coburn 06/12/2021 11:22 AM Signed Patient name and was confirmed at initiation of discussion. HISTORY Tiffanie Petersen is a 51 year old female with a paternal and maternal family history of cancer. Her mother was also found to have a PMS2 mutation. She was seen on 06/03/21, initially referred for genetic counseling and risk assessment by Dr. Felicity Govea to discuss the possibility of a genetic predisposition to cancer. At that initial visit the patient chose to pursue next generation sequencing for hereditary cancer syndromes. At that time, a plan was made to discuss these results by telephone when available. The patient's medical history, family history, genetic testing results, and plan were reviewed with Dr. Wanda Guadarrama prior to contacting the patient. RESULTS Tiffanie Petersen's Common Hereditary Cancers Panel through [facility] was negative for a deleterious mutation. 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 A variant of unknown significance (VUS) is a genetic variation for which insufficient data exists in order to determine if it is associated with disease (deleterious mutation) or is a normal genetic variant which can occur in the population without disease (polymorphism). As more individuals with this genetic change and further information about this VUS is accumulated we will better understand the consequence of it. Eventually most VUS will be reclassified as deleterious or benign, but first we must collect more data on individuals with this VUS and/or learn more about the biologic changes that occur because of this variant. When a variant of uncertain significance is identified we make medical management recommendations that are based on a patient's personal and family history of cancer. Regarding the patient's unaffected family members, it is not recommended that they be tested for the variant that has been identified in the patient, because we are uncertain of this variant?s effect. Quantifying their risk of cancer is based solely on the family history information. A scanned copy of this test report is available through [facility] chart review under the lab tab, listed as external lab - miscellaneous lab. RISK ASSESSMENT AND PLAN The Common Hereditary Cancer Panel includes APC, ROSINA, AXIN2, BARD1, BMPR1A, BRCA1, BRCA2, BRIP1, CDH1, CDK4, CDKN2A, CHEK2, CTNNA1, DICER1, EPCAM, GREM1, HOXB13, KIT, MEN1, MLH1, MSH2, MSH3, MSH6, MUTYH, NBN, NF1, NTHL1, PALB2, PDGFRA, PMS2, POLD1, POLE, PTEN, RAD50, RAD51C, RAD51D, SDHA, SDHB, SDHC, SDHD, SMAD4, SMARCA4, STK11, TP53, TSC1, TSC2, VHL. This is a true negative for her mother's mutaiton, meaning that the patient did not inherit the gene mutation responsible for a hereditary cancer syndrome in her maternal family. ? These results also mean that the patient's children are not at risk to inherit the familial mutation from the patient. Full assessment of the patient's children's risk is dependent on the cancer family history from the other parent. This negative result also makes a hereditary cancer syndrome less likely for the patient, however it cannot rule it out as the explanation for the paternal family history of cancer. There are several possible explanations for a negative genetic testing result: 1. It is estimated that a small percentage of mutations are not detected with the utilized testing technology. These negative results make a hereditary cancer syndrome less likely, but they do not entirely rule out the possibility that a mutation exists in these genes that could not be detected. 2. There may be other genes that increase the odds of cancer for which there is no testing at this time, or testing was not indicated by the personal or family history. 3. Cancer is common. Cancer may be due to chance. 4. Some families have clustering of cancer. In these families, the risk of cancer may be higher than the general population. These cancers are likely attributed to shared genetic, environmental, and lifestyle factors. 5. If the patient has not had cancer and is the first person in the family to have genetic testing, this negative result could be due to the above reasons or it could be that there is a cancer mutation in the family, but this patient did not inherit it. 6. There is chance the above variant of uncertain significance could be a deleterious mutation. We will attempt to contact the patient if an amended report is issued. The patient is also advised to contact us every few years for any updates. The patient was encouraged to recontact us with any changes to the personal or family history of cancer as this may affect (more content not included)... [facility] CNPNichol 04-29-2021 CNPN Telephone (GMTapgage) TIFFANIE PETERSEN ([id number]) 1970 F Date Time Provider Department 04/29/21 ZAHIDA MCGOVERN During your visit today, we recorded the following information about you: DARREL Coburn 04/29/2021 2:08 PM Signed Patient left me a voicemail with questions about scheduling a genetic counseling visit based on her mother's abnormal genetic test results. I returned her call and left a detailed message on process to obtain an appointment. I also encouraged her to call me directly if she experienced any issues or had residual questions/concerns. Zahida Mcgovern MS, [facility] Licensed, Certified Genetic Counselor Allergies As of Date: 04/29/2021 (Not on File) Date Reviewed: Never Reviewed Reason for Visit: Patient Question [1477] Problem List As Of Date: 04/29/2021 (None) Encounter Status:Closed by ZAHIDA MCGOVERN on 04/29/21 [facility] Provider Note - ED v2on 08- Provider Note - ED v2 Provider Note - ED v2: Chart Review: HISTORY OF PRESENTING ILLNESS TIFFANIE is a 50 year old Female and was seen by me at 10-Jan-2021 17:03 for a chief complaint of ear pain. The historian is the patient. Additional Details: Patient presents with 1 day history of right-sided ear pain. Patient endorses pain into the ear, she states she has an ear cleaning kit at home that when she used it she thought she saw blood on the Q-tip. She states her other ear was recently cleaned out by her PCP. She denies any recent URI symptoms such as cough, sneezing, sinus congestion, sore throat, fever, chills. She denies chest pain, shortness of breath, nausea, vomiting, ringing in the ears but she does endorse reduced hearing. She has not taken anything for it aside from the ear cleaning kit. Triage Information: Most recent Vital Sign Value Date PAST MEDICAL HISTORY ATTESTATION: I have reviewed and confirmed nurse's/medic's notes for patient's medications, allergies, and medical, surgical, family and social history ALLERGIES/INTOLERANCES: Allergy Allergen: vancomycin Type: Drug Reaction: Other Allergen: penicillin Type: Drug Reaction: Unknown HEALTH HISTORY: No documented data. OUTPATIENT MEDICATIONS: Home Medications Review Status for Reconciliation: Complete Med Status: Patient Currently Takes Medications Drug Name: atenolol Instructions: orally once a day Drug Name: Cozaar Instructions: orally once a day Drug Name: omeprazole Instructions: orally once a day Drug Name: atorvastatin Instructions: orally once a day Drug Name: Azithromycin 5 Day Dose Pack 250 mg oral tablet Instructions: follow instructions on dose pack SIGNIFICANT EVENTS: Other Description:SMOKER Additional Notes:1/2 A PACK A DAY Past Medical History Description:HYPERTENSION Additional Notes:01/2021 Past Surgical History 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: Is : no Is : no REVIEW OF SYSTEMS CONSTITUTIONAL: Negative for: chills, diaphoresis, fever and malaise ENMT Ears: POSITIVE for: hearing loss and pain Negative for: discharge, itching, hearing disturbance and tinnitus Nose: Negative for: congestion and discharge Throat/Neck: Negative for: throat pain CARDIOVASCULAR: Negative for: chest pain RESPIRATORY: Negative for: cough, dyspnea and wheezing GASTROINTESTINAL: Negative for: diarrhea, nausea and vomiting; MUSCULOSKELETAL: Negative for: pain NEUROLOGICAL: Negative for: headache; All other systems reviewed and are negative RESULTS/VITAL SIGNS VITAL SIGNS: T PRBP SpO2O2(LPM) %FiO2 Method 10-Jan-2021 16:40:[id number] PHYSICAL EXAM CONSTITUTIONAL: Appearance: well appearing Development: well developed Distress: no apparent Manner: appropriate for situation Mentation: awake and alert Mood: appropriate Nourishment: well HENMT: Head Examination: atraumatic Face: no signs of abnormality Ear: - BILATERAL TM's EFFUSION (initially cerumen impaction in bilateral ears, then after irrigation bilateral ears with effusion) EYES: Bilteral Eyes: clear and PERRL Left Conjunctiva: clear Right Conjunctiva: clear CARDIOVASCULAR: Cardiac Rhythm: regular Cardiac Rate: normal RESPIRATORY: Respiratory Distress: no respiratory distress Breath Sounds: normal breath sounds Rales: no rales Wheezes: no wheezes Rhonchi: no rhonchi NEUROLOGICAL: Level of Consciousness: alert and follows commands Memory: memory/cognition intact Speech: clear Gait and Weight Bearing: normal SKIN: Skin normal color for race, warm, dry and intact. No evidence of trauma. PSYCHIATRIC: Alert and oriented to person, place, time/situation. normal mood and affect. No apparent risk to self or others. MEDICAL DECISION MAKING/ED COURSE MDM/ED COURSE: Discussed Findings with: patient Data Reviewed: vital signs Treatment Plan: Irrigated ears with warm water and hydrogen peroxide solution. Patient's cerumen impaction was successfully removed from bilateral ears, patient endorsed improved hearing but endorsed continued pain in the right ear. Advised patient use ibuprofen/Tylenol and fluticasone nasal steroid spray which she has at home to help symptoms. Provided prescription for Z-James and advised patient to wait a few days to see if the other symptomatic management improved symptoms for her combined with the ear cleaning. If symptoms persist beyond 3 days she should go ahead and start the Z-James. Patient in agreement with plan of care and verbalizes understanding. The pt's clinical presentation is otherwise unremarkable at this time. Based on exam and clinical findings the pt is stable for discharge with instructions to follow up with primary care or seek emergency medical attention for worsening symptoms or any new concerns. CLINICAL IMPRESSION Diagnosis/Annotation: ED Dx Name (more content not included)... Normal [facility] CBC AUTO DIFFon 08-25-2018 Basophils #/vol (Bld) 0.0 103/ul Normal 0.0-0.1 [facility] Comment on above: Performed By: #### C BC #### [facility] [address] [place] [address] Cholocarol ann Salas Basophils/100 WBC (Bld) 0.7 % Normal 0.2-2.0 [facility] Comment on above: Performed By: #### C BC #### [facility] [address] [address] Cholo Maritza Eosinophils #/vol (Bld) 0.1 103/ul Normal 0.0-0.7 [facility] Comment on above: Performed By: #### C BC #### [facility] [address] [address] Cholo Maritza Eosinophils/100 WBC (Bld) 1.9 % Normal 0.9-7.0 [facility] Comment on above: Performed By: #### C BC #### [facility] [address] [place] [address] Cholocarol ann Salas Erythrocyte distribution width Ratio (RBC) 12.3 % Normal 11.0-15.0 [facility] Comment on above: Performed By: #### C BC #### [facility] [address] [place] [address] Cholo Salas Hematocrit Volume Fraction (Bld) 39.2 % Normal 36.0-48.0 [facility] Comment on above: Performed By: #### C BC #### [facility] [address] [place] [address] Cholo Salas Hemoglobin mass conc (Bld) 13.2 g/dL Normal 12.0-16.0 [facility] Comment on above: Performed By: #### C BC #### [facility] [address] [place] [address] Cholo Maritza IG # 0.04 10e3/ul Critically high 0.00-0.03 [facility] Comment on above: Performed By: #### C BC #### [facility] [address] [place], [place] [id number] Cholo Maritza IG % 1.0 % Critically high 0.0-0.5 [facility] Comment on above: Performed By: #### C BC #### [facility] [address] [place], [place] [id number] Cholo Maritza Lymphocytes #/vol (Bld) 1.4 103/ul Normal 1.2-3.8 [facility] Comment on above: Performed By: #### C BC #### [facility] [address] [place], [place] [id number] Cholo Salas Lymphocytes/100 WBC (Bld) 33.6 % Normal 20.5-60.0 [facility] Comment on above: Performed By: #### C BC #### [facility] [address] [place] [address] Cholo Salas MANUAL DIFF REQ NO Normal [facility] Comment on above: Performed By: #### C BC #### [facility] [address] [place] [address] Cholo Salas MCH Entitic mass (RBC) 31.8 pg Normal 26.7-34.0 [facility] Comment on above: Performed By: #### C BC #### [facility] Laboratory [address] [place] [address] Cholo Salas MCHC mass conc (RBC) 33.7 g/dL Normal 29.9-35.2 [facility] Comment on above: Performed By: #### C BC #### [facility] [address] [place] [address] Cholo Salas MCV Entitic volume (RBC) 94.5 fL Normal 81.0-99.0 [facility] Comment on above: Performed By: #### C BC #### [facility] [address] [place] [address] Cholo Salas Monocytes #/vol (Bld) 0.3 103/ul Normal 0.3-0.8 [facility] Comment on above: Performed By: #### C BC #### [facility] [address] [place], [place] [id number] Cholo Salas Monocytes/100 WBC (Bld) 7.0 % Normal 1.7-12.0 [facility] Comment on above: Performed By: #### C BC #### [facility] [address] [place] [address] Cholocarol ann Salas Neutrophils #/vol (Bld) 2.3 103/ul Normal 1.4-6.5 [facility] Comment on above: Performed By: #### C BC #### [facility] [address] [place], [place] [id number] Cholo Salas Neutrophils/100 WBC (Bld) 55.8 % Normal 43.0-75.0 [facility] Comment on above: Performed By: #### C BC #### [facility] [address] [place], [place] [id number] Cholo Salas Platelet mean volume Entitic volume (Bld) 9.7 fL Normal 9.5-13.5 [facility] Comment on above: Performed By: #### C BC #### [facility] [address] [place] [address] Cholo Salas Platelets #/vol (Bld) 279 103/ul Normal 150-450 [facility] Comment on above: Performed By: #### C BC #### [facility] [address] [place] [address] Cholo Salas RBC #/vol (Bld) 4.15 106/ul Critically low 4.20-5.40 [facility] Comment on above: Performed By: #### C BC #### [facility] [address] [place], [place] [id number] Cholo Salas WBC #/vol (Bld) 4.2 103/ul Normal 4.0-11.0 [facility] Comment on above: Performed By: #### C BC #### [facility] [address] [place] [address] Cholo Salas CPKon 08-25-2018 CK enzyme act/vol 71 U/L Normal 30-135 [facility] Comment on above: Performed By: #### B MP, LIPID, URIC, MG, TSH, PHOS, CK, LIVER, FT3 #### [facility] [address] [place], [place] [id number] Cholo Salas FREE T3on 08-25-2018 T3 free mass conc 3.15 pg/mL Normal 2.77-5.27 [facility] Comment on above: Performed By: #### C BC #### [facility] [address] [address] Cholo Maritza FREE T4on 08-25-2018 T4 free mass conc 1.08 ng/dL Normal 0.78-2.19 [facility] Comment on above: Performed By: #### C BC #### [facility] [address] [id number] Cholo Salas IRONon 08-25-2018 Iron mass conc 105.0 ug/dL Normal 37.0-170.0 [facility] Comment on above: Performed By: #### C BC #### [facility] [address] [address] Cholo Maritza LIPID PROFILEon 08-25-2018 CHOL-HDL RATIO NORM SEE BELOW Normal [facility] Comment on above: Result Comment: 3.3 - 4.4 LOW RISK 4.4 - 7.1 AVERAGE RISK 7.1 - 11.0 MODERATE RISK >11.0 HIGH RISK Performed By: #### B MP, LIPID, URIC, MG, TSH, PHOS, CK, LIVER, FT3 #### [facility] [address] [place] [address] Cholo Maritza Cholesterol in HDL mass conc > or = 60 mg/dl - LOW CARDIOVASCULAR RISK <40 mg/dl - HIGH CARDIOVASCULAR RISK Normal [facility] Comment on above: Performed By: #### B MP, LIPID, URIC, MG, TSH, PHOS, CK, LIVER, FT3 #### [facility] [address] [address] Cholo Maritza Cholesterol in HDL mass conc 36 mg/dL Normal [facility] Comment on above: Performed By: #### B MP, LIPID, URIC, MG, TSH, PHOS, CK, LIVER, FT3 #### [facility] [address] [address] Cholo Maritza Cholesterol in LDL mass conc 117.6 mg/dL Normal [facility] Comment on above: Performed By: #### B MP, LIPID, URIC, MG, TSH, PHOS, CK, LIVER, FT3 #### [facility] [address] [address] Cholo Maritza Cholesterol in LDL mass conc SEE BELOW Normal [facility] Comment on above: Result Comment: <100 mg/dl OPTIMAL 100 - 129 mg/dl NEAR OR ABOVE OPTIMAL 130 - 159 mg/dl BORDERLINE HIGH 160 - 189 mg/dl HIGH >190 mg/dl VERY HIGH Performed By: #### B MP, LIPID, URIC, MG, TSH, PHOS, CK, LIVER, FT3 #### [facility] [address] [address] Cholo Maritza Cholesterol mass conc 170 mg/dL Normal <=200 [facility] Comment on above: Performed By: #### B MP, LIPID, URIC, MG, TSH, PHOS, CK, LIVER, FT3 #### [facility] [address] [address] Cholo Maritza Cholesterol.total/Chol esterol in HDL mass ratio 4.7 {ratio} Normal [facility] Comment on above: Performed By: #### B MP, LIPID, URIC, MG, TSH, PHOS, CK, LIVER, FT3 #### [facility] [address] [address] Cholocarol ann Salas Triglyceride mass conc 82 mg/dL Normal <=150 [facility] Comment on above: Performed By: #### B MP, LIPID, URIC, MG, TSH, PHOS, CK, LIVER, FT3 #### [facility] [address] [address] Cholocarol ann Salas VLDL CALC 16.4 mg/dL Normal [facility] Comment on above: Performed By: #### B MP, LIPID, URIC, MG, TSH, PHOS, CK, LIVER, FT3 #### [facility] [address] [address] Cholo Maritza LIVER PROFILEon 08-25-2018 Albumin mass conc 4.5 g/dL Normal 3.5-5.0 [facility] Comment on above: Performed By: #### B MP, LIPID, URIC, MG, TSH, PHOS, CK, LIVER, FT3 #### [facility] [address] [address] Cholocarol ann Salas Albumin/Globulin mass ratio 1.3 {ratio} Normal [facility] Comment on above: Performed By: #### B MP, LIPID, URIC, MG, TSH, PHOS, CK, LIVER, FT3 #### [facility] [address] [id number] Cholo Maritza ALP enzyme act/vol 105 U/L Normal 38-126 [facility] Comment on above: Performed By: #### B MP, LIPID, URIC, MG, TSH, PHOS, CK, LIVER, FT3 #### [facility] [address] [address] Cholo Maritza ALT enzyme act/vol 27 U/L Normal 9-52 [facility] Comment on above: Performed By: #### B MP, LIPID, URIC, MG, TSH, PHOS, CK, LIVER, FT3 #### [facility] [address] [place] [address] Cholo Maritza AST enzyme act/vol 14 U/L Normal 14-36 [facility] Comment on above: Performed By: #### B MP, LIPID, URIC, MG, TSH, PHOS, CK, LIVER, FT3 #### [facility] [address] [place] [address] Cholo Maritza BILI, CONJUGATED 0.1 mg/dL Normal 0.0-0.3 [facility] Comment on above: Performed By: #### B MP, LIPID, URIC, MG, TSH, PHOS, CK, LIVER, FT3 #### [facility] [address] [place] [address] Cholo Maritza Bilirubin Ql (U) 0.5 mg/dL Normal 0.2-1.3 [facility] Comment on above: Performed By: #### B MP, LIPID, URIC, MG, TSH, PHOS, CK, LIVER, FT3 #### [facility] [address] [id number] Cholo Maritza Globulin mass conc (S) 3.4 g/dL Normal [facility] Comment on above: Performed By: #### B MP, LIPID, URIC, MG, TSH, PHOS, CK, LIVER, FT3 #### [facility] [address] [place] [address] Cholo Maritza Protein mass conc 7.9 g/dL Normal 6.1-8.2 [facility] Comment on above: Performed By: #### B MP, LIPID, URIC, MG, TSH, PHOS, CK, LIVER, FT3 #### [facility] [address] [address] Cholo Salas MAGNESIUMon 08-25-2018 Magnesium mass conc 2.0 mg/dL Normal 1.6-2.3 [facility] Comment on above: Performed By: #### B MP, LIPID, URIC, MG, TSH, PHOS, CK, LIVER, FT3 #### [facility] [address] [place] [address] Cholo Salas MICROALBUMIN, RAND URon - mALB 3.2 mg/dL Normal <=30.0 [facility] Comment on above: Performed By: #### M ALBR #### [facility] [address] [place] [address] Cholo Salas mALBH PLEASE NOTE: NORMAL RANGE CHANGE, TESTING PERFORMED AT [facility]. Normal [facility] Comment on above: Performed By: #### M ALBR #### [facility] [address] [place] [address] Cholo Salas PHOSPHORUSon 08-25-2018 Phosphate mass conc 3.8 mg/dL Normal 2.5-4.5 [facility] Comment on above: Performed By: #### B MP, LIPID, URIC, MG, TSH, PHOS, CK, LIVER, FT3 #### [facility] [address] [place] [address] Cholo Salas PROF CHEM 8 (BAS METB)on Anion gap molar conc 13.4 mmol/L Normal [facility] Comment on above: Performed By: #### B MP, LIPID, URIC, MG, TSH, PHOS, CK, LIVER, FT3 #### [facility] [address] [place] [address] Cholo Salas Calcium mass conc 9.7 mg/dL Normal 8.4-10.2 [facility] Comment on above: Performed By: #### B MP, LIPID, URIC, MG, TSH, PHOS, CK, LIVER, FT3 #### [facility] [address] [address] Cholo Maritza Chloride molar conc 103 mmol/L Normal 98-107 [facility] Comment on above: Performed By: #### B MP, LIPID, URIC, MG, TSH, PHOS, CK, LIVER, FT3 #### [facility] [address] [address] Cholo Maritza CO2 molar conc 29.5 mmol/L Normal 22.0-30.0 [facility] Comment on above: Performed By: #### B MP, LIPID, URIC, MG, TSH, PHOS, CK, LIVER, FT3 #### [facility] [address] [address] Cholo Maritza Creatinine mass conc 0.64 mg/dL Normal 0.52-1.04 [facility] Comment on above: Performed By: #### B MP, LIPID, URIC, MG, TSH, PHOS, CK, LIVER, FT3 #### [facility] [address] [address] Cholo Maritza EGFR-AF [place] >60 Normal >=60 [facility] Comment on above: Performed By: #### B MP, LIPID, URIC, MG, TSH, PHOS, CK, LIVER, FT3 #### [facility] [address] [address] Cholo Maritza EGFR-NON AF [place] >60 Normal >=60 [facility] Comment on above: Performed By: #### B MP, LIPID, URIC, MG, TSH, PHOS, CK, LIVER, FT3 #### [facility] [address] [address] Cholo Maritza Glucose mass conc 89 mg/dL Normal 74-106 [facility] Comment on above: Performed By: #### B MP, LIPID, URIC, MG, TSH, PHOS, CK, LIVER, FT3 #### [facility] [address] [address] Hcolo Maritza Potassium molar conc 3.9 mmol/L Normal 3.4-5.0 [facility] Comment on above: Performed By: #### B MP, LIPID, URIC, MG, TSH, PHOS, CK, LIVER, FT3 #### [facility] [address] [address] Cholo Salas Sodium molar conc 142 mmol/L Normal 137-145 [facility] Comment on above: Performed By: #### B MP, LIPID, URIC, MG, TSH, PHOS, CK, LIVER, FT3 #### [facility] [address] [address] Cholo Salas Urea nitrogen mass conc 19.0 mg/dL Critically high 7.0-17.0 [facility] Comment on above: Performed By: #### B MP, LIPID, URIC, MG, TSH, PHOS, CK, LIVER, FT3 #### [facility] [address] [place] [address] Cholo Salas Urea nitrogen/Creatinine mass ratio 29.7 mg/mg Normal [facility] Comment on above: Performed By: #### B MP, LIPID, URIC, MG, TSH, PHOS, CK, LIVER, FT3 #### [facility] [address] [place] [address] Cholo Salas TSHon 08-25-2018 Thyrotropin Qn SEE BELOW Normal [facility] Comment on above: Result Comment: <0.3 4 UIU/ml HYPERTHYROID 0.34-5.60 UIU/ml EUTHYROID >5.60 UIU/ml HYPOTHYROID Performed By: #### B MP, LIPID, URIC, MG, TSH, PHOS, CK, LIVER, FT3 #### [facility] [address] [place] [address] Cholo Salas Thyrotropin Qn 1.215 uIU/mL Normal 0.470-4.68 0 [facility] Comment on above: Performed By: #### B MP, LIPID, URIC, MG, TSH, PHOS, CK, LIVER, FT3 #### [facility] [address] [place] [address] Cholo Salas UA (CLEAN/CATCH) FINISH ROLLS OPERATOR/MICRO I F IND.on 08-25-2018 Bilirubin.direct mass conc Negative Normal NEGATIVE [facility] Comment on above: Performed By: #### C BC #### [facility] [address] [place] [address] Cholo Salas BLOOD LARGE Normal NEGATIVE [facility] Comment on above: Performed By: #### C BC #### [facility] [address] [place] [address] Cholo Salas Clarity Nom (U) CLEAR Normal [facility] Comment on above: Performed By: #### C BC #### [facility] [address] [place] [address] Cholo Maritza Color Nom (U) LT. YELLOW Normal YELLOW [facility] Comment on above: Performed By: #### C BC #### [facility] [address] [place] [address] Cholo Maritza Glucose mass conc Negative Normal NEGATIVE [facility] Comment on above: Performed By: #### C BC #### [facility] [address] [place] [address] Cholo Mraitza Ketones Ql (U) Negative Normal NEGATIVE [facility] Comment on above: Performed By: #### C BC #### [facility] [address] [place] [address] Cholo Maritza Nitrite Ql (U) Negative Normal NEGATIVE [facility] Comment on above: Performed By: #### C BC #### [facility] [address] [place] [address] Cholo Maritza pH (Bld) 7.0 Normal 5-9 [facility] Comment on above: Performed By: #### C BC #### [facility] [address] [place] [address] Cholo Maritza Protein mass conc Negative Normal [facility] Comment on above: Performed By: #### C BC #### [facility] [address] [place] [address] Cholo Maritza SPEC GRAVITY 1.015 Normal 1.005-<=1. 025 [facility] Comment on above: Performed By: #### C BC #### [facility] [address] [place] [address] Cholo Maritza UR MICRO IND MICROSCOPIC ALREADY ORDERED Normal [facility] Comment on above: Performed By: #### C BC #### [facility] [address] [place] [address] Cholo Maritza Urobilinogen Qn (U) 0.2 EU/dl Normal [facility] Comment on above: Performed By: #### C BC #### [facility] [address] [place] [address] Cholo Maritza WBC #/vol (Bld) Negative Normal NEGATIVE [facility] Comment on above: Performed By: #### C BC #### [facility] [address] [place] [address] Cholo Maritza URIC ACID SERUMon 08-25-2018 Urate mass conc 3.7 mg/dL Normal 2.5-6.2 [facility] Comment on above: Performed By: #### B MP, LIPID, URIC, MG, TSH, PHOS, CK, LIVER, FT3 #### [facility] [address] [place] [address] Cholo Maritza URINE MICROSCOPIC ONLYon Bacteria LM.HPF #/area (Urine sed) NONE SEEN Normal NONE SEEN [facility] Comment on above: Performed By: #### C BC #### [facility] [address] [place] [address] Cholo Maritza CAST NONE SEEN Normal NONE SEEN [facility] Comment on above: Performed By: #### C BC #### [facility] [address] [place] [address] Cholo Maritza Crystals LM Nom (Urine sed) NONE SEEN Normal NONE SEEN [facility] Comment on above: Performed By: #### C BC #### [facility] [address] [place] [address] Cholo Maritza CULTURE NOT INDICATED Normal [facility] Comment on above: Performed By: #### C BC #### [facility] [address] [place] [address] Cholo Maritza Epithelial cells LM.HPF #/area (Urine sed) RARE Normal [facility] Comment on above: Performed By: #### C BC #### [facility] [address] [place] [address] Cholo Maritza MUCOUS NONE SEEN Normal NONE SEEN [facility] Comment on above: Performed By: #### C BC #### [facility] [address] [place] [address] Cholo Maritza RBC #/vol (U) /uL Normal 0-2 [facility] Comment on above: Performed By: #### C BC #### [facility] [address] [place] [address] Cholo Maritza WBC #/vol (Bld) NONE SEEN Normal NONE SEEN [facility] Comment on above: Performed By: #### C BC #### [facility] [address] [place] [address] Cholo Maritza VIT B12 AND FOLATEon 019 Cobalamin (Vitamin B12) mass conc 1693.0 pg/mL Critically high 239.0-931. 0 [facility] Comment on above: Performed By: #### C BC #### [facility] [address] [place] [address] Cholo Maritza FOLATE 19.90 ng/mL Normal >=2.76 [facility] Comment on above: Performed By: #### C BC #### [facility] [address] [place], [place] [id number] Cholo Maritza VITAMIN D 25 OHon 08-25-2018 VIT D 25-OH 16.2 ng/mL Normal [facility] Comment on above: Performed By: #### C BC #### [facility] [address] [place], [place] [id number] Cholo Maritza VIT D RANGES SEE BELOW Normal [facility] Comment on above: Result Comment: <20 ng/mL Vit D deficient 20 - <30 ng/mL Vit D insufficient 30 - 100 ng/mL Vit D sufficient >100 ng/mL Potential Toxicity Performed By: #### C BC #### [facility] [address] [place] [address] Cholo Maritza VITDH PLEASE NOTE: NORMAL RANGE CHANGE 02-09-2013, TESTING PERFORMED AT [facility]. 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 Normal [facility] Vital Signs Date Time Vital Sign Value Performing Clinician Facility 09-22-2023 11:53-0400 Body temperature 98.6 [degF] MD Gabriella Rojas Work Phone: [facility] 09-22-2023 11:53-0400 Diastolic blood pressure 67 mm[Hg] MD Gabriella Rojas Work Phone: [facility] 09-22-2023 11:53-0400 Heart rate 66 /min MD Gabriella Rojas Work Phone: [facility] 09-22-2023 11:53-0400 Respiratory rate 16 /min MD Gabriella Rojas Work Phone: [facility] 09-22-2023 11:53-0400 SaO2% (BldA) [Mass fraction] 96 % MD Gabriella Rojas Work Phone: [facility] 09-22-2023 11:53-0400 Systolic blood pressure 104 mm[Hg] MD Gabriella Rojas Work Phone: [facility] 09-22-2023 10:15-0400 Body height 157.48 cm MD Gabriella Rojas Work Phone: [facility] 09-22-2023 06:00-0400 Body weight 75.8 kg MD Gabriella Rojas Work Phone: [facility] 09-21-2023 18:10-0400 Inhaled oxygen flow rate 6 L/min MD Gabriella Rojas Work Phone: [facility] 09-21-2023 16:58-0400 Body mass index (BMI) [Ratio] 30.6 kg/m2 MD Gabriella Rojas Work Phone: [facility] 09-21-2023 04:53-0400 Diastolic blood pressure 91 mm[Hg] MD Gabriella Rojas Work Phone: [facility] 09-21-2023 04:53-0400 Heart rate 84 /min MD Gabriella Rojas Work Phone: [facility] 09-21-2023 04:53-0400 Respiratory rate 18 /min MD Gabriella Rojas Work Phone: [facility] 09-21-2023 04:53-0400 SaO2% (BldA) [Mass fraction] 96 % MD Gabriella Rojas Work Phone: [facility] 09-21-2023 04:53-0400 Systolic blood pressure 163 mm[Hg] MD Gabriella Rojas Work Phone: [facility] 09-21-2023 02:29-0400 Body temperature 98 [degF] MD Gabriella Rojas Work Phone: [facility] 09-20-2023 21:37-0400 Body height 160.02 cm MD Gabriella Rojas Work Phone: [facility] 09-20-2023 21:37-0400 Body weight 76.4 kg MD Gabriella Rojas Work Phone: [facility] 08-25-2023 15:27-0400 Blood Pressure Location Basil CAPUTO [facility] 08-25-2023 15:27-0400 Body temperature 97.16 [degF] Basil CAPUTO [facility] 08-25-2023 15:27-0400 Diastolic blood pressure 80 mm[Hg] Basil CAPUTO [facility] 08-25-2023 15:27-0400 Heart rate 94 /min Basil CAPUTO [facility] 08-25-2023 15:27-0400 Respiratory rate 18 /min Basil CAPUTO [facility] 08-25-2023 15:27-0400 Systolic blood pressure 140 mm[Hg] Basilsea CAPUTO [facility] 05-18-2023 15:46-0500 Blood Pressure Location Basilsea CAPUTO [facility] 05-18-2023 15:46-0500 Diastolic blood pressure 97 mm[Hg] Basil CAPUTO [facility] 05-18-2023 15:46-0500 Heart rate 90 /min Basilsea CAPUTO [facility] 05-18-2023 15:46-0500 Systolic blood pressure 152 mm[Hg] Basilsea CAPUTO [facility] 03-29-2023 21:23-0400 Diastolic blood pressure 93 mm[Hg] DO Manny Aishwarya Work Phone: [facility] 03-29-2023 21:23-0400 Heart rate 83 /min DO Manny Aishwarya Work Phone: [facility] 03-29-2023 21:23-0400 Respiratory rate 18 /min DO Manny Aishwarya Work Phone: [facility] 03-29-2023 21:23-0400 SaO2% (BldA) [Mass fraction] 94 % DO Manny Aishwarya Work Phone: [facility] 03-29-2023 21:23-0400 Systolic blood pressure 147 mm[Hg] DO Manny Aishwarya Work Phone: [facility] 03-29-2023 17:12-0400 Body height 157.48 cm DO Manny Aishwarya Work Phone: [facility] 03-29-2023 17:12-0400 Body temperature 98 [degF] DO Manny Aishwarya Work Phone: [facility] 03-29-2023 17:12-0400 Body weight 74.8 kg DO Manny Aishwarya Work Phone: [facility] 03-08-2023 15:35-0400 Diastolic blood pressure 74 mm[Hg] DO Manny Aishwarya Work Phone: [facility] 03-08-2023 15:35-0400 Heart rate 75 /min DO Manny Aishwarya Work Phone: [facility] 03-08-2023 15:35-0400 Respiratory rate 16 /min DO Manny Aishwarya Work Phone: [facility] 03-08-2023 15:35-0400 SaO2% (BldA) [Mass fraction] 98 % DO Manny Aishwarya Work Phone: [facility] 03-08-2023 15:35-0400 Systolic blood pressure 106 mm[Hg] DO Manny Aishwarya Work Phone: [facility] 03-08-2023 14:18-0400 Body mass index (BMI) [Ratio] 30.1 kg/m2 DO Manny Aishwarya Work Phone: [facility] 03-08-2023 13:56-0400 Body height 160.02 cm DO Manny Aishwarya Work Phone: [facility] 03-08-2023 13:56-0400 Body weight 77.11 kg DO Manny Aishwarya Work Phone: [facility] 03-08-2023 13:20-0400 Body temperature 97.8 [degF] DO Manny Aishwarya Work Phone: [facility] Encounters Encounter Date Encounter Type Care Provider Facility Start: 09-30-2023 ambulatory Basil Perera ty:[id number] Start: 09-21-2023 End: 09-22-2023 ambulatory Adonay LUGO Facility:CD:[id number] Start: 09-21-2023 End: 09-22-2023 Evaluation and management of inpatient Tye Gracia Facility:[facility] Start: 09-21-2023 Non-patient / Non-visit MD Mary Rojas Work Phone: [facility] Work Phone: Start: 09-21-2023 End: 09-22-2023 Evaluation and management of inpatient MD Gabriella Rojas Work Phone: [facility] Work Phone: Start: 08-25-2023 End: 08-26-2023 ambulatory Basil CAPUTO Facility:[facility] Start: 08-25-2023 End: 08-25-2023 Patient encounter procedure Basil CAPUTO [facility] Start: 08-23-2023 End: 08-23-2023 ambulatory Basil Caputo Facility:[facility] Start: 08-23-2023 End: 08-23-2023 ambulatory MD Gabriella Rojas Work Phone: [facility] Work Phone: Start: 08-23-2023 End: 08-23-2023 Patient encounter procedure MD Gabriella Rojas Work Phone: [facility] Work Phone: Start: 08-16-2023 End: 08-16-2023 ambulatory PAYTON NOEL Not Available Start: 06-03-2023 End: 06-03-2023 ambulatory Basil Caputo Facility:[facility] Start: 06-03-2023 End: 06-03-2023 ambulatory DO Manny Neff Work Phone: [facility] Work Phone: Start: 06-03-2023 End: 06-03-2023 Patient encounter procedure DO Manny Aishwarya Work Phone: [facility] [place] Work Phone: Start: 05-18-2023 End: 05-19-2023 ambulatory Basilsea CAPUTO Facility:[facility] Start: 05-18-2023 End: 05-18-2023 Patient encounter procedure Basil CAPUTO [facility] Start: 05-03-2023 End: 05-04-2023 ambulatory Basil Hyacinth CAPUTO Facility:CD:[id number] Start: 04-06-2023 End: 04-06-2023 ambulatory Basilsea Caputo Facility:[facility] Start: 04-06-2023 End: 04-06-2023 ambulatory DO Manny M Aishwarya Work Phone: [facility] Work Phone: Start: 04-06-2023 End: 04-06-2023 Patient encounter procedure DO Manny Aishwarya Work Phone: [facility] [place] Work Phone: Start: 04-01-2023 End: 04-02-2023 ambulatory Basilsea CAPUTO Facility:CD:[id number] Start: 03-29-2023 End: 03-29-2023 Emergency department patient visit Gabriella Rojas Facility:[facility] Start: 03-29-2023 End: 03-29-2023 Emergency department patient visit DO Manny Aishwarya Work Phone: [facility]-Emergency Room Work Phone: Start: 03-09-2023 ambulatory Basilsea CAPUTO Facility :[facility] Start: 03-08-2023 End: 03-08-2023 ambulatory Gabriella Rojas Facility:[facility] Start: 03-08-2023 End: 03-08-2023 Admission to same day surgery center DO Manny Aishwarya Work Phone: [facility]gery [facility] [place] Start: 03-08-2023 End: 03-09-2023 ambulatory DO Manny M Aishwarya Work Phone: [facility] Work Phone: Start: 04-16-2022 End: 04-16-2022 Lab Drop off Heron Luz Maria Whitlock [facility] Start: 03-26-[address] Gabriella Rojas [facility] ity:[id number] Start: 03-26-2022 End: 03-26-2022 Patient encounter procedure Heron Whitlock [facility] Start: 10-10-2018 End: 10-11-2018 Patient encounter procedure DEFAULT PHYSICIAN Facility:[facility] Start: 08-25-2018 End: 08-26-2018 Patient encounter procedure DEFAULT PHYSICIAN Facility:[facility] Start: 08-25-2018 End: 08-26-2018 [facility] Facility: Start: 08-16-2018 End: 08-17-2018 Patient encounter procedure DEFAULT PHYSICIAN Facility:[facility] Start: 01-13-2017 End: 01-13-2017 Emergency department patient visit [facility] Procedures Date Procedure Procedure Detail Performing Clinician Start: 09-21-2023 Cystoscopy MD Gabriella arroyo Work Phone: Start: 09-21-2023 CT of abdomen and pe lvis without contrast MD Gabriella Rojas Work Phone: Start: 08-23-2023 Diagnostic radiograp hy of abdomen MD Gabriella Rojas Work Phone: Start: 05-18-2023 Cystoscopic removal of ureteric stent Basil CAPUTO Start: 04-06-2023 Diagnostic radiograp hy of abdomen DO Manny Aishwarya Work Phone: Start: 03-29-2023 CT of abdomen and pe lvis without contrast DO Manny Aishwarya Work Phone: Start: 03-29-2023 Urine culture DO Manny Aishwarya Work Phone: Start: 03-08-2023 Abdomen endoscopy DO John Neff Work Phone: Start: 03-08-2023 Cystoscopy DO Manny greer Work Phone: Start: 03-08-2023 CT of abdomen and pe lvis without contrast DO Manny Neff Work Phone: Start: 03-08-2023 Cystoscopic insertio n of ureteric stent Basil CAPUTO Start: 03-08-2023 Diagnostic radiograp hy of abdomen DO Manny Neff Work Phone: Start: 04-02-2017 Cystoscopic ureteric stent procedure Heron Whitlokc Comment on above: CYSTO RIGHT RETROGRA DE, RIGHT STENT REMOVAL, URETERSCOPY WITH HOMIUM LASER, STONE BASKET, RIGHT STENT PLACEMENT Start: 03-25-2017 Extracorporeal shock wave lithotripsy of calculus of kidney Heron Whitlock Comment on above: right, cystoscopy Start: 09-18-2015 Cysto, right RGP, ri ght JJ ureteral stent placement under fluoroscopic guidance. Heron Whitlock Hysterectomy Heron Whitlock left knee surgery Heron Whitlock Plan of Treatment Date Care Activity Detail Author Start: 09-22-2023 [facility] Start: 09-21-2023 [facility] Start: 09-21-2023 Hospital admission [facility] Start: 09-21-2023 [facility] Start: 09-21-2023 Referral to urologist [facility] Start: 09-21-2023 CT Abdomen and Pelvi s WO contrast [facility] Start: 09-21-2023 CT of abdomen and pe lvis without contrast CT abdomen pelvis wo con [facility] Start: 06-02-2023 [facility] Start: 03-29-2023 Bacteria identified in Urine by Culture [facility] Start: 03-18-2023 [facility] Start: 03-17-2023 [facility] Start: 03-16-2023 [facility] Start: 03-15-2023 [facility] Start: 03-14-2023 [facility] Start: 03-13-2023 Blood chemistry [facility] Start: 03-13-2023 [facility] Start: 03-12-2023 Blood chemistry [facility] Start: 03-12-2023 [facility] Start: 03-11-2023 Blood chemistry [facility] Start: 03-11-2023 [facility] Start: 03-10-2023 Blood chemistry [facility] Start: 03-10-2023 [facility] Start: 03-09-2023 Blood chemistry [facility] Start: 03-09-2023 [facility] Start: 03-08-2023 End: 03-08-2023 [facility] Start: 03-08-2023 Hospital admission [facility] Start: 03-08-2023 Referral to urologist [facility] Start: 03-08-2023 [facility] Bilirubin measurement [facility] Body weight [facility] Calcium [Mass/time] in 24 hour Urine [facility] Calcium [Mass/volume ] in 24 hour Urine [facility] Calcium carbonate/To tyler in Stone [facility] Calcium hydrogen mag sphate dihydrate/Total in Stone [facility] Calcium oxalate monohydrate/Total in Stone [facility] Calcium phosphate level [facility] Calculus analysis wi th calculus photography [Interpretation] in Stone [facility] Calculus analysis, qualitative [facility] Calculus analysis, quantitative [facility] Calculus analysis, quantitative, infrared spectroscopy [facility] Cellular material [Mass/mass] of Stone by Estimated [facility] Cholesterol [Mass/vo lume] in Serum or Plasma [facility] Cystine measurement [facility] Determination of aleida culus chemical composition [facility] Evaluation procedure [facility] Hydroxyapatite [Ener gy Difference] in 24 hour Urine [facility] Laboratory data interpretation [facility] Magnesium [Mass/time ] in 24 hour Urine [facility] Magnesium [Mass/volu me] in Urine [facility] Newberyite/Total in Stone [facility] Oxalate [Mass/time] in 24 hour Urine [facility] Patient Education [facility] Work Phone: Patient referral [facility] Work Phone: Phosphate [Mass/time ] in 24 hour Urine [facility] Phosphate [Mass/volu me] in Urine [facility] Specimen source subj ect [Type] [facility] Triamterene measurement [facility] Triple phosphate/Tot al in Stone [facility] Urate [Mass/time] in 24 hour Urine [facility] Urate [Mass/volume] in Urine [facility] Immunizations Immunization Date Immunization Notes Care Provider Fa cili 10-16-2021 zoster vaccine recombinant Basil CAPUTO [facility] 08-02-2021 zoster vaccine recombinant Basil CAPUTO [facility] 03-24-2021 SARS-CoV-2 (COVID-19 ) mRNA BNT-162b2 vax Basil [place] [facility] 03-01-2021 SARS-CoV-2 (COVID-19 ) mRNA BNT-162b2 vax Basil CAPUTO [facility] Payers Date Payer Category Payer Self-pay 2014 Unknown [id number] 1970 Unknown [id number] 2.16.84 [id number] 1970 Unknown [id number] 2.16.8 [id number] 1970 Unknown [id number] 2.16.8 [id number] 1970 Unknown [id number] 2.16.8 40.1.605153.3.579.2.647 1970 Unknown [id number] 2.16. [id number] 1970 Unknown [id number] 2.16.84 [id number] 1970 Unknown [id number] 2.16.8 40.1.785947.3.579.2.727 1970 Unknown [id number] 2.16.8 40.1.361010.3.579.2.727 1970 Unknown [id number] 2.16.8 40.1.830336.3.579.2.727 1970 Unknown [id number] 2.16.8 40.1.149028.3.579.2.727 1970 Unknown [id number] 2.16.8 40.1.867765.3.579.2.727 1970 Unknown [id number] 2.16.8 40.1.198078.3.579.2.727 1970 Unknown [id number] 2.16.8 40.1.145042.3.579.2.727 1959 Unknown [id number] Unknown Unknown [id number] 2.16.8 40.1.215671.3.579.2.531 Unknown [id number] 2.16.8 40.1.012744.3.579.2.531 Unknown 1964 2.16.8 40.1.496245.3.579.2.531 Unknown [id number] 2.16.8 40.1.305305.3.579.2.531 Unknown [id number] 2.16.8 40.1.415693.3.579.2.531 Unknown [id number] 2.16.8 40.1.182996.3.579.2.531 Social History Date Type Detail Facility Start: 08-28-2020 End: 08-25-2023 Tobacco smoking status Light tobacco smoker (finding) [facility] Sex Assigned At Female [facility] Start: 03-08-2023 End: 09-21-2023 Tobacco smoking status NHIS Smoker (finding) [facility] Start: 1970 Sex Assigned At Female [facility] Tobacco smoking status Never [facility] NEGATED: Highlighted row [facility] Medical Equipment Procedure Code Equipment Code Equipment Origin al Text Equipment Identifier Dates Cystoscopy, with ureteral calculus manipulation and stent placement Polymeric ureteral stent [id number] FDA Start: 03-08-2023 Goals Date Patient Goal Desired Activity /State Functional Status Date Assessment Result Facility 09-21-2023 Functional status Patient at Baseline [facility] Work Phone: 08-25-2023 Functional Status N/A [facility] 05-18-2023 Functional Status N/A [facility] Mental Status Date Assessment Result Facility 09-21-2023 Cognitive function Cognitive Sta tus Patient at Baseline [facility] Work Phone: Clinical Notes 06-03-2021 to 09-22-2023 Note Date & Type Note Facility 09-22-2023 Progress note Note Date/Time September 22, 2023 9:32am [facility] [address] [place] [address] Hospitalist Progress Note Signed Patient: Tiffanie Petersen MR#: [id number] : 1970 Acct:[id number] Age/Sex: 53 / F Adm Date: 4 Loc: 4N Room: 1B3668-3 Type: ADM IN Attending Dr: Ramon Isaac MD Copies to: ~ Date of Service: 09/22/2023 Subjective Subjective Narrative: Patient was seen and evaluated at bedside. Remained afebrile, hemodynamically stable. Feels much better after underwent cystoscopy yesterday. Tolerated well with no immediate complications. Feels ready to go home today. Exam Physical Exam Vital Signs: Temp Pulse Resp BP Pulse Ox O2 Del Method O2 Flow Rate 98.5 F 73 16 111/83 94 L Room Air 6 09/22/23 08:00 09/22/23 08:00 09/22/23 08:00 09/22/23 08:00 09/22/23 08:00 09/22/23 08:00 09/21/23 18:10 Narrative: Const General: cooperative HEENT Normal oropharyngeal mucosa without any ulcers or exudates Eyes: Conjunctiva normal Pulmonary Auscultation: clear to auscultation , no crackles, no wheezes Cardiovascular Rate: normal rate Rhythm: regular rhythm Heart Sounds: S1 normal, S2 normal and no murmurs GI Inspection: non-distended Palpation: soft, not firm and nontender. No rigidity or rebound. Deferred Neuro General: alert, awake and oriented x3. No obvious new focal deficit Musculoskeletal: normal range of motion Extrem General: no cyanosis, no pedal edema Psych Appearance: appropriate affect. Grossly normal Objective Lab Results 09/22/23 06:00 09/22/23 06:00 Meds Allergies and Active Meds Allergies Penicillins Allergy (Verified 09/21/23 00:59) Unknown Reaction vancomycin Allergy (Verified 09/21/23 00:59) Hives Active Meds: Active Medications Generic Name Dose Route Start Last Admin Trade Name Freq PRN Reason Stop Dose Admin Acetaminophen 1,000 mg 09/21/23 06:24 Acetaminophen 500 Mg Tablet PO 09/20/24 06:23 Q6H PRN Fever or Pain Atorvastatin Calcium 20 mg 09/21/23 09:00 09/22/23 08:58 Atorvastatin 20 Mg Tablet PO 09/20/24 08:59 20 mg QAM DAYNA Administration Cyclobenzaprine HCl 10 mg 09/21/23 09:00 09/22/23 08:58 Cyclobenzaprine 10 Mg Tablet PO 09/20/24 08:59 10 mg BID DAYNA Administration Hyoscyamine 0.125 mg 09/21/23 18:33 Hyoscyamine Sulfate 0.125 Mg Tab.Rapdis SUBLINGUAL 09/20/24 18:32 Q4H PRN Bladder Spasms Parenteral Electrolytes 1,000 mls @ 125 mls/hr 09/21/23 06:30 09/22/23 06:55 Plasma-Lyte A Ph 7.4 IV 09/20/24 06:29 Not Given .Q8H DAYNA Levofloxacin 750 mg in 150 mls @ 100 mls/hr 09/21/23 09:00 09/22/23 09:22 Levaquin IV 100 mls/hr DAILY DAYNA Administration Ketorolac Tromethamine 30 mg 09/21/23 06:24 Ketorolac Tromethamine 30 Mg/Ml Vial IV-PUSH 09/26/23 06:23 Q6H PRN Pain Metoprolol Tartrate 50 mg 09/21/23 09:00 09/22/23 08:58 Metoprolol Tartrate 50 Mg Tablet PO 09/20/24 08:59 50 mg BID DAYNA Administration Morphine Sulfate 2 mg 09/21/23 06:24 09/21/23 08:42 Morphine Sulfate 2 Mg/Ml Vial IV-PUSH 2 mg Q3H PRN Administration Pain Prochlorperazine Edisylate 10 mg 09/21/23 06:24 09/21/23 08:42 Prochlorperazine Edisylate 10 Mg/2 Ml Vial IV-PUSH 09/20/24 06:23 10 mg Q4H PRN Administration Nausea And Vomiting Senna/Docusate Sodium 2 tab 09/21/23 09:00 09/22/23 08:58 Sennosides/Docusate 8.6-50mg 1 Tab Tablet PO 09/20/24 08:59 2 tab BID DAYNA Administration Sertraline HCl 25 mg 09/21/23 09:00 09/22/23 08:58 Sertraline 25 Mg Tablet PO 09/20/24 08:59 25 mg DAILY DAYNA Administration Sodium Chloride 0 ml 09/20/23 21:42 09/21/23 04:32 Sodium Chloride 0.9 % 10 Ml Syringe IV-PUSH 09/19/24 21:41 10 ml PRN PRN Administration Flush Tolterodine Tartrate 4 mg 09/21/23 09:00 09/22/23 08:59 Tolterodine 4 Mg Cap.Er.24h PO 09/20/24 08:59 4 mg DAILY DAYNA Administration A&P - Hospitalist Assessment/Plan (1) Renal calculus, right: (2) Hydronephrosis with ureteral calculus: (3) Hydroureteronephrosis: Plan - Remained afebrile, no leukocytosis, hemodynamically stable -Underwent cystoscopy with right double-J stent placement and stone removal laser ablation and basket extraction right distal ureteral calculus -Prescribed course of antibiotics as per urology -Will need to follow-up with urology as outpatient -Instructed regarding hydration Discussed with patient at bedside, all questions answered, patient in agreement and comfortable with discharge plan. Documented By: Ramon Isaac MD 09/22/23 09 32 Signed By: <Electronically signed by Ramon Isaac MD> 09/22/23 1153 [facility] Work Phone: 1(652) 485-662504-16-2024 Consult note Author Adonay Lugo [facility] September 21, 2023 5:32pm Note Date/Time September 21, 2023 5:3 2pm [facility] [address] [place] [address] Urology Consult Note Signed Patient: Tiffanie Petersen MR#: [id number] : 1970 Acct:[id number] Age/Sex: 53 / F Adm Date: 4 Loc: 4N Room: [address] [place] [address] Type: ADM IN Attending Dr: Ramon Isaac MD Copies to: MD Gabriella Gordon MD, MD~ History of Present Illness Consult Details Consult Date: 09/21/2023 Requesting Provider: Ramon Isaac MD HPI: Thank for consultation on this 53-year-old female with a positive prior history of kidney stones who presented to the ER with the acute onset of right-sided flank pain. CT scan demonstrated about a 7 mm stone in the upper aspect of the lower ureter. She also has a left-sided renal calculi. She apparently is on the surgical schedule with Dr. Caputo for left-sided ESWL perhaps next week. She has had no fever or chills but the pain became severe prompting her visit tot ER. The entire PMH,PSH,ROS, family and social history, medications, and allergies are reviewed and unchanged from the admission H and P documented by Dr. Gracia earlier today. [facility] Medical History Hypertension Kidney stones Surgical History H/O foot surgery left History of hysterectomy History of knee surgery Family History Other No significant family history Social History Smoking Status: Current every day smoker Tobacco Type: cigarettes Substance Use Type: None Meds Medications and Allergies Allergies Penicillins Allergy (Verified 09/21/23 00:59) Unknown Reaction vancomycin Allergy (Verified 09/21/23 00:59) Hives Home Medications alendronate 35 mg tablet 35 mg PO QWEEK 03/08/23 [History Confirmed 09/21/23] atenolol 50 mg tablet 50 mg PO QPM 03/08/23 [History Confirmed 09/21/23] atorvastatin 20 mg tablet 20 mg PO QAM 03/08/23 [History Confirmed 09/21/23] cyclobenzaprine 10 mg tablet 10 mg PO BID 03/08/23 [History Confirmed 09/21/23] losartan 50 mg tablet 50 mg PO DAILY 03/08/23 [History Confirmed 09/21/23] meloxicam 7.5 mg tablet 7.5 mg PO DAILY 03/08/23 [History Confirmed 09/21/23] sertraline 25 mg tablet 25 mg PO DAILY 03/08/23 [History Confirmed 09/21/23] solifenacin 10 mg tablet (Vesicare) 10 mg PO DAILY #30 tabs 03/08/23 [Rx Confirmed 09/21/23] trazodone 50 mg tablet 50 mg PO QHS PRN Sleep 03/08/23 [History Confirmed 09/21/23] albuterol sulfate 90 mcg/actuation aerosol inhaler 2 puff inhalation Q4HR PRN shortness of breath or wheezing 09/21/23 [History Confirmed 09/21/23] potassium bicarbonate-citric acid 25 mEq effervescent tablet (Effer-K) 25 meq POBID 09/21/23 [History Confirmed 09/21/23] Exam Physical Exam Vital Signs: Temp Pulse Resp BP Pulse Ox O2 Del Method 98.1 F 75 16 122/84 95 Room Air 09/21/23 15:01 09/21/23 15:01 09/21/23 15:01 09/21/23 15:01 09/21/23 15:01 09/21/23 15:01 Narrative: General: The patient appears nontoxic. Does not appear ill. Skin: Warm, dry. No gross lesions are identified. HEENT: Normocephalic, atraumatic. Pupils equal, round, and reactive to light and accommodation. Oral mucosa moist. Respiratory: No increased respiratory effort. Cardiac: Regular rate and rhythm GI: Abdomen is soft, nontender, negative peritoneal signs, no obvious hepatosplenomegaly : The bladder is nonpalpable. There is no CVA tenderness bilaterally. Genitalia: Normal external female genitalia Musculoskeletal: Moves all extremities, normal strength Neurologic: Awake, alert, oriented Psychiatric: Affect normal to clinical condition No obvious adenopathy Results - Urology Labs 09/20/23 21:50 09/20/23 21:50 Labs: Laboratory Results - Last 48 hrs. 09/20/23 22:25: Urine Color Yellow, Urine Appearance Clear, Urine pH 7.0, Ur Specific [place] 1.015, Urine Protein Trace H, Urine Glucose (UA) Normal, Urine Ketones Negative, Urine Occult Blood 3+ H, Urine Nitrite Negative, Urine Bilirubin Negative, Urine Urobilinogen Normal, Ur Leukocyte Esterase Negative, Urine RBC 50-100 H, Urine WBC 0-1, Ur Squamous Epith Cells None seen, Urine Bacteria None seen, Hyaline Casts 0-8 09/20/23 21:50: Corrected WBC 7.6, Uncorrected WBC Count 7.6, RBC 3.97, Hgb 12.5, Hct 37.2, MCV 93.7, MCH 31.4, MCHC 33.6, RDW 13.8, Plt Count 297, MPV 7.4,Neut % (Auto) 67.7, Lymph % (Auto) 20.7, [place] % (Auto) 10.1, Eos % (Auto) 1.2, Baso % (Auto) 0.3, Nucleat RBC Rel Count 0.0, Neut # (Auto) 5.2, Lymph # (Auto) 1.6, [place] # (Auto) 0.8, Eos # (Auto) 0.1, Baso # (Auto) 0.0, Monocyte Dist Width16.80, PHA Creatinine Clear 64.32, Sodium 138, Potassium 3.7, Chloride 106, Carbon Dioxide 26.1, Anion Gap 9.6, BUN 25, Creatinine 0.99, Est GFR (CKD-EPI) >60.0, Glucose 134 H, Calcium 9.[address] scan - abdomen: report reviewed and image reviewed CT scan - pelvis: report reviewed and image reviewed Additional studies: Reviewed urinalysis, viewed laboratory data Assessment/Plan (1) Hydronephrosis with ureteral calculus: Code(s): N13.2 - Hydronephrosis with renal and ureteral calculous obstruction (2) Kidney stone: Code(s): N20.0 - Calculus of kidney Plan Reviewed urinalysis, viewed labs, reviewed CT scan and report. Discussed with the patient and with anesthesia. Overall this patient with a prior history of kidney stones has a large 7 to 8 mmright distal ureteral stone. Recommendation made for operative intervention. She was given the option of conservative management but she wants to proceed with operative intervention. She understands the risk of bleeding, infection, injury to ureter, possible needfor stent. The plan will be for laser lithotripsy if I can get to the stone. She may need an indwelling stent and she certainly is aware of this. She understands the risk of stent pain and irritation. As noted above I believe she is already on the surgical schedule for perhaps left-sided lithotripsy with Dr. Caputo next week. She already has been on intravenous antibiotics. Full informed consent as part of the record. She understands the risk of anesthesia. Documented By: Adonay Lugo MD 09/21/23 1729 Signed By: <Electronically signed by MD Adonay Lugo> 09/21/23 8542 [facility] Work Phone: 1([phone]) 244-826004-16-2024 Progress note Author Ramon Isaac [facility] September 21, 2023 11:40am Note Date/Time September 21, 2023 11: 40am [facility] [address] [place] [address] Progress Note Signed Patient: Tiffanie Petersen MR#: [id number] : 1970 Acct:[id number] Age/Sex: 53 / F Adm Date: 4 Loc: 4N Room: 1G3346-1 Type: ADM IN Attending Dr: Ramon Isaac MD Copies to: ~ Date of Service: 09/21/2023 Progress Narrative Note PROGRESS NOTE Progress Note: Patient was admitted after midnight by overnight hospitalist. Refer to H&P for further details. Patient was admitted here for nephrolithiasis with hydronephrosis. Urology has been consulted and planning intervention today. Patient was seen and evaluated at bedside, her pain is adequately controlled with current regimen, she did have kidney stones in the past and familiar with the process and follows with Dr. Caputo and Dwayne cath outpatient. Remained hemodynamically stable, afebrile, no obvious signs or symptoms of infectious process. Further recommendations to follow by urology. Documented By: Ramon Isaac MD 09/21/23 11 39 Signed By: <Electronically signed by Ramon Isaac MD> 09/21/23 1140 [facility] Work Phone: [phone]) 693-139604-16-2024 History and physical note Author Tye Gracia [facility] September 21, 2023 6:31am Note Date/Time September 21, 2023 6:3 1am [facility] [address] [place] [address] Hospitalist H&P Signed Patient: Tiffanie Petersen MR#: [id number] : 1970 Acct:[id number] Age/Sex: 53 / F Adm Date: 4 Loc: 4N Room: [address] [place] [address] Type: ADM IN Attending Dr: Tye Gracia MD Copies to: MD Gabriella Lane MD~ HPI DATE OF EXAMINATION: 09/21/23 HISTORY OF PRESENT ILLNESS: Patient is a 53-year-old female, who presented today to the emergency departmentcomplaining of sudden onset of right flank pain this morning, accompanied by nausea. She has a history of nephrolithiasis, with multiple interventions last year. She is quite familiar with the symptoms, she suspected a recurrent stone. She had no fevers or chills. She had lithotripsy done a couple of times last year. She has some procedure scheduled for the following week. She is not sure what type of stone she has, but sounds like she did have a 24-hour urine done, and potassium citrate was prescribed. ED evaluation including the imaging with CT scan indicated distal right obstructive stone. Urology service was contacted, recommendation was to admit the patient for possible stenting. Past medical history Nephrolithiasis Hypertension 10 point review of systems negative except as noted Physical exam Patient was seen on the medical floor Patient appears comfortable, in no distress. Skin is normally colored, no icterus, cyanosis or edema noted. Capillary refill is normal. Joints are without any effusion. Abdomen is soft, benign, no rebound or rigidity. No organomegaly. Bowel sounds present. Heart regular, no gallop, rub or JVD. Peripheral pulses present bilaterally. Lungs are clear to auscultation, no rales, ronchi or wheezes. HENT normal Neurological: Patient is awake. Cognition is normal. Cranial nerves are intact. Power is symmetric all extremities, with no focal motor deficit identified on a cursory exam. Psych: affect is normal. CT imaging reviewed Assessment and plan 1. Nephrolithiasis, 7 mm distal right ureteral stone with severe right-sided hydronephrosis. Admit to the hospital. NPO. IV fluids. Symptom control. Antibiotic prophylaxis to prevent pyelonephritis. Urology service will be consulted for stenting. Follow final report of CT scan DVT prophylaxis SCDs Continue treatment for chronic problems with home regimen. [facility] Medical History Hypertension Kidney stones Surgical History H/O foot surgery left History of hysterectomy History of knee surgery Family History Other No significant family history Social History Smoking Status: Current every day smoker Tobacco Type: cigarettes Substance Use Type: None Meds Medications and Allergies Allergies Penicillins Allergy (Verified 09/21/23 00:59) Unknown Reaction vancomycin Allergy (Verified 09/21/23 00:59) Hives Home Medications alendronate 35 mg tablet 35 mg PO QWEEK 03/08/23 [History Confirmed 09/21/23] atenolol 50 mg tablet 50 mg PO QPM 03/08/23 [History Confirmed 09/21/23] atorvastatin 20 mg tablet 20 mg PO QAM 03/08/23 [History Confirmed 09/21/23] cyclobenzaprine 10 mg tablet 10 mg PO BID 03/08/23 [History Confirmed 09/21/23] losartan 50 mg tablet 50 mg PO DAILY 03/08/23 [History Confirmed 09/21/23] meloxicam 7.5 mg tablet 7.5 mg PO DAILY 03/08/23 [History Confirmed 09/21/23] sertraline 25 mg tablet 25 mg PO DAILY 03/08/23 [History Confirmed 09/21/23] solifenacin 10 mg tablet (Vesicare) 10 mg PO DAILY #30 tabs 03/08/23 [Rx Confirmed 09/21/23] trazodone 50 mg tablet 50 mg PO QHS PRN Sleep 03/08/23 [History Confirmed 09/21/23] albuterol sulfate 90 mcg/actuation aerosol inhaler 2 puff inhalation Q4HR PRN shortness of breath or wheezing 09/21/23 [History Confirmed 09/21/23] potassium bicarbonate-citric acid 25 mEq effervescent tablet (Effer-K) 25 meq POBID 09/21/23 [History Confirmed 09/21/23] Exam Physical Exam Vital Signs: Temp Pulse Resp BP Pulse Ox O2 Del Method 97.8 F 70 18 152/82 H 97 Room Air 09/21/23 05:47 09/21/23 05:47 09/21/23 04:53 09/21/23 05:47 09/21/23 05:47 09/21/23 05:47 Results - Hospitalist H&P Lab Results Labs: Laboratory Last Values Corrected WBC 7.6 X10E3/uL (3.8-11.6) 09/20/23 21:50 Uncorrected WBC Count 7.6 x10E3/uL (3.8-11.6) 09/20/23 21:50 RBC 3.97 X10E6/uL (3.60-5.00) 09/20/23 21:50 Hgb 12.5 g/dL (11.8-15.4) 09/20/23 21:50 Hct 37.2 % (34.0-46.4) 09/20/23 21:50 MCV 93.7 fl (80-100) 09/20/23 21:50 MCH 31.4 pg (24.7-34.3) 09/20/23 21:50 MCHC 33.6 g/dL (32.0-35.0) 09/20/23 21:50 RDW 13.8 % (11.9-15.3) 09/20/23 21:50 Plt Count 297 x10E3/uL (150-450) 09/20/23 21:50 MPV 7.4 fl (6.3-10.7) 09/20/23 21:50 Neut % (Auto) 67.7 % (.) 09/20/23 21:50 Lymph % (Auto) 20.7 % (.) 09/20/23 21:50 [place] % (Auto) 10.1 % (.) 09/20/23 21:50 Eos % (Auto) 1.2 % (.) 09/20/23 21:50 Baso % (Auto) 0.3 % (.) 09/20/23 21:50 Nucleat RBC Rel Count 0.0 /100 WBC (0-0.5) 09/20/23 21:50 Neut # (Auto) 5.2 x10E3/uL (1.8-7.7) 09/20/23 21:50 Lymph # (Auto) 1.6 x10E3/uL (1.00-4.8) 09/20/23 21:50 [place] # (Auto) 0.8 x10E3/uL (0.0-0.8) 09/20/23 21:50 Eos # (Auto) 0.1 x10E3/uL (0.0-0.45) 09/20/23 21:50 Baso # (Auto) 0.0 x10E3/uL (0.0-0.2) 09/20/23 21:50 Monocyte Dist Width 16.80 % (0.00-20.00) 09/20/23 21:50 PHA Creatinine Clear 64.32 09/20/23 21:50 Sodium 138 mmol/L (136-145) 09/20/23 21:50 Potassium 3.7 mmol/L (3.5-5.1) 09/20/23 21:50 Chloride 106 mmol/L (98-107) 09/20/23 21:50 Carbon Dioxide 26.1 mmol/L (21.0-31.0) 09/20/23 21:50 Anion Gap 9.6 mEq/L (6.0-15.0) 09/20/23 21:50 BUN 25 mg/dL (7-25) 09/20/23 21:50 Creatinine 0.99 mg/dL (0.60-1.20) 09/20/23 21:50 Est GFR (CKD-EPI) > 60.0 mL/Min 09/20/23 21:50 Glucose 134 mg/dL (70-100) H 09/20/23 21:50 Calcium 9.6 mg/dL (8.6-10.3) 09/20/23 21:50 Urine Color Yellow (Yellow) 09/20/23 22:25 Urine Appearance Clear (Clear) 09/20/23 22:25 Urine pH 7.0 (5.0-9.0) 09/20/23 22:25 Ur Specific [place] 1.015 (1.001-1.030) 09/20/23 22:25 Urine Protein Trace mg/dL (Negative) H 09/20/23 22:25 Urine Glucose (UA) Normal mg/dL (Normal) 09/20/23 22: Urine Ketones Negative (Negative) 09/20/23: Urine Occult Blood 3+ (Negative) H 09/20/23 22: Urine Nitrite Negative (Negative) 09/20/23 22: Urine Bilirubin Negative (Negative) 09/20/23: Urine Urobilinogen Normal mg/dL (Normal) 09/20/23 22:25 Ur Leukocyte Esterase Negative (Negative) 09/20/23 22:25 Urine RBC 50-100 /HPF (0-4) H 09/20/23 22:25 Urine WBC 0-1 /HPF (0-4) 09/20/23 22:25 Ur Squamous Epith Cells None seen /HPF (0-2) 09/20/23 22:25 Urine Bacteria None seen (None Seen) 09/20/23: Hyaline Casts 0-8 /LPF (0-8) 09/20/23 22:25 Assessment & Plan Assessment/Plan (1) Renal calculus, right: Plan \ IP vs OBS Justification Based on differential dx, clinical care plan, and risk of adverse events, if untreated, in my clinical judgement this patient requires an acute care setting as: INPATIENT because of an expectation of an over 2 midnight stay. Estimated length of stay (# of days): 2 Documented By: Tye Gracia MD 09/21/23626 Signed By: <Electronically signed by Tye Gracia MD> 09/21/23630 [facility] Work Phone: 1(480) 546-751503-20-2024 Hospital Discharge instructions Patient Education 08/25/2023 16:35:56 Lithotripsy, Care After Lithotripsy, Care After This sheet gives you information about how to care for yourself after your procedure. Your health care provider may also give you more specific instructions. If you have problems or questions, contact your health care provider. What can I expect after the procedure? After the procedure, it is common to have: Some blood in your urine. This should only last for a few days. Soreness in your back, sides, or upper abdomen for a few days. Blotches or bruises on the area where the shock wave entered the skin. Pain, discomfort, or nausea when pieces (fragments) of the kidney stone move through the tube that carries urine from the kidney to the bladder (ureter). Stone fragments may pass soon after the procedure, but they may continue to pass for up to 4 8 weeks. ?If you have severe pain or nausea, contact your health care provider. This may be caused by a large stone that was not broken up, and this may mean that you need more treatment. Some pain or discomfort during urination. Some pain or discomfort in the lower abdomen or (in men) at the base of the penis. Follow these instructions at home: Medicines Take rqda-hps-lximnlw and prescription medicines only as told by your health care provider. If you were prescribed an antibiotic medicine, take it as told by your health care provider. Do notstop taking the antibiotic even if you start to feel better. Ask your health care provider if the medicine prescribed to you requires you to avoid driving or using machinery. Eating and drinking Drink enough fluid to keep your urine pale yellow. This helps any remaining pieces of the stone to pass. It can also help prevent new stones from forming. Eat plenty of fresh fruits and vegetables. Follow instructions from your health care provider about eating or drinking restrictions. You may be instructed to: ?Reduce how much salt (sodium) you eat or drink. Check ingredients and nutrition facts on packaged foods and beverages to see how much sodium they contain. ?Reduce how much meat you eat. Eat the recommended amount of calcium for your age and gender. Ask your health care provider how much calcium you should have. General instructions Get plenty of rest. Return to your normal activities as told by your health care provider. Ask your health care provider what activities are safe for you. Most people can resume normal activities 1 2 days after the procedure. If you were given a sedative during the procedure, it can affect you for several hours. Do not drive or operate machinery until your health care provider says that it is safe. Your health care provider may direct you to lie in a certain position (postural drainage) and tap firmly (percuss) over your kidney area to help stone fragments pass. Follow instructions as told by your health care provider. If directed, strain all urine through the strainer that was provided by your health care provider. ?Keep all fragments for your health care provider to see. Any stones that are found may be sent to a medical lab for examination. The stone may be as small as a grain of salt. Keep all follow-up visits as told by your health care provider. This is important. Contact a health care provider if: You have a fever or chills. You have nausea that is severe or does not go away. You have any of these urinary symptoms: ?Blood in your urine for longer than your health care provider told you to expect. ?Urine that smells bad or unusual. ?Feeling a strong urge to urinate after emptying your bladder. ?Pain or burning with urination that does not go away. ?Urinating more often than usual and this does not go away. You have a stent and it comes out. Get help right away if: You have severe pain in your back, sides, or upper abdomen. You have any of these urinary symptoms: ?Severe pain while urinating. ?More blood in your urine or having blood in your urine when you did not before. ?Passing blood clots in your urine. ?Passing only a small amount of urine or being unable to pass any urine at all. You have severe nausea that leads to persistent vomiting. You faint. Summary After this procedure, it is common to have some pain, discomfort, or nausea when pieces (fragments)of the kidney stone move through the tube that carries urine from the kidney to the bladder (ureter). If this pain or nausea is severe, however, you should contact your health care provider. Return to your normal activities as told by your health care provider. Ask your health care provider what activities are safe for you. Drink enough fluid to keep your urine pale yellow. This helps any remaining pieces of the stone to pass, and it can help prevent new stones from forming. If directed, strain your urine and keep all fragments for your health care provider to see. Fragments or stones may be as small as a grain of salt. Get help right away if you have severe pain in your back, sides, or upper abdomen, or if you have severe pain while urinating. This information is not intended to replace advice given to you by your health care provider. Make sure you discuss any questions you have with your health care provider. Document Revised: 04/20/2022 Document Reviewed: 01/26/2022 [employer] Patient Education 2022 [employer]. 08/25/2023 16:35:56 Lithotripsy Lithotripsy Lithotripsy is a treatment that can help break up kidney stones that are too large to pass on theirown. This is a nonsurgical procedure that crushes a kidney stone with shock waves. These shock waves pass through your body and focus on the kidney stone. They cause the kidney stone to break up intosmaller pieces while it is still in the urinary tract. The smaller pieces of stone can pass more easily out of your body in the urine. Tell a health care provider about: Any allergies you have. All medicines you are taking, including vitamins, herbs, eye drops, creams, and xwgx-vjn-avtkhss medicines. Any problems you or family members have had with anesthetic medicines. Any blood disorders you have. Any surgeries you have had. Any medical conditions you have. Whether you are or may be . What are the risks? Generally, this is a safe procedure. However, problems may occur, including: Infection. Bleeding from the kidney. Bruising of the kidney or skin. Scarring of the kidney, which can lead to: ?Increased blood pressure. ?Poor kidney function. ?Return (recurrence) of kidney stones. Damage to other structures or organs, such as the liver, colon, spleen, or pancreas. Blockage (obstruction) of the tube that carries urine from the kidney to the bladder (ureter). Failure of the kidney stone to break into pieces (fragments). What happens before the procedure? Staying hydrated Follow instructions from your health care provider about hydration, which may include: Up to 2 hours before the procedure you may continue to drink clear liquids, such as water, clear fruit juice, black coffee, and plain tea. Eating and drinking restrictions Follow instructions from your health care provider about eating and drinking, which may include: 8 hours before the procedure stop eating heavy meals or foods, such as meat, fried foods, or fatty foods. 6 hours before the procedure stop eating light meals or foods, such as toast or cereal. 6 hours before the procedure stop drinking milk or drinks that contain milk. 2 hours before the procedure stop drinking clear liquids. Medicines Ask your health care provider about: Changing or stopping your regular medicines. This is especially important if you are taking diabetes medicines or blood thinners. Taking medicines such as aspirin and ibuprofen. These medicines can thin your blood. Do not take these medicines unless your health care provider tells you to take them. Taking dpzj-exf-pxmdtxc medicines, vitamins, herbs, and supplements. Tests You may have tests, such as: Blood tests. Urine tests. Imaging tests, such as a CT scan. General instructions Plan to have someone take you home from the hospital or clinic. If you will be going home right after the procedure, plan to have someone with you for 24 hours. Ask your health care provider what steps will be taken to help prevent infection. These may includewashing skin with a germ-killing soap. What happens during the procedure? An IV will be inserted into one of your veins. You will be given one or more of the following: ?A medicine to help you relax (sedative). ?A medicine to make you fall asleep (general anesthetic). A water-filled cushion may be placed behind your kidney or on your abdomen. In some cases, you may be placed in a tub of lukewarm water. Your body will be positioned in a way that makes it easy to target the kidney stone. An X-ray or ultrasound exam will be done to locate your stone. Shock waves will be aimed at the stone. If you are awake, you may feel a tapping sensation as the shock waves pass through your body. A flexible tube with holes in it (stent) may be placed in the ureter. This will help keep urine flowing from the kidney if the fragments of the stone have been blocking the ureter. The procedure may vary among health care providers and hospitals. What happens after the procedure? You may have an X-ray to see whether the procedure was able to break up the kidney stone and how much of the stone has passed. If large stone fragments remain after treatment, you may need to have a second procedure at a later time. Your blood pressure, heart rate, breathing rate, and blood oxygen level will be monitored until youleave the hospital or clinic. You may be given antibiotics or pain medicine as needed. If a stent was placed in your ureter during surgery, it may stay in place for a few weeks. You may need to strain your urine to collect pieces of the kidney stone for testing. You will need to drink plenty of water. If you were given a sedative during the procedure, it can affect you for several hours. Do not drive or operate machinery until your health care provider says that it is safe. Summary Lithotripsy is a treatment that can help break up kidney stones that are too large to pass on theirown. Lithotripsy is a nonsurgical procedure that crushes a kidney stone with shock waves. Generally, this is a safe procedure. However, problems may occur, including damage to the kidney orother organs, infection, or obstruction of the tube that carries urine from the kidney to the bladder (ureter). You may have a stent placed in your ureter to help drain your urine. This stent may stay in place for a few weeks. After the procedure, you will need to drink plenty of water. You may be asked to strain your urine to collect pieces of the kidney stone for testing. This information is not intended to replace advice given to you by your health care provider. Make sure you discuss any questions you have with your health care provider. Document Revised: 04/20/2022 Document Reviewed: 01/26/2022 [employer] Patient Education 2022 [employer]. Follow Up Care 05/18/2023 16:41:41 With:YAMILE CLARKE, Basil Claros, URL Address: [facility] [address] , [place] [address]- When: Unknown [facility] 03-20-2024 Evaluation + Plan note Diagnostic Tests Pending * Electrolyte Panel 08/25/23 [facility] 12-12-2023 Hospital Discharge instructions Patient Education 05/18/2023 16:31:02 Dietary Guidelines to Help Prevent Kidney Stones Dietary Guidelines to Help Prevent Kidney Stones Kidney stones are deposits of minerals and salts that form inside your kidneys. Your risk of developing kidney stones may be greater depending on your diet, your lifestyle, the medicines you take, and whether you have certain medical conditions. Most people can lower their risks of developing kidney stones by following these dietary guidelines. Your dietitian may give you more specific instructions depending on your overall health and the type of kidney stones you tend to develop. What are tips for following this plan? Reading food labels Choose foods with no salt added or low-salt labels. Limit your salt (sodium) intake to less than 1,500 mg a day. Choose foods with calcium for each meal and snack. Try to eat about 300 mg of calcium at each meal.Foods that contain 200 500 mg of calcium a serving include: ?8 oz (237 mL) of milk, mvfjtxr-almmiohzjtjn-txetd milk, and calcium- fortifiedfruit juice. Calcium-fortified means that calcium has been added to these drinks. ?8 oz (237 mL) of kefir, yogurt, and soy yogurt. ?4 oz (114 g) of tofu. ?1 oz (28 g) of cheese. ?1 cup (150 g) of dried figs. ?1 cup (91 g) of cooked broccoli. ?One 3 oz (85 g) can of sardines or mackerel. Most people need 1,000 1,500 mg of calcium a day. Talk to your dietitian about how much calcium is recommended for you. Shopping Buy plenty of fresh fruits and vegetables. Most people do not need to avoid fruits and vegetables, even if these foods contain nutrients that may contribute to kidney stones. When shopping for convenience foods, choose: ?Whole pieces of fruit. ?Pre-made salads with dressing on the side. ?Low-fat fruit and yogurt smoothies. Avoid buying frozen meals or prepared deli foods. These can be high in sodium. Look for foods with live cultures, such as yogurt and kefir. Choose high-fiber grains, such as whole-wheat breads, oat bran, and wheat cereals. Cooking Do not add salt to food when cooking. Place a salt shaker on the table and allow each person to addtheir own salt to taste. Use vegetable protein, such as beans, textured vegetable protein (TVP), or tofu, instead of meat inpasta, casseroles, and soups. Meal planning Eat less salt, if told by your dietitian. To do this: ?Avoid eating processed or pre-made food. ?Avoid eating fast food. Eat less animal protein, including cheese, meat, poultry, or fish, if told by your dietitian. To dothis: ?Limit the number of times you have meat, poultry, fish, or cheese each week. Eat a diet free of meat at least 2 days a week. ?Eat only one serving each day of meat, poultry, fish, or seafood. ?When you prepare animal proteins, cut pieces into small portion sizes. For most meat and fish, oneserving is about the size of the palm of your hand. Eat at least five servings of fresh fruits and vegetables each day. To do this: ?Keep fruits and vegetables on hand for snacks. ?Eat one piece of fruit or a handful of berries with breakfast. ?Have a salad and fruit at lunch. ?Have two kinds of vegetables at dinner. You may be told to limit foods that are high in a substance called oxalate. These include: ?Spinach (cooked), rhubarb, beets, sweet potatoes, and [place] chard. ?Peanuts. ?Potato chips, australian fries, and baked potatoes with skin on. ?Nuts and nut products. ?Chocolate. If you regularly take a diuretic medicine, make sure to eat at least 1 or 2 servings of fruits or vegetables that are high in potassium each day. These include: ?Avocado. ?Banana. ?[place], prune, carrot, or tomato juice. ?Baked potato. ?Cabbage. ?Beans and split peas. Lifestyle Drink enough fluid to keep your urine pale yellow. This is the most important thing you can do. Spread your fluid intake throughout the day. If you drink alcohol: ?Limit how much you have to: ?0 1 drink a day for women who are not . ?0 2 drinks a day for men. ?Know how much alcohol is in your drink. In the [place] one drink equals one 12 oz bottle of beer (355 mL), one 5 oz glass of wine (148 mL), or one 1 oz glass of hard liquor (44 mL). Lose weight if told by your health care provider. Work with your dietitian to find an eating plan and weight loss strategies that work best for you. General information Talk to your health care provider and dietitian about taking daily supplements. Depending on your health and the cause of your kidney stones, you may be told: ?Do not take high-dose supplements of vitamin C (1,000 mg a day or more). ?To take a calcium supplement. ?To take a daily probiotic supplement. ?To take other supplements such as magnesium, fish oil, or vitamin B6. Take pddr-[id number] and prescription medicines only as told by your health care provider. These include supplements. What foods should I limit? Limit your intake of the following foods, or eat them as told by your dietitian. Vegetables Spinach. Rhubarb. Beets. Canned vegetables. Pickles. Olives. Baked potatoes with skin. Grains Wheat bran. Baked goods. Salted crackers. Cereals high in sugar. Meats and other proteins Nuts. Nut butters. Large portions of meat, poultry, or fish. Salted, precooked, or cured meats, such as sausages, meat loaves, and hot dogs. Dairy Cheeses. Beverages Regular soft drinks. Regular vegetable juice. Seasonings and condiments Seasoning blends with salt. Salad dressings. Soy sauce. Ketchup. Barbecue sauce. Other foods Canned soups. Canned pasta sauce. Casseroles. Pizza. Lasagna. Frozen meals. Potato chips. Jamaican fries. The items listed above may not be a complete list of foods and beverages you should limit. Contact a dietitian for more information. What foods should I avoid? Talk to your dietitian about specific foods you should avoid based on the type of kidney stones youhave and your overall health. Fruits Grapefruit. The item listed above may not be a complete list of foods and beverages you should avoid. Contact adietitian for more information. Summary Kidney stones are deposits of minerals and salts that form inside your kidneys. You can lower your risk of kidney stones by making changes to your diet. The most important thing you can do is drink enough fluid. Drink enough fluid to keep your urine pale yellow. Talk to your dietitian about how much calcium you should have each day, and eat less salt and animal protein as told by your dietitian. This information is not intended to replace advice given to you by your health care provider. Make sure you discuss any questions you have with your health care provider. Document Revised: 09/03/2022 Document Reviewed: 09/03/2022 [employer] Patient Education 2022 [employer]. Follow Up Care 05/10/2023 11:01:58 With:YAMILE CLARKE, Basil Claros, URL Address: [facility] [address], [place] [address]- When:Within 3 Month(s) Comments:w/Metabolic Workup [facility] Jeanmarie 10-09-2023 Note [id number] 03-15-2023 [id number]12-28-2021 NoteHNO ID: [id number] Author: DARREL Coburn Service: ? Author Type: Genetic Counselor Type: Progress Notes Filed: 06/17/2021 3:01 PM Note Text: [facility] Consultation Note Genetic Counselor: Zahida Mcgovern, , [facility] Patient: Tiffanie Petersen Patient Name and confirmed at initiation of visit. Appointment occurred with audiovisual communication through [employer] Virtual Visit. HIGH LEVEL SUMMARY: ? The patient's family history is significant for hereditary cancer syndromes. ? The patient has a 50% risk of having the familial PMS2 mutation. ? The patient provided informed consent for Common Hereditary Cancers Panel through [facility]. I will contact the patient via telephone when results are available in 2-3 weeks. IDENTIFICATION AND CHIEF COMPLAINT: Dr. Felicity Govea requested a consultation for genetic counseling and risk assessment for Tiffanie Petersen, a 51 year old female, for discussion of her family history of a known PMS2 gene mutation, confirming a hereditary cancer syndrome in this family. She presents to clinic today to further clarify her risks, and determine if she has also inherited this risk increasing mutation in the family. HISTORY OF PRESENT ILLNESS: Tiffanie Petersen is a 51 year old female with no personal history of cancer. As noted in the family history section, the patient has a family history of a hereditary cancer syndrome. CANCER SURVEILLANCE HISTORY: Colonoscopy: Yes / normal Pelvic Exam: s/p SAVANA-USO SOCIAL HISTORY: Social History Tobacco Use - Smoking status: Not on file - Smokeless tobacco: Not on file Substance Use Topics - Alcohol use: Not on file - Drug use: Not on file FAMILY HISTORY: We obtained a detailed, 4-generation family history. Significant diagnoses are listed below: Mother: , pancreatic cancer, PMS2 (c.903G>T) Daughter: female cancer Father: stomach cancer? Maternal aunt: breast cancer Maternal aunt: ovarian cancer A copy of the patient's pedigree will be available under the scanned documents tab following today's visit. GENETIC COUNSELING RISK ASSESSMENT, DISCUSSION, AND SUGGESTED FOLLOW UP: We reviewed the natural history and genetic etiology of a hereditary cancer syndrome. The patient has a 50% chance of having the same PMS2 mutation (c.903G>T) that was identified in her mother. It was reviewed that her father's side of the family is also suspicious for a hereditary risk factor. Therefore, a multigene panel versus site specific testing was discussed. We discussed that identification of a mutation will help her care providers tailor the patient's medical management. If a mutation is detected, the patient will be referred back to the referring provider and to any additional appropriate care providers to discuss the relevant options. If the family mutation is not found in the patient, this will indicate she does not have the maternal risk factor. However, if no other mutation is detected either it does not role out the possibility of paternal risk factor for her siblings or other paternal family members. It was reviewed that her father's side of the family is also suspicious for a hereditary risk factor. Therefore, a multigene panel versus site specific testing was discussed. After considering the risks, benefits, and limitations, the patient provided informed consent for the following testing: Common Hereditary Cancers Panel through [facility]. Per the patient's request, I will contact her by telephone to discuss these results. A follow up genetic counseling visit will be scheduled if requested. The patient was seen for a total of 20 minutes, greater than 50% of which was spent [id number] counseling. This plan is being carried out per Dr. Wanda Guadarrama's recommendations. This note will also be sent to the referring provider via the electronic medical record. Zahida Mcgovern MS, [facility] Licensed, Certified Genetic Counselor [facility] CC: [facility] Author [facility] March 08, 2023 2:39pm Note Date/Time March 08, 2023 2: 39pm [facility] [address] [place] [address] Urology Consult Note Signed Patient: Tiffanie Petersen MR#: [id number] : 1970 Acct:[id number] Age/Sex: 52 / F Adm Date: 3 Loc: HI Room: Type: [facility] Attending Dr: Basil Caputo MD Copies to: NON STAFF Basil Caputo MD~ History of Present Illness Consult Details Consult Date: 03/08/2023 Reason for Urology Consult: Obstructive uropathy Requesting Provider: Basil Caputo MD HPI: This 52-year-old lady experienced acute right flank pain that started yesterday. She denies having any fevers, chills, hematuria or nausea and vomiting. She presented to the emergency room due to severe flank pain which was unrelenting. Her white count was normal. She was afebrile. Her urine showed blood only. CTscan showed 2 large stones within the right mid to proximal ureter. One of themwas 14 mm and the other was 20 mm. She also had ipsilateral hydronephrosis. She had a small left nonobstructing renal calculus. Urology was consulted for the above reasons. Upon questioning her further she states that she has had stones in the distant past. She was stented before and underwent ESWL. Review of Systems Review of Systems All other systems reviewed & are negative unless noted below or in HPI [facility] Medical History Hypertension Kidney stones Surgical History H/O foot surgery left History of hysterectomy History of knee surgery Family History Other No significant family history Social History Smoking Status: Current every day smoker Tobacco Type: cigarettes Substance Use Type: None Meds Medications and Allergies Allergies Penicillins Allergy (Verified 03/08/23 04:57) Unknown Reaction vancomycin Allergy (Verified 03/08/23 04:57) Hives Home Medications alendronate 35 mg tablet 35 mg PO QWEEK 03/08/23 [History Confirmed 03/08/23] atenolol 50 mg tablet 50 mg PO QPM 03/08/23 [History Confirmed 03/08/23] atorvastatin 20 mg tablet 20 mg PO QAM 03/08/23 [History Confirmed 03/08/23] cyclobenzaprine 10 mg tablet 10 mg PO BID 03/08/23 [History Confirmed 03/08/23] doxycycline hyclate 100 mg capsule 100 mg PO DAILY 21 days #21 caps 03/08/23 [Rx] losartan 50 mg tablet 50 mg PO DAILY 03/08/23 [History Confirmed 03/08/23] meloxicam 7.5 mg tablet 7.5 mg PO DAILY 03/08/23 [History Confirmed 03/08/23] sertraline 25 mg tablet 25 mg PO DAILY 03/08/23 [History Confirmed 03/08/23] solifenacin 10 mg tablet (Vesicare) 10 mg PO DAILY #30 tabs 03/08/23 [Rx] trazodone 50 mg tablet 50 mg PO QHS PRN Sleep 03/08/23 [History Confirmed 03/08/23] Exam Physical Exam Vital Signs: Temp Pulse Resp BP Pulse Ox O2 Del Method 97.8 F 79 16 147/92 H 96 Room Air 03/08/23 13:20 03/08/23 13:38 03/08/23 13:20 03/08/23 13:20 03/08/23 13:20 03/08/23 13:20 Narrative: She is resting in her [facility] bed in no acute distress although she looks extremely fatigued. Vitals are stable. She is afebrile. Abdomen is soft and tender in the right flank. No masses are palpable. Results Labs 03/08/23 07:18 03/08/23 07:18 Labs: Laboratory Results - Last 48 hrs. 03/08/23 07:18: Urine Color Yellow, Urine Appearance Clear, Urine pH 7.5, Ur Specific [place] 1.011, Urine Protein Negative, Urine Glucose (UA) Normal, UrineKetones Negative, Urine Occult Blood 2+ H, Urine Nitrite Negative, Urine Bilirubin Negative, Urine Urobilinogen Normal, Ur Leukocyte Esterase 1+ H, UrineRBC 10-19 H, Urine WBC 3-4, Ur Squamous Epith Cells 0-1, Urine Bacteria None seen, Hyaline Casts 0-8, Urine HCG, Qual Negative 03/08/23 07:18: PHA Creatinine Clear 59.36, Sodium 140, Potassium 4.0, Chloride 105, Carbon Dioxide 28.1, Anion Gap 10.9, BUN 23, Creatinine 1.09, Est GFR (CKD-EPI) > 60.0, Glucose 91, Calcium 9.7, Total Bilirubin 0.5, Direct Bilirubin 0.00L, Indirect Bilirubin 0.5, AST 21, ALT 35, Alkaline Phosphatase 82, Total Protein 8.1, Albumin 4.6, Globulin 3.5, Albumin/Globulin Ratio 1.3, Lipase 23.0 03/08/23 07:18: Corrected WBC 8.4, Uncorrected WBC Count 8.4, RBC 4.13, Hgb 13.4, Hct 38.6, MCV 93.4, MCH 32.4, MCHC 34.7, RDW 13.3, Plt Count 285, MPV 8.0,Neut % (Auto) 75.4, Lymph % (Auto) 15.3, [place] % (Auto) 8.2, Eos % (Auto) 0.8, Baso % (Auto) 0.3, Nucleat RBC Rel Count 0.0, Neut # (Auto) 6.4, Lymph # (Auto) 1.3, [place] # (Auto) 0.7, Eos # (Auto) 0.1, Baso # (Auto) 0.0, Monocyte Dist Width16.55 Assessment/Plan (1) Ureteral calculus, left: Plan: This lady has 2 large right mid to proximal ureteral calculi causing obstruction, and pain. She needs to get unobstructed. I am getting her added on for today's OR schedule for cystoscopy and right stent placement. She has signed an informed consent after all the risks for this procedure were explained. Once she cools down for a week or 2 we then will bring her back and undergo ureteroscopic laser lithotripsy. Once she is stone and stent free we then will need to do a full stone metabolic work- up to figure out the etiology of her stone formation and help her with future stone prevention. Code(s): N20.1 - (2) Kidney stone: Plan: She has a small nonobstructing left renal calculus. This requires no immediate intervention although we need to follow the stone radiographically. Over 30 minutes of clinical time was spent talking with the ER doctor, the nursing staff and the patient along with evaluating her chart and CT scan. Thank you for letting me take part in her care. Code(s): N20.0 - Documented By: Basil Caputo MD 03/08/231432 Signed By: <Electronically signed by MD Basil Caputo> 03/08/23 1439 [facility] Work Phone: Discharge summary Author Nelson Chery [facility] March 08, 2023 3:34pm Note Date/Time March 08, 2023 3: 33pm [facility] [address] [place] [address] Discharge Summary Signed Patient: Tiffanie Petersen MR#: [id number] : 1970 Acct:[id number] Age/Sex: 52 / F Adm Date: 3 Loc: HI Room: Attending Dr: Basil Caputo MD Copies to: NON STAFF DO Basil Dixon MD~ Providers Date of Discharge: 03/08/23 Discharging Provider: Nelson Chery Primary Care Provider: NON STAFF Consults: 03/08/23 11:39 Consult to Urology Routine Discharge Diagnosis (1) Kidney stone: Final Diagnosis Final Discharge Diagnosis: R obstructing uretal stone Summary Hospital Course Hospital course: 52 y/o F with PMHx of HTN/HLD, anxiety, hx of kidney stones presented to the ED with R flank pain since yesterday with associated nausea but no vomiting. Labs largely unremarkable. CT abd with large [id number] obstructing stone with hydronephrosis. Urology contacted and recommended admission for uretal stent placement. She was taken from the ED for stent placement and pt's symptoms much improved. Urology ok with discharge after the procedure and pt was feeling well and asking to be discharged so decision was made to discharge pt with follow up with urology. Pt discharged in stable and improved condition. Condition Condition at Discharge: Stable Status at Discharge Overall status at discharge: patient is progressing back to baseline Time Spent with Patient Time spent providing/coordinating discharge services (# min): 35 Surgeries and Procedures Operation Date: 03/08/23 14:30 Actual Procedures p OR Cysto, Right Retro with right Stent(Right) - Basil Caputo MD Diagnostic Studies Completed and Pending Studies Pending studies at discharge: 03/09/23 05:00 Basic Metabolic Panel [CHEM] IN AM Complete Blood Count Auto Diff IN AM 03/10/23 05:00 Basic Metabolic Panel [CHEM] IN AM Complete Blood Count Auto Diff IN AM 03/11/23 05:00 Basic Metabolic Panel [CHEM] IN AM Complete Blood Count Auto Diff IN AM 03/12/23 05:00 Basic Metabolic Panel [CHEM] IN AM Complete Blood Count Auto Diff IN AM 03/13/23 05:00 Basic Metabolic Panel [CHEM] IN AM Complete Blood Count Auto Diff IN AM 03/14/23 05:00 Complete Blood Count Auto Diff IN AM 03/15/23 05:00 Complete Blood Count Auto Diff IN AM 03/16/23 05:00 Complete Blood Count Auto Diff IN AM 03/17/23 05:00 Complete Blood Count Auto Diff IN AM 03/18/23 05:00 Complete Blood Count Auto Diff IN AM Labs on day of discharge: 03/08/23 07:18: Urine Color Yellow, Urine Appearance Clear, Urine pH 7.5, Ur Specific [place] 1.011, Urine Protein Negative, Urine Glucose (UA) Normal, Urine Ketones Negative, Urine Occult Blood 2+ H, Urine Nitrite Negative, Urine Bilirubin Negative, Urine Urobilinogen Normal, Ur Leukocyte Esterase 1+ H, Urine RBC 10-19 H, Urine WBC 3-4, Ur Squamous Epith Cells 0-1, Urine Bacteria None seen, Hyaline Casts 0-8, Urine HCG, Qual Negative 03/08/23 07:18: PHA Creatinine Clear 59.36, Sodium 140, Potassium 4.0, Chloride 105, Carbon Dioxide 28.1, Anion Gap 10.9, BUN 23, Creatinine 1.09, Est GFR (CKD-EPI) > 60.0, Glucose 91, Calcium 9.7, Total Bilirubin 0.5, Direct Bilirubin 0.00 L, Indirect Bilirubin 0.5, AST 21, ALT 35, Alkaline Phosphatase 82, Total Protein 8.1, Albumin 4.6, Globulin 3.5, Albumin/Globulin Ratio 1.3, Lipase 23.0 03/08/23 07:18: Corrected WBC 8.4, Uncorrected WBC Count 8.4, RBC 4.13, Hgb 13.4, Hct 38.6, MCV 93.4, MCH 32.4, MCHC 34.7, RDW 13.3, Plt Count 285, MPV 8.0, Neut % (Auto) 75.4, Lymph % (Auto) 15.3, [place] % (Auto) 8.2, Eos % (Auto) 0.8, Baso % (Auto) 0.3, Nucleat RBC Rel Count 0.0, Neut # (Auto) 6.4, Lymph # (Auto) 1.3, [place] # (Auto) 0.7, Eos # (Auto) 0.1, Baso # (Auto) 0.0, Monocyte Dist Width 16.55 Exam Physical Exam Vital Signs: Temp Pulse Resp BP Pulse Ox O2 Del Method 97.8 F 84 16 122/80 96 Room Air 03/08/23 13:20 03/08/23 14:35 03/08/23 14:35 03/08/23 14:35 03/08/23 14:35 03/08/23 14:35 Narrative: see H&P for exam Discharge Plan Discharge Plan Patient Disposition: Home Activity: Ambulate as Tolerated Diet: Regular Additional Instructions: Follow-up with your primary care doctor Return to ED if develop worsening symptoms or concerns Instructions: Flank Pain Prescriptions: New doxycycline hyclate 100 mg capsule 100 mg PO DAILY 21 Days Qty: 21 0RF solifenacin [[facility]] 10 mg tablet 10 mg PO DAILY Qty: 30 1RF Continued losartan 50 mg tablet 50 mg PO DAILY Patient Comments: TAKE 1 TABLET BY MOUTH EVERY DAY cyclobenzaprine 10 mg tablet 10 mg PO BID Patient Comments: TAKE 1 TABLET BY MOUTH TWICE A DAY atorvastatin 20 mg tablet 20 mg PO QAM Patient Comments: TAKE 1 TABLET BY MOUTH EVERYDAY AT BEDTIME trazodone 50 mg tablet 50 mg PO QHS PRN (Reason: Sleep) Patient Comments: TAKE ONE TABLET AT BEDTIME NEEDED meloxicam 7.5 mg tablet 7.5 mg PO DAILY Patient Comments: TAKE 1 TABLET BY MOUTH EVERY DAY alendronate 35 mg tablet 35 mg PO QWEEK Patient Comments: TAKE 1 TABLET BY MOUTH ONCE WEEKLY sertraline 25 mg tablet 25 mg PO DAILY Patient Comments: TAKE 1 TABLET BY MOUTH EVERY DAY FOR 100 DAYS atenolol 50 mg tablet 50 mg PO QPM Patient Comments: TAKE 1 TABLET BY MOUTH EVERY DAY IN THE EVENING Follow Up: Basil Caputo MD [Active Staff] - (Our office will call you to get your next step scheduled for ureteroscopic laser lithotripsy) Gabriella Rojas MD [Referring] - Documented By: Nelson Chery DO 03/08/23 153 2 Signed By: <Electronically signed by Nelson Chery DO> 03/08/23 1534 [facility] Work Phone: Evaluation + Plan note No data available for this section [facility] Future Appointments Appointment Date:08/25/2023 03:30:00 PM Scheduled Provider:Basil CAPUTO MD Location:[facility] Appointment Type:URO Office Visit [facility] Evaluation note* Diagnosis Onset Date Resolution Status Flank pain acute Kidney stone acute Ureteral calculus, left acut e [facility] Work Phone: Evaluation noteNo assessment information available [facility] Work Phone: evaluvoarc note* Diagnosis Onset Date Resolution Status Hydroureteronephrosis acute Renal calculus, right acute [facility] Work Phone: Evaluation note* Diagnosis Onset Date Resolution Status Hydronephrosis with ureteral calculus acute Hydroureteronephrosis acute Kidney stone acute Renal calculus, right acute [facility] Work Phone: History and physical note Author [facility] March 08, 2023 3:32pm Note Date/Time March 08, 2023 3: 32pm [facility] [address] [place] [address] Hospitalist H&P Signed Patient: Tiffanie Petersen MR#: [id number] : 1970 Acct:[id number] Age/Sex: 52 / F Adm Date: 3 Loc: HI Room: Type: [facility] Attending Dr: Basil Caputo MD Copies to: NON STAFF DO Basil Dixon MD~ HPI DATE OF EXAMINATION: 03/08/23 CHIEF COMPLAINT: flank pain HISTORY OF PRESENT ILLNESS: Pt is a 52 y/o F with PMHx of HTN/HLD, anxiety, hx of kidney stones presented tot ED with R flank pain since yesterday with associated nausea but no vomiting.Labs largely unremarkable. CT abd with large [id number] obstructing stone with hydronephrosis. Urology contacted and recommended admission for uretal stent placement. She was taken from the ED for stent placement and pt's symptoms much improved. Review of Systems Review of Systems All other systems reviewed & are negative unless noted below or in HPI [facility] Medical History Hypertension Kidney stones Surgical History H/O foot surgery left History of hysterectomy History of knee surgery Family History Other No significant family history Social History Smoking Status: Current every day smoker Tobacco Type: cigarettes Substance Use Type: None Meds Medications and Allergies Allergies Penicillins Allergy (Verified 03/08/23 04:57) Unknown Reaction vancomycin Allergy (Verified 03/08/23 04:57) Hives Home Medications alendronate 35 mg tablet 35 mg PO QWEEK 03/08/23 [History Confirmed 03/08/23] atenolol 50 mg tablet 50 mg PO QPM 03/08/23 [History Confirmed 03/08/23] atorvastatin 20 mg tablet 20 mg PO QAM 03/08/23 [History Confirmed 03/08/23] cyclobenzaprine 10 mg tablet 10 mg PO BID 03/08/23 [History Confirmed 03/08/23] doxycycline hyclate 100 mg capsule 100 mg PO DAILY 21 days #21 caps 03/08/23 [Rx] losartan 50 mg tablet 50 mg PO DAILY 03/08/23 [History Confirmed 03/08/23] meloxicam 7.5 mg tablet 7.5 mg PO DAILY 03/08/23 [History Confirmed 03/08/23] sertraline 25 mg tablet 25 mg PO DAILY 03/08/23 [History Confirmed 03/08/23] solifenacin 10 mg tablet (Vesicare) 10 mg PO DAILY #30 tabs 03/08/23 [Rx] trazodone 50 mg tablet 50 mg PO QHS PRN Sleep 03/08/23 [History Confirmed 03/08/23] Exam Physical Exam Vital Signs: Temp Pulse Resp BP Pulse Ox O2 Del Method 97.8 F 79 16 147/92 H 96 Room Air 03/08/23 13:20 03/08/23 13:38 03/08/23 13:20 03/08/23 13:20 03/08/23 13:20 03/08/23 13:20 Narrative: General: Lying in bed comfortably HEENT: Normocephalic, atraumatic, trachea midline Respiratory: good inspiratory effort, clear to auscultation, no wheeze, no rhonchi, no crackles Cardiovascular: RRR, normal S1 and S2 Abdominal: soft, non-distended, R flank tenderness to deep palpation, no rebound, no guarding, +BS Skin: warm, dry MSK: no edema Results Lab Results Labs: Laboratory Last Values Corrected WBC 8.4 X10E3/uL (3.8-11.6) 03/08/23 07:18 Uncorrected WBC Count 8.4 x10E3/uL (3.8-11.6) 03/08/23 07:18 RBC 4.13 X10E6/uL (3.60-5.00) 03/08/23 07:18 Hgb 13.4 g/dL (11.8-15.4) 03/08/23 07:18 Hct 38.6 % (34.0-46.4) 03/08/23 07:18 MCV 93.4 fl (80-100) 03/08/23 07:18 MCH 32.4 pg (24.7-34.3) 03/08/23 07:18 MCHC 34.7 g/dL (32.0-35.0) 03/08/23 07:18 RDW 13.3 % (11.9-15.3) 03/08/23 07:18 Plt Count 285 x10E3/uL (150-450) 03/08/23 07:18 MPV 8.0 fl (6.3-10.7) 03/08/23 07:18 Neut % (Auto) 75.4 % (.) 03/08/23 07:18 Lymph % (Auto) 15.3 % (.) 03/08/23 07:18 [place] % (Auto) 8.2 % (.) 03/08/23 07:18 Eos % (Auto) 0.8 % (.) 03/08/23 07:18 Baso % (Auto) 0.3 % (.) 03/08/23 07:18 Nucleat RBC Rel Count 0.0 /100 WBC (0-0.5) 03/08/23 07:18 Neut # (Auto) 6.4 x10E3/uL (1.8-7.7) 03/08/23 07:18 Lymph # (Auto) 1.3 x10E3/uL (1.00-4.8) 03/08/23 07:18 [place] # (Auto) 0.7 x10E3/uL (0.0-0.8) 03/08/23 07:18 Eos # (Auto) 0.1 x10E3/uL (0.0-0.45) 03/08/23 07:18 Baso # (Auto) 0.0 x10E3/uL (0.0-0.2) 03/08/23 07:18 Monocyte Dist Width 16.55 % (0.00-20.00) 03/08/23 07:18 PHA Creatinine Clear 59.36 03/08/23 07:18 Sodium 140 mmol/L (136-145) 03/08/23 07:18 Potassium 4.0 mmol/L (3.5-5.1) 03/08/23 07:18 Chloride 105 mmol/L (98-107) 03/08/23 07:18 Carbon Dioxide 28.1 mmol/L (21.0-31.0) 03/08/23 07:18 Anion Gap 10.9 mEq/L (6.0-15.0) 03/08/23 07:18 BUN 23 mg/dL (7-25) 03/08/23 07:18 Creatinine 1.09 mg/dL (0.60-1.20) 03/08/23 07:18 Est GFR (CKD-EPI) > 60.0 mL/Min 03/08/23 07:18 Glucose 91 mg/dL (70-100) 03/08/23 07:18 Calcium 9.7 mg/dL (8.6-10.3) 03/08/23 07:18 Total Bilirubin 0.5 mg/dl (0.3-1.0) 03/08/23 07:18 Direct Bilirubin 0.00 mg/dL (0.03-0.18) L 03/08/23 07:18 Indirect Bilirubin 0.5 mg/dL 03/08/23 07:18 AST 21 U/L (13-39) 03/08/23 07:18 ALT 35 U/L (7-52) 03/08/23 07:18 Alkaline Phosphatase 82 U/L (34-104) 03/08/23 07:18 Total Protein 8.1 gm/dL (6.4-8.9) 03/08/23 07:18 Albumin 4.6 gm/dL (3.5-5.7) 03/08/23 07:18 Globulin 3.5 gm/dL 03/08/23 07:18 Albumin/Globulin Ratio 1.3 03/08/23 07:18 Lipase 23.0 U/L (11.0-82.0) 03/08/23 07:18 Urine Color Yellow (Yellow) 03/08/23 07:18 Urine Appearance Clear (Clear) 03/08/23 07:18 Urine pH 7.5 (5.0-9.0) 03/08/23 07:18 Ur Specific [place] 1.011 (1.001-1.030) 03/08/23 07:18 Urine Protein Negative mg/dL (Negative) 03/08/23 07:18 Urine Glucose (UA) Normal mg/dL (Normal) 03/08/23 07:18 Urine Ketones Negative (Negative) 03/08/23 07:18 Urine Occult Blood 2+ (Negative) H 03/08/23 07:18 Urine Nitrite Negative (Negative) 03/08/23 07:18 Urine Bilirubin Negative (Negative) 03/08/23 07:18 Urine Urobilinogen Normal mg/dL (Normal) 03/08/23 07:18 Ur Leukocyte Esterase 1+ (Negative) H 03/08/23 07:18 Urine RBC 10-19 /HPF (0-4) H 03/08/23 07:18 Urine WBC 3-4 /HPF (0-4) 03/08/23 07:18 Ur Squamous Epith Cells 0-1 /HPF (0-2) 03/08/23 07:18 Urine Bacteria None seen (None Seen) 03/08/23 07:18 Hyaline Casts 0-8 /LPF (0-8) 03/08/23 07:18 Urine HCG, Qual Negative 03/08/23 07:18 Assessment & Plan Assessment/Plan (1) Kidney stone: Plan # R obstructing uretal stone - CT with [id number] obstructing stone with hydronephrosis - urology consulted for stent placement - pain/nausea control - IVF - abx # HTN/HLD - cont home meds # Anxiety - cont home meds Disposition: Pt with obstructing r sided uretal stone admitted for urology evaluation and stent placement today. IP vs OBS Justification Based on differential dx, clinical care plan, and risk of adverse events, if untreated, in my clinical judgement this patient requires an acute care setting as: INPATIENT because of an expectation of an over 2 midnight stay. Estimated length of stay (# of days): 3 Time Spent With Patient (min): 35 Documented By: Nelson Chery DO 03/08/23 152 7 Signed By: <Electronically signed by Nelson Chery DO> 03/08/23 1532 [facility] Work Phone: Hospital Discharge instructions No data available for this section [facility] Additional Instructions Follow-up with your primary care doctor Return to ED if develop worsening [facility] Work Phone: Progress note No data available for this section [facility] Summary Purpose Family History No Family History Records Found Relationship Condition Age at Onset Recorded Date/T wang Not Specified No pertinent family history Unknown Advance Directives No Advanced Directives Records Found Advance Directive Response Recorded Date/ Time Advance Directives No March 08, 2023 8:03am Advance Directive Response Recorded Date/ Time Advance Directives No March 08, 2023 7:03am Chief Complaint and Reason for Visit Chief Complaint abd pain Reason for Visit Flank pain Kidney stone Ureteral calculus, left Chief Complaint abd pain blood in urine,nausea-sent by Reason for Visit Flank pain Kidney stone Ureteral calculus, left Chief Complaint abd pain blood in urine,nausea-sent by dr Tobin cormier, s/p stent placement Reason for Visit Flank pain Kidney stone Ureteral calculus, left Chief Complaint abd pain blood in urine,nausea-sent by dr Tobin cormier, s/p stent placement Kidney Stones Reason for Visit Flank pain Kidney stone Ureteral calculus, left Chief Complaint Kidney Stones kidney stones Chief Complaint kidney stones rt side pain Reason for Visit Hydroureteronephrosi s Renal calculus, right Chief Complaint kidney stones rt side pain rt side pain Reason for Visit Hydronephrosis with ureteral calculus Hydroureteronephrosis Kidney stone Renal calculus, right Additional Source Comments INFORMATION SOURCE (unrecogn ized section and content) DATE CREATED AUTHOR 12/01/2017 [facility] DATE CREATED AUTHOR AUTHOR'S ORGANIZ ATION 09/05/2018 [facility] DATE CREATED AUTHOR AUTHOR'S ORGANIZ ATION 10/24/2018 [facility] DATE CREATED AUTHOR AUTHOR'S ORGANIZ ATION 01/16/2021 [facility] DATE CREATED AUTHOR AUTHOR'S ORGANIZ ATION 08/28/2021 [facility] DATE CREATED AUTHOR AUTHOR'S ORGANIZ ATION 05/13/2022 [facility] DATE CREATED AUTHOR AUTHOR'S ORGANIZ ATION 08/17/2023 [facility] EP[facility] DATE CREATED AUTHOR AUTHOR'S ORGANIZ ATION 09/28/2023 [facility] DATE CREATED AUTHOR AUTHOR'S ORGANIZ ATION 09/29/[address] [facility] Patient Care team informatio n (unrecognized section and content) Team Status: Active Member Role Status Dates Gabrilela Rojas MD Primary Care Provider Active Team Status: Inactive Member Role Status Dates Manny Neff DO Emergency Provider Active Basil Caputo MD Other Provider Active Gabriella Rojas MD Primary Care Provider Active Nelson Chery DO Attending Provider Active Team Status: Inactive Member Role Status Dates Gabriella Rojas MD Primary Care Provider Active Giancarlo Catalan PA-C Emergency Provider Active Team Status: Inactive Member Role Status Dates Gabriella Rojas MD Primary Care Provider Active Basil Caputo MD Attending Provider Active Team Status: Inactive Member Role Status Dates Gabriella Rojas MD Primary Care Provider Active Start: June 03, 2023 End: June 03, 2023 Basil Caputo MD Attending Provider Active St art: June 03, 2023 End: June 03, 2023 Team Status: Inactive Member Role Status Dates Gabriella Rojas MD Primary Care Provider Active Start: August 23, 2023 End: August 23, 2023 Basil Caputo MD Attending Provider Active St art: August 23, 2023 End: August 23, 2023 Team Status: Active Member Role Status Dates Gabriella Rojas MD Primary Care Provider Active Start: September 21, 2023 Everardo Edwards DO Emergency Provider Active Start: September 21, 2023 Bret Rangel MD RES Active Sta rt: September 21, 2023 Tye Gracia MD Admit Provider, Atte nding Provider Active Start: September 21, 2023 Team Status: Inactive Member Role Status Dates Gabriella Rojas MD Primary Care Provider Active Start: September 21, 2023 End: September 22, 2023 Everardo Edwards DO Emergency Provider Active Start: September 21, 2023 End: September 22, 2023 Bret Rangel MD RES Active Sta rt: September 21, 2023 End: September 22, 2023 Tye Gracia MD Admit Provider Active Start: September 21, 2023 End: September 22, 2023 Ramon Isaac MD Attending Provider Active Start: September 21, 2023 End: September 22, 2023 Adonay Lugo MD Other Provider Active Start: September 21, 2023 End: September 22, 2023 Team Status: Active Member Role Status Dates Gabriella Rojas MD Primary Care Provider Active Start: September 21, 2023 Everardo Edwards DO Emergency Provider Active Start: September 21, 2023 Bret Rangel MD RES Active Sta rt: September 21, 2023 Tye Gracia MD Admit Provider, Atte nding Provider, Other Provider Active Start: September 21, 2023 Goals (unrecognized section and content) Goals may be documented in a n alternate section FOR RECORDS PERTAINING TO PATIENTS WHO ARE OR HAVE BEEN ENROLLED IN A CHEMICAL DEPENDENCY/SUBSTANCEABUSE PROGRAM, SOME INFORMATION MAY BE OMITTED. This clinical summary was aggregated from multiple sources. Caution should be exercised in using it in the provision of clinical care. This summary normalizes information from multiple sources, and as a consequence, information in this document may materially change the coding, format and clinical context of patient data. In addition, data may be omitted in some cases. CLINICAL DECISIONS SHOULD BE BASED ON THE PRIMARY CLINICAL RECORDS. [facility]. provides no warranty or guarantee of the accuracy or completeness of information in this document.
--- NOTE | 2023-09-30 06:45 | XR_ITS ---
The [address] [address] Patient Name: TIFFANIE PETERSEN MRN: [id number] date: 1970 Sex: F Assigned Patient Location: [facility] Current Patient Location: Accession/Order Number: [id number] Exam Date: 09/30/2023 07:02 Report Date: 09/30/2023 09:52 At the request of: HASMUKH OVALLE Procedure: XR abdomen 1V EXAM: XR abdomen 1V HISTORY: kidney stones COMPARISON: None. TECHNIQUE: AP view of the abdomen. FINDINGS: Nonobstructive bowel gas pattern is noted. There are left renal calculi. Indwelling right double-J ureteral stent. The osseous structures are intact. XR/XR abdomen 1V IMPRESSION: Nonobstructive bowel gas pattern. Left nephrolithiasis. Indwelling right double-J ureteral stent. Electronically authenticated by: NIURKA CRUM Date: 09/30/2023 09:52
[2023-09-30] MEDS: LACTATED RINGER'S SOLUTION 1,000 ML 50 ML IV (07:29)
[2023-09-30] MEDS: CIPROFLOXACIN IN 5 % DEXTROSE 400 MG/200 ML PIGGYBACK 200 MG IV (07:47)
--- NOTE | 2023-09-30 08:43 | PM.URSON ---
Urology Surgery Operative Note Operative Note Procedure Date: 09/30/23 Time Out Performed: yes Pre-op Diagnosis: Left nephrolithiasis status post right stent placement Post-op Diagnosis: same as pre-op Procedures performed: 1. Cystoscopy. 2. Right stent removal. 3. Left ESWL. Anesthesia: General-LMA Primary Surgeon: Basil Caputo Complications: None Estimated blood loss (mL): 5 Findings: Left nephrolithiasis x 2, nonobstructing Specimens: None Indications for Procedures: This lady recently had right-sided ureteroscopic laser lithotripsy and stent placement done. She now presents for left ESWL and cystoscopy with a right stent removal. She has signed an informed consent for these procedures after risks were explained. Some of these risks include bleeding, perinephric hematoma, infection and anesthesia to name a few. Detailed description of Procedure: The patient was brought to the Operating Room and placed on Siemens electromagnetic lithotripsy treatment table in the supine position. SCDs were placed on their lower extremities and turned on and functioning during the entire case. Timeout was done by all parties in the room. We all agreed upon the patient's identification and the planned procedures for this patient. General Anesthesia was then administered via LMA. Treatment head was then brought to the patient's correct side. While using flourscopy the stone was identified and lined up into the crosshairs. We then began applying shocks at power level 2.0 and increased to a maximum power level of 3.5. Intermittent fluoroscopy revealed that the larger lower stone that we lined up steadily fragmented. We applied 1500 shocks. We then lined up the upper of the 2 stones and applied the second 1500 shocks. The stone also fragmented well. 1 small fragment was still visible in this stone area. The procedure was terminated after 3000 shocks were delivered. The patient was then placed in the frog-leg position. Her perineum and genitalia were sterilely prepped and draped in the usual fashion. I passed a flexible cystoscope per urethra and into the bladder. Panendoscopy in the bladder revealed bloody urine and poor visibility. Once I identified the right-sided stent I passed a flexible grasping forceps and grasped the end of the stent. The scope and stent were then removed. She was then transferred to a rpound bed and wheeled to PACU in stable condition.
--- NOTE | 2023-09-30 09:27 | PC.NURSE ---
BLOOD TINGED URINE NO STONES
== END 2023-09-30 09:41 | disposition home or self-care (01) ==
PROVIDERS: Visit Provider Urology
PROC: (CPT 873; principal; 2023-09-30 08:00)
DX: N20.0 Calculus of kidney (principal); F32.A Depression, unspecified; J43.9 Emphysema, unspecified; F17.210 Nicotine dependence, cigarettes, uncomplicated; E78.5 Hyperlipidemia, unspecified; I10 Essential (primary) hypertension; E11.9 Type 2 diabetes mellitus without complications; Z87.442 Personal history of urinary calculi; Z90.710 Acquired absence of both cervix and uterus; R31.21 Asymptomatic microscopic hematuria; R82.991 Hypocitraturia
CPT/HCPCS: 50590; 52310; 36415; 74018; J1094; J2704